=== PATIENT | female | born 1940 | race Caucasian/White ===

== ENCOUNTER → 2017-05-03 11:20 | Outpatient (CLI) | payer MEDICARE, SELFPAY ==
[2017-05-03 12:42] LABS: Anion Gap 5 (5-15); BUN 12 mg/dL (7-18); BUN/Creat Ratio 18.8 RATIO (10-20); Calcium,Total 8.6 mg/dL (8.5-10.1); Chloride 106 mmol/L (98-107); Creatinine, Serum 0.64 mg/dL (0.55-1.02); EST Glomerular Filtration Rate 97 mL/min (>60); Est Glom Filt Rate - Afr Amer 117 mL/min (>60); Glucose 76 mg/dL (74-106); Potassium 2.9 mmol/L (3.5-5.1); Sodium Level 140 mmol/L (136-145); Thyroid Stim Hormone (TSH) 2.78 uIU/mL (0.358-3.74)
[2017-05-04 09:28] LABS: PTHIN 73.7 pg/mL (18.4-80.1)
[2017-05-04 09:42] LABS: Vitamin D,25 Hydroxy 36.2 ng/mL (29.95-100.01)
== END ==
PROVIDERS: Family Provider Family Medicine; PCP Family Medicine; Visit Provider Family Medicine
DX: E03.9 Hypothyroidism, unspecified (principal); M81.0 Age-related osteoporosis without current pathological fracture
CPT/HCPCS: 36415; 80048; 82306; 82330; 83970; 84443

== ENCOUNTER → 2017-05-16 13:56 | Outpatient (CLI) | payer MEDICARE, SELFPAY ==
[2017-05-16 16:23] LABS: Anion Gap 7 (5-15); BUN 10 mg/dL (7-18); Calcium,Total 9.2 mg/dL (8.5-10.1); Chloride 102 mmol/L (98-107); Creatinine, Serum 0.67 mg/dL (0.55-1.02); EST Glomerular Filtration Rate 92 mL/min (>60); Est Glom Filt Rate - Afr Amer 111 mL/min (>60); Glucose 72 mg/dL (74-106); Potassium 3.3 mmol/L (3.5-5.1); Sodium Level 141 mmol/L (136-145)
== END ==
PROVIDERS: Visit Provider Family Medicine
DX: E87.6 Hypokalemia (principal)
CPT/HCPCS: 36415; 80048

== ENCOUNTER → 2017-05-19 09:42 | Outpatient (CLI) | payer MEDICARE, SELFPAY ==
--- NOTE | 2017-05-19 10:02 | CDU_ITS ---
Reason For Study: Carotid stenosis Rt. Velocities/BP Lt. Velocities/BP Prox CCA 87.4/18.2 cm/sec. Prox CCA 111.0/21.1 cm/sec. Mid CCA 82.7/16.4 cm/sec. Mid CCA 81.5/22.3 cm/sec. Dist CCA 75.6/17.6 cm/sec. Dist CCA 76.8/19.3 cm/sec. Prox ICA 58.6/18.2 cm/sec. Prox ICA 56.9/19.3 cm/sec. Mid ICA 76.8/21.7 cm/sec. Mid ICA 68.0/23.5 cm/sec. Dist ICA 76.8/24.0 cm/sec. Dist ICA 72.7/23.5 cm/sec. Rt. ICA/CCA = .93. Lt. ICA/CCA = .89. Prox ECA 56.9/10.0 cm/sec. Prox ECA 63.9/9.4 cm/sec. Rt. Vert. 61.6/15.8 cm/sec. Lt. Vert. 62.1/18.8 cm/sec. Right Extracranial There is intimal thickening but no significant atherosclerotic plaque noted in the right common carotid artery. There is no significant atherosclerotic plaque noted in the right internal carotid artery. There is no significant atherosclerotic plaque noted in the right external carotid artery. Antegrade flow is noted in the right vertebral artery. Left Extracranial There is intimal thickening but no significant atherosclerotic plaque noted in the left common carotid artery. There is no significant atherosclerotic plaque noted in the left internal carotid artery. There is no significant atherosclerotic plaque noted in the left external carotid artery. Antegrade flow is noted in the left vertebral artery. Procedure Carotid Duplex 15246. Exam performed in department. Interpretation Summary No significant atherosclerotic plaque or stenosis noted in the internal carotid arteries bilaterally. Flow within the vertebral arteries is antegrade bilaterally. Ordering Physician: Tereso Abrams Referring Physician: Tereso Abrams Performed By: Odette Salvador RVT
== END ==
PROVIDERS: Family Provider Family Medicine; PCP Family Medicine; Visit Provider Family Medicine
DX: I65.23 Occlusion and stenosis of bilateral carotid arteries (principal)
CPT/HCPCS: 93880

== ENCOUNTER → 2017-05-24 08:29 | Outpatient (CLI) | payer MEDICARE, SELFPAY ==
--- NOTE | 2017-05-24 08:32 | BD_ITS ---
STUDY: DUAL ENERGY X-RAY ABSORPTIOMETRY / DXA REASON FOR EXAM: Female, 76 years old. The patient is postmenopausal. Loss of height. TECHNIQUE: Bone Mineral Density (BMD) measurements of lumbar spine and bilateral hips were obtained. COMPARISON: Comparison is made with prior study dated January 14, 2015. FINDINGS: Lumbar Spine (L1-L4): g/cm2 (0.788) / T-score (-3.2) / Z-score (-1.4) Findings are suggestive of osteoporosis with a high fracture risk. Left Femur Total: g/cm2 (0.799) / T-score (-1.7) / Z-score (0.1) Left Femoral Neck: g/cm2 (0.717) / T-score (-2.3) / Z-score (-0.4) Right Femur Total: g/cm2 (0.788) / T-score (-1.7) / Z-score (0.0) Right Femoral Neck: g/cm2 (0.739) / T-score (-2.2) / Z-score (-0.2) The T-Scores on the most recent prior examination were: Lumbar Spine (L1-L4): There has been improvement of bone density since the previous examination. Left Femur Total: which represents an improvement of 5.0%. Right Femur Total: which represents an improvement of 4.9%. BD/Dexa Bone Density Study IMPRESSION: The patient is considered osteoporotic at the level of the lumbar spine as outlined below according to World Brian Organization (WHO) criteria with a high fracture risk. There has been improvement of bone density since the previous examination. Reference Information: The T-score is the number of standard deviations above or below the standard which is normal for young adults at their peak bone mineral density. The World Health Organization (WHO) interprets the T-scores as follows: Above -1 Normal bone density Between -1 and -2.5 Osteopenia Equal to / or below -2.5 Osteoporosis As a practical clinical guideline, osteopenia may be graded as follows: Mild -1 through -1.5 Moderate -1.6 through -2.0 Severe -2.1 through -2.4 The Z-score is the number of standard deviations above or below age-matched controls. A Z-score of less than -1.5 would be considered abnormal. References: 1. NIH Osteoporosis and Related Bone Diseases http://www.osteo.org 2. International Society for Clinical Densitometry http://www.iscd.org 3. National Osteoporosis Foundation http://www.nof.org Electronically Signed: Elie Newman MD at 13:27 EDT Tel [phone], Service support ,
--- NOTE | 2017-05-24 08:38 | HPBI_ITS ---
MAMMOGRAPHY - BILATERAL SCREENING REASON FOR EXAM: Female, 76 years old. Routine annual screening examination. PERTINENT HISTORY: Aunt with breast cancer. TECHNIQUE: Digital bilateral breast linda (3D mammographic acquisition) in the CC and MLO projections. 2-D mediolateral oblique (MLO) and craniocaudad (CC) views of both breasts were obtained. CAD: Full Field Digital Mammography with Computer Added Detection was performed. COMPARISON: Comparison is made with prior study dated April 05, 2016 and January 14, 2015. FINDINGS: Breast Composition: The breasts are heterogeneously dense, which may obscure small masses. There are no dominant masses or suspicious calcifications. No other significant abnormalities are identified. There has been no significant change since the prior study. HPBI/SCREENING MAMM (CAD), BILAT IMPRESSION: Stable bilateral screening mammogram. Yearly follow-up mammogram recommended. (A) ASSESSMENT CATEGORY: BIRADS Category 1: Negative. A letter regarding these results will be sent to the patient by the facility within 30 days. Approximately 10% of breast cancers are not detected by mammography. A normal mammogram should not delay biopsy of a clinically suspicious abnormality. [id number] Electronically Signed: Elie Newman MD at 9:50 EDT Tel [phone], Service support ,
== END ==
PROVIDERS: Family Provider Family Medicine; PCP Family Medicine; Visit Provider Family Medicine
DX: Z00.00 Encounter for general adult medical examination without abnormal findings (principal); M81.0 Age-related osteoporosis without current pathological fracture; Z78.0 Asymptomatic menopausal state; Z12.31 Encounter for screening mammogram for malignant neoplasm of breast
CPT/HCPCS: 77063; 77067; 77080

== ENCOUNTER → 2017-06-06 15:07 | Outpatient (CLI) | payer MEDICARE, SELFPAY ==
[2017-06-06 17:43] LABS: Anion Gap 7 (5-15); BUN 12 mg/dL (7-18); BUN/Creat Ratio 19.5 RATIO (10-20); Calcium,Total 8.7 mg/dL (8.5-10.1); Chloride 102 mmol/L (98-107); Creatinine, Serum 0.62 mg/dL (0.55-1.02); EST Glomerular Filtration Rate 101 mL/min (>60); Est Glom Filt Rate - Afr Amer 122 mL/min (>60); Glucose 81 mg/dL (74-106); Potassium 3.6 mmol/L (3.5-5.1); Sodium Level 138 mmol/L (136-145)
== END ==
PROVIDERS: Family Provider Family Medicine; PCP Family Medicine; Visit Provider Family Medicine
DX: E87.6 Hypokalemia (principal)
CPT/HCPCS: 36415; 80048

== ENCOUNTER → 2017-06-09 10:49 | Outpatient (CLI) | payer MEDICARE, SELFPAY ==
--- NOTE | 2017-06-09 11:02 | RAD_ITS ---
STUDY: X-RAY - CERVICAL SPINE REASON FOR EXAM: Female, 76 years old. Chronic neck pain. TECHNIQUE: 6 view(s) of the cervical spine were obtained including oblique views. COMPARISON: None FINDINGS: Normal anterior atlantoaxial articulation. Normal odontoid process. Normal cervical lordosis. There is multi-level endplate spondylosis. There is multi-level degenerative disc disease with multilevel disc space narrowing. Facet joint osteoarthritis. There is evidence for neural foraminal stenosis at the right C4-C5 and C5-C6 levels. The soft tissue structures are unremarkable. RAD/Cerv Spine 4 or 5 Views IMPRESSION: Multilevel spondylosis and disc space narrowing. 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 Electronically Signed: Elie Newman MD at 11:22 EDT Tel [phone], Service support ,
== END ==
PROVIDERS: Family Provider Family Medicine; PCP Family Medicine; Visit Provider Family Medicine
DX: M47.892 Other spondylosis, cervical region (principal); M48.02 Spinal stenosis, cervical region
CPT/HCPCS: 72050

== ENCOUNTER 2017-07-12 08:00 | Outpatient (RCR) | payer MEDICARE, SELFPAY ==
--- NOTE | 2017-06-15 12:08 | HP.PTEVAL_ITS ---
Patient's Visit Information DEANA LYNN is a 76 year old F referred to Physical Therapy by Tereso Abrams with a diagnosis of CERVICAL DDD. Date of Evaluation: 06/15/17 Physical Therapist: Josep Quintanilla PT, - Visit Plan Frequency: 2x /Week Duration: 3 Weeks Plan: US/MHP,CERVICAL ROM,POSTURAL STRENGTHENING,ICTX - Subjective Subjective: This 76 y/o female presents to physical therapy with cervical DDD for several years. Symptoms base at cervical spine desribed as dull pain. Symptoms worse with flexion ,yoga bending foward.. Symptoms better on the move exercises.Denies parathesia/tingling.Denies LAMAR/dizzines/tinnutus. Patient seen DR had x-rays showed DDD and right foraminal stenosis. Sleeping okay at night. VOCATION: retired. SOCIAL: - Pain Bilateral Neck Pain Intensity (Out of 10): 3 Pain Intensity Range: 10 - Objective POSTURE: mild foward posture rounded shoulders head foward. NEURO: denies parathesia/tingling ,reflexes C5-6-7 /. PALAPTION: tender UT/LEVATOR ,. AROM : BUE WFL. CERVICAL ROM: cervical ROM min loss,extension mod loss,rotation mod loss,extension mod loss pain worse on right. MMT: grossly 4/5 ,shoulder 4-/5 - Special Tests C/S Radiculapathy - Left Upper limb tension test: Negative C/S Radiculapathy - Right Upper limb tension test: Negative C/S Radiculapathy - Left Spurlings: Negative C/S Radiculapathy - Right Spurlings: Negative C/S Radiculapathy - Left Cervical distraction: Negative C/S Radiculapathy - Right Cervical distraction: Negative C/S Radiculapathy - Left Relief test: Negative - Goals Goal 1:: Patient to be Independant with HEP Goal Time Frame: 2-4 Weeks Goal 2:: Patient to be Independant with posture for ADL'S Goal Time Frame: 2-4 Weeks Goal 3:: Patient decrease cervical pain by 50% or greater to improve function with ADL'S Goal Time Frame: 2-4 Weeks Goal 4:: Patient to improve cervical ROM for function of recovery Goal Time Frame: 2-4 Weeks Goal 5:: Patient be able to perform ADLS',yoga and housework tasks with min limiations Goal Time Frame: 2-4 Weeks - Rehabilitation Potential Physical Therapy Diagnosis: This patient has cervical pain assymtrical central affects with pain with Cervical ROM ,function ,ADL'S thus benifit from skilled PT Rehabilitation Potential: Good - Anticipated Interventions Patient/Client Instruction: Educate patient on: Condition, Plan of Care For the Purpose of:: To decrease pain, To increase ROM, To improve muscle performance and motor function, To improve ability to perform ADL's, To increase tolerance to activity/condition/position, To improve performance and independence with ADL's, To improve ability of physical actions for home/ community/work/leisure, To improve health of tissue, To decrease soft tissue restriction, To increase flexibility/ROM, To improve ability to perform tasks related to life management Therapeutic Exercise to Include: Strength training, Power training, Postural training, Flexibilty training, Active ROM For the Purpose of:: To decrease pain, To increase ROM, To improve muscle performance and motor function, To improve ability to perform ADL's, To increase tolerance to activity/condition/position, To improve performance and independence with ADL's, To improve ability of physical actions for home/ community/work/leisure, To improve health of tissue, To decrease soft tissue restriction, To increase flexibility/ROM, To reduce risk of recurrence, To improve ability to perform tasks related to life management TENS: Yes IF ES: Yes Cryotherapy (ice pack, ice massage): Yes Thermo therapy (hot pack): Yes Ultrasound (thermal/non thermal): Yes Intermittent cervical traction: Yes For the Purpose of:: To decrease pain, To increase ROM, To improve nutrient delivery to tissue, To increase oxygenation perfusion, To improve health of tissue, To decrease soft tissue restriction Thank you for the opportunity to evaluate your patient. For Medicare and Medicare HMO plans, please review the plan of care and approve it. It will need to be FAXED BACK to us at [phone] for Medicare purposes. Please let me know if there are questions or concerns regarding this plan of care. Physician Signature: Date:
--- NOTE | 2017-07-12 08:53 | HP.PTDCSUM ---
HP - PT D/C Summary It has been my pleasure to treat DEANA LYNN under orders from Tereso Abrams, for the diagnosis of CERVICAL DDD for a total of 7 visit(s). Discharge Date: 07/12/17 Please see the following information for a summary of their discharge status. - Subjective Subjective: Pt states that she is doing well. She denies pain prior to the session. She will occasionally have pain while she is moving items into her new condo. She has tightness with R cervical rotation and lateral flexion. She remains compliant with HEP. She would like to be done after this visit. - Pain Bilateral Neck Pain Intensity (Out of 10): 0 - Overall Improvement % Improvement: 50 - Objective Objective/Function: Observation: forward head, high tone B upper traps. ROM: cervical flexion 25% limited, extension 25% limited, L rotation full, R rotation limited 25% and elicits pain,. thoracic extension ROM impaired with pain at end range but no worse after wards. MMT: 4/5 grossly ,4-/5. NEURO: intact. PALAPTION: UT/LEVATOR - Goals Goal 1:: Patient to be Independant with HEP Goal Progress: Goal Met Goal 2:: Patient to be Independant with posture for ADL'S Goal Progress: Goal Met Goal 3:: Patient decrease cervical pain by 50% or greater to improve function with ADL'S Goal Progress: Goal Met Goal 4:: Patient to improve cervical ROM for function of recovery Goal Progress: Goal Met Goal 5:: Patient be able to perform ADLS',yoga and housework tasks with min limiations Goal Progress: Goal Met - Plan Plan: Discharge. Pt to continue HEP to sustain gains made with PT. - D/C Information Discharge Comments: HEP If there are questions or concerns regarding this patient's physical therapy, please feel free to call me at [phone]. Thank you for the referral of this patient. Sincerely, Josep Quintanilla, PT,
== END 2017-07-12 19:00 | disposition home or self-care (01) ==
LOC: PT 08:00
PROVIDERS: Family Provider Family Medicine; PCP Family Medicine; Visit Provider Family Medicine
DX: M50.30 Other cervical disc degeneration, unspecified cervical region (principal)
CPT/HCPCS: 97035; 97140; 97162

== ENCOUNTER → 2017-11-28 09:09 | Outpatient (CLI) | payer MEDICARE, SELFPAY ==
[2017-11-28 10:28] LABS: Hematocrit 39.6 % (37-47); Hemoglobin 13.1 g/dl (12.0-15.0); Mean Corp Hgb Conc 33.1 g/gl (32-36); Mean Corpuscular Hgb 29.9 pg (27.0-32.0); Mean Corpuscular Volume 90.4 fL (81-99); Mean Platelet Vol. 10.2 fl (6.2-12.0); Platelet Count 231 K/mm3 (150-450); RBC Distribution Width CV 13.1 % (11.6-14.6); RBC Distribution Width SD 43.4 fl (35.1-43.9); Red Blood Count 4.38 M/mm3 (4.2-5.4); White Blood Count 3.4 K/mm3 (4.4-11.0)
[2017-11-28 10:29] LABS: Scan Indicated on CBC? Y/N NO
[2017-11-28 11:16] LABS: Anion Gap 9 (5-15); BUN 11 mg/dL (7-18); BUN/Creat Ratio 17.2 RATIO (10-20); Calcium,Total 8.8 mg/dL (8.5-10.1); Chloride 103 mmol/L (98-107); Creatinine, Serum 0.64 mg/dL (0.55-1.02); EST Glomerular Filtration Rate 96 mL/min (>60); Est Glom Filt Rate - Afr Amer 116 mL/min (>60); Glucose 77 mg/dL (74-106); Iron 65 ug/dL (50-170); Potassium 3.4 mmol/L (3.5-5.1); Sodium Level 140 mmol/L (136-145); T4 Free Direct 1.25 ng/dL (0.76-1.46)
== END ==
PROVIDERS: Family Provider Family Medicine; PCP Family Medicine; Visit Provider Family Medicine
DX: M81.0 Age-related osteoporosis without current pathological fracture (principal); D64.9 Anemia, unspecified; E03.9 Hypothyroidism, unspecified
CPT/HCPCS: 36415; 80048; 83540; 84439; 84443; 85027

== ENCOUNTER 2018-01-09 08:52 | Observation (INO) | payer MEDICARE, SELFPAY ==
[2018-01-09] VITALS (15 sets, daily range): BP systolic 142–189; BP diastolic 76–111; PULSE 76–98; RESP 16–18; TEMP 36.8–37.4; O2SAT 94–100; BMI 20.9
--- NOTE | 2018-01-09 09:13 | EKG12_ITS ---
Test Reason : DIZZINESS Blood Pressure : / mmHG Vent. Rate : 085 BPM Atrial Rate : 085 BPM P-R Int : 202 ms QRS Dur : 072 ms QT Int : 380 ms P-R-T Axes : 076 026 060 degrees QTc Int : 452 ms Normal sinus rhythm Possible Left atrial enlargement Nonspecific ST and T wave abnormality Abnormal ECG Confirmed by JANA COOPER, KARLY ([id number]), editor book KRISTINE OSBORNE ([id number]) on 01/11/2018 11:18:37 AM Referred By: JORGE Confirmed By:KARLY BATES MD
--- NOTE | 2018-01-09 09:13 | CT_ITS ---
STUDY: CT BRAIN WITHOUT CONTRAST REASON FOR EXAM: Female, 77 years old. Dizziness. RADIATION DOSAGE (If Supplied By Facility): CTDIvol = ( 44.99 ) mGy, DLP = ( 745.49 ) mGycm TECHNIQUE: Transaxial CT imaging of the brain was performed without administration of intravenous contrast material. Individualized dose optimization techniques were used for this CT. COMPARISON: Comparison is made with prior study dated December 03, 2015. FINDINGS: Normal soft tissue structures. Normal calvarium. There is mild cerebral atrophy with widening of the extra-axial spaces and ventricular dilatation. There are areas of decreased attenuation within the white matter tracts of the supratentorial brain, consistent with microvascular disease changes. Normal basal ganglia and thalami. Normal brainstem. Normal cerebellum. There is no intracranial hemorrhage. There are no findings of an acute ischemic infarction. Atherosclerotic calcification of the cavernous portions of the internal carotid arteries bilaterally as well as the vertebral arteries. Normal visualized paranasal sinuses. CT/Brain/Head without Contrast IMPRESSION: Chronic involutional changes of the brain. Electronically Signed: Elie Newman MD at 10:27 EST Tel [phone], Service support ,
[2018-01-09 09:32] LABS: Absolute Lymphocyte Count 0.99 X10^3/ul (0.83-4.51); Absolute Neutrophil Count 2.4 X10^3/uL (2.0-7.7); Basophil# 0.01 X10^3/uL; Basophil% 0.3 % (0-1); Eosinophil# 0.04 X10^3/uL; Eosinophils% 1.1 % (0-5); Hematocrit 42.2 % (37-47); Hemoglobin 14.4 g/dl (12.0-15.0); Lymphocyte # 0.99 X10^3/ul (4.0); Lymphocyte % 26.1 % (19-41); Mean Corp Hgb Conc 34.1 g/gl (32-36); Mean Corpuscular Hgb 30.8 pg (27.0-32.0); Mean Corpuscular Volume 90.2 fL (81-99); Mean Platelet Vol. 10.1 fl (6.2-12.0); Monocyte# 0.32 X10^3/uL; Monocyte% 8.4 % (0-10); Neutrophil # 2.42 X10^3/uL (2.7-7.7); Neutrophil % 63.8 % (47-70); Platelet Count 238 K/mm3 (150-450); RBC Distribution Width CV 12.8 % (11.6-14.6); RBC Distribution Width SD 41.9 fl (35.1-43.9); Red Blood Count 4.68 M/mm3 (4.2-5.4); White Blood Count 3.8 K/mm3 (4.4-11.0)
[2018-01-09 09:33] LABS: POSITIVE COUNT NO; POSITIVE DIFFERENTIAL NO; POSITIVE MORPHOLOGY NO
[2018-01-09 09:38] LABS: Partial Thromboplast Time 24.6 Seconds (24.1-36.2); Prothrombin Time (Protime)PT. 12.8 SECONDS (11.7-14.9)
--- NOTE | 2018-01-09 09:45 | RAD_ITS ---
STUDY: X-RAY CHEST REASON FOR EXAM: Female, 77 years old. Cough. Dizziness. TECHNIQUE: Single AP portable view of the chest. COMPARISON: Comparison is made with prior study dated November 07, 2015. FINDINGS: Hyperinflation. Scattered calcified granulomas. The lungs are clear. There is no demonstrated pleural abnormality. Normal size heart. Normal mediastinum and fani. Normal visualized pulmonary arteries. There is atherosclerotic calcification of the aortic arch with tortuosity. Normal visualized thoracic spine. Normal visualized ribs, clavicles, and shoulders. There is no demonstrated abnormality of the visualized soft tissue structures of the upper abdomen. RAD/Chest 1 View IMPRESSION: Hyperinflation. The lungs are clear. Electronically Signed: Elie Newman MD at 10:28 EST Tel [phone], Service support ,
[2018-01-09 09:50] LABS: Anion Gap 11 (5-15); BUN 8 mg/dL (7-18); BUN/Creat Ratio 10.9 RATIO (10-20); Calcium,Total 8.8 mg/dL (8.5-10.1); Chloride 101 mmol/L (98-107); Creatinine, Serum 0.73 mg/dL (0.55-1.02); EST Glomerular Filtration Rate 82 mL/min (>60); Est Glom Filt Rate - Afr Amer 99 mL/min (>60); Glucose 89 mg/dL (74-106); Potassium 3.3 mmol/L (3.5-5.1); Sodium Level 140 mmol/L (136-145)
[2018-01-09 11:06] LABS: Bacteria 0 SEEN /hpf (None Seen); Mucous, Urine 0 SEEN /hpf (<or=2+); Red Blood Cells-Urine 0 SEEN /hpf (0-5); Squamous Epithelial Cells - UA 0 SEEN /hpf (5-10); White Blood Cells 0 SEEN /hpf (0-5)
[2018-01-09 11:09] LABS: Color, Urine Straw (Yellow); Glucose, Dipstick Normal (Normal); Ketone-Dipstick Negative (Negative); Leukocyte Esterase-Dipstick Negative /ul (Negative); Nitrite-Dipstick Negative (Negative); Occult Blood-Urine Negative /ul (Negative); Protein-Dipstick Negative (Negative); Urine Bilirubin Dipstick Negative (Negative); Urine Clarity Clear (Clear); Urine Urobilinogen Normal (Normal)
--- NOTE | 2018-01-09 12:03 | ED.DCSUM_ITS ---
- ER Visit Summary Date of Service: 01/09/18 Chief Complaint: Not able to think right History of Present Illness: The patient is a 77 F presenting for evaluation secondary to confusion. Patient has an underlying history of hypertension. Patient states that she is on a beta-lety for this and intermittently takes steroids. Patient states that about 30 minutes prior to arrival he had a feeling of lightheadedness. She states that this was associated with a feeling of inability to think correctly and an inability to remember things. Patient states that she was having some difficulty with remembering medications. She does endorse that she is having some numbness in her hands bilaterally right b eing worse than left. Patient denies any fever or visual changes weakness cough nausea vomiting diarrhea chest pain or shortness of breath associated with this. Review of systems otherwise negative. Physical Examination: Vital signs are within normal limits, patient is afebrile. General: Patient is well-nourished well-developed and in no acute distress. Head: Normocephalic, atraumatic Eyes: Pupils equal round and reactive bilaterally, extra occular motion intact bialterally ENT: Moist mucous membranes Neck: Supple, no lymphadenopathy, no JVD, no meningismus CVS: Heart regular rate and rhythm, no murmurs, rubs or gallops, radial pulses 2+ bilaterally Resp: Respirations nondistressed, lung sounds clear bilaterally Abdomen: Soft, nontender, nondistended, no palpable masses, normal bowel sounds Back: Nontender Extremities: Nontender, atraumatic, active full range of motion, no peripheral edema Skin: warm, no rashes, no petechia Neuro: Alert and oriented x 4, CN 2-12 intact, no lateralizing neurological defecits, NIH stroke scale is 0. Normal cerebellar testing. Psyc: Normal affect Test Results: CT brain shows chronic changes. EKG shows a first-degree AV block with a sinus rate of [address] segments normal T waves. CBC chemistry urinalysis and troponin found to be negative. Emergency Department Course and Treatment: Patient presented for evaluation secondary to confusion. Workup is negative as noted above. Patient I do believe has risk factors including age and hypertension for the possibility of stroke. I believe she requires admission for further workup of this. I discussed this with hospitalist. Disposition: Admission Impression: 1. Confusion This note was generated with [employer] dictation software. It may contain incorrect words, spelling, and punctuation that were not noted in review of the chart prior to signing ED Disposition - Plan for ED Patient: Chief Complaint: Dizziness Referrals: Jose Abrams MD [Primary Care Provider] -
--- NOTE | 2018-01-09 12:53 | CT_ITS ---
STUDY: CTA OF THE BRAIN REASON FOR EXAM: Female, 77 years old. Dizziness and stroke RADIATION DOSAGE (If Supplied By Facility): CTDIvol = ( 10.7 ) mGy, DLP = ( 459.86 ) mGycm TECHNIQUE: CT angiography was performed with a multi-detector CT scanner. Data acquisition was obtained from the skull base through the vertex following intravenous administration of 100 ml of Isovue-370. MIP images were reconstructed from the axial data set. Post-processing of the angiographic images was performed, with multiplanar reformation and 3D reconstruction. Individualized dose optimization techniques were used for this CT. COMPARISON: CT brain January 09, 2018 and CTA brain December 03, 2015 FINDINGS: Normal bilateral petrous carotid arteries. Normal right cavernous carotid artery with a normal supraclinoid bifurcation. Normal left cavernous carotid artery with a normal supraclinoid bifurcation. Normal right A1 segments of the anterior cerebral artery. Normal left A1 segments of the anterior cerebral artery. Normal intact anterior communicating artery (ACOM). Normal bilateral A2 segments of the anterior cerebral arteries. Normal right M1 and M2 segments of the middle cerebral arteries, with a normal M1 bifurcation. Normal left M1 and M2 segments of the middle cerebral arteries, with a normal M1 bifurcation. Normal right posterior communicating artery (PCOM). There is non-visualization of the left posterior communicating artery (PCOM). Normal bilateral vertebral arteries. Normal basilar artery with a normal basilar bifurcation. The visualized bilateral superior cerebellar (SCA) arteries are normal. Normal bilateral P1, P2 and visualized P3 segments of the posterior cerebral arteries. There is no demonstrated aneurysm of the [place]. There is no demonstrated abnormality of the visualized brain. CT/CTA Head W/WO Contrast IMPRESSION: Normal [place] without a demonstrated aneurysm or hemodynamically significant stenosis. Electronically Signed: Ap Chacko MD at 16:53 EST , Service support ,
--- NOTE | 2018-01-09 12:53 | CT_ITS ---
STUDY: CTA NECK WITH CONTRAST REASON FOR EXAM: Female, 77 years old. Dizziness and stroke RADIATION DOSAGE (If Supplied By Facility): CTDIvol = ( 10.7 ) mGy, DLP = ( 459.86 ) mGycm TECHNIQUE: CT angiography with multi-detector data acquisition was performed from the aortic arch to the skull base following intravenous administration of 100 ml of Isovue 370 contrast. MIP images were reconstructed from the axial data set. Post-processing of the angiographic images was performed, with multiplanar reformation and 3D reconstruction. Individualized dose optimization techniques were used for this CT. COMPARISON: CT brain January 09, 2018 FINDINGS: AORTIC ARCH: Normal visualized aortic arch. Normal origins of the brachiocephalic, left common carotid, and left subclavian arteries. RIGHT CAROTID ARTERIES: Normal right common carotid artery (CCA). Normal right common carotid bulb. Normal origin of the right internal carotid (ICA) artery without a hemodynamically significant stenosis. Normal visualized cervical portion of the right internal carotid artery. Normal origin of the right external carotid artery (ECA). LEFT CAROTID ARTERIES: Normal left common carotid artery (CCA). Normal left common carotid bulb. Normal origin of the left internal carotid (ICA) artery without a hemodynamically significant stenosis. Normal visualized cervical portion of the left internal carotid artery. Normal origin of the left external carotid artery (ECA). VERTEBRAL ARTERIES: Normal bilateral vertebral arteries. CT/CTA Neck W/WO Contrast IMPRESSION: Normal bilateral cervical carotid and vertebral arteries. Electronically Signed: Ap Chacko MD at 16:29 EST , Service support ,
--- NOTE | 2018-01-09 12:53 | ECHOD_ITS ---
Reason For Study: TIA/CVA Procedure This was a 2D Doppler, Color Flow transthoracic echocardiogram. Exam performed portable in ED. Left Ventricle Mild eccentric left ventricular hypertrophy. The estimated ejection fraction is 65 %. Stage 1 diastolic dysfunction. No regional wall motion abnormalities noted. Right Ventricle Normal size and thickness. Normal systolic function. Atria Normal left atrium. Normal right atrium. Normal atrial septum. Mitral Valve The mitral valve is structurally normal. No prolapse or stenosis seen. Trivial mitral valve insufficiency. Tricuspid Valve Normal tricuspid valve. Trivial tricuspid valve insufficiency. Right ventricular systolic pressure estimated to be 24 mmHg. Aortic Valve Trisinus/trileaflet aortic valve. Aortic sclerosis, no stenosis. Pulmonic Valve Normal pulmonic valve. Great Vessels Normal aortic root. Normal arch. Normal inferior vena cava. Inferior vena cava collapse with sniff. Pericardium/Pleural No pericardial effusion. Medication Performed a rapid injection of agitated mix of 9 cc saline and 1cc air to assess for atrial septal defect. MMode/2D Measurements & Calculations LVIDd: 3.9 cm IVSd: 1.2 cm Ao root diam: 2.7 cm LVIDs: 2.6 cm LVPWd: 0.98 cm RVDd: 2.4 cm FS: 33.2 % LAV(MOD-bp): 28.9 ml LA A4 area: 10.8 cm2 LA dimension(2D): 2.4 cm LAV(MOD-bp) Indexed: 20.7 ml/m2 LAV(MOD-sp2): 26.6 ml LAV(MOD-sp4): 26.6 ml RA A4 area: 9.8 cm2 Time Measurements MV dec time: 0.25 sec Doppler Measurements & Calculations MV E max jayme: 58.5 cm/sec Lat Peak E' Jayme: 4.0 cm/sec Med Peak E' Jayme: 5.2 cm/sec MV A max jayme: 99.9 cm/sec E/E' lat: 14.8 E/E' med: 11.2 MV E/A: 0.59 Ao V2 max: 125.7 cm/sec LV V1 max: 122.2 cm/sec PA V2 max: 87.2 cm/sec Ao max P.3 mmHg LV V1 max P.0 mmHg TR max jayme: 218.4 cm/sec TR max P.1 mmHg Interpretation Summary Mild eccentric left ventricular hypertrophy. The estimated ejection fraction is 65 %. Stage 1 diastolic dysfunction. Trivial mitral valve insufficiency. Trivial tricuspid valve insufficiency. Right ventricular systolic pressure estimated to be 24 mmHg. Compared to echo report dated 07/01/2014, no appreciable changes noted. Ordering Physician: Elier Gordon Referring Physician: Tereso Abrams Performed By: Katie Camacho RDCS, RVT
--- NOTE | 2018-01-09 12:53 | MRI_ITS ---
STUDY: MRI BRAIN WITHOUT CONTRAST REASON FOR EXAM: Female, 77 years old. TIA, and numbness and headaches. Syncope. TECHNIQUE: Standardized multiplanar fat and water weighted pulse sequences were obtained. COMPARISON: CTA brain January 09, [address] brain same date. FINDINGS: There is mild cerebral atrophy with widening of the extra-axial spaces and ventricular dilatation. There are a limited number of small white matter hyperintensities, distributed throughout the deep white matter tracts of the cerebral hemispheres, consistent with mild chronic white matter ischemic changes. There is no evidence for recent intracranial ischemia or other cause of cytotoxic edema on diffusion weighted imaging (DWI). There are prominent perivascular spaces (PVS) involving the basal ganglia. Normal thalami. There is no extra-axial fluid accumulation. Normal flow voids within the major intracranial circulation suggesting patency by spin echo criteria. Normal sella turcica, pituitary gland, infundibular stalk, optic chiasm and hypothalamus. Normal tectal plate and pineal gland. Normal midbrain, [place] and medulla. Normal cerebellum. Normal basal cisterns. Normal bilateral temporal bones. Normal bilateral internal auditory canals. There are bilateral ocular lens implants with otherwise normal intraorbital contents. Normal visualized paranasal sinuses. Normal calvarium and skull base. Normal visualized soft tissue structures. Normal visualized upper cervical spine. MRI/Brain without Contrast IMPRESSION: Involutional changes of the brain, as described above. Electronically Signed: Ap Chacko MD at 19:31 EST , Service support ,
--- NOTE | 2018-01-09 13:58 | PCM.HP.STD ---
Problem List (1) TGA (transient global amnesia) Status: Acute (2) Essential hypertension Status: Chronic (3) Vasovagal syncope Status: Chronic (4) Fibromyalgia Status: Chronic (5) Hyperlipidemia Status: Chronic (6) Paroxysmal tachycardia Status: Chronic (7) Premature ventricular contraction Status: Chronic (8) Premature atrial contractions Status: Chronic History of Present Illness Date of Admission: 01/09/18 Chief Complaint: Forgetfulness The patient is a 77 year old F past medical history is none for recurrent vasovagal syncope for which she is followed by cardiology, hypertension, lipidemia who presents with forgetfulness. Patient symptoms started on the morning of her presentation. Woke up feeling fuzzy. She did feel lightheaded felt she was going to pass out but she never did. She also did experience numbness in both upper extremities this was followed by episodes where she could not remember anything. Patient's brought her to the emergency department as a result. Initial imaging studies came back unremarkable however an assessment of possible transient global amnesia was made admitted to a monitored bed for subsequent management. Past Medical History Past Medical History (Chronic Problems): Chronic Problems (Last Updated 12/29/17 @ 08:35 by Linda Patel) Essential hypertension (Chronic) Vasovagal syncope (Chronic) Fibromyalgia (Chronic) Hyperlipidemia (Chronic) Paroxysmal tachycardia (Chronic) Premature ventricular contraction (Chronic) Premature atrial contractions (Chronic) Medical History: Medical History (Last Updated 12/29/17 @ 08:35 by Linda Patel) Essential hypertension (Chronic) I10 Vasovagal syncope (Acute) R55 Fibromyalgia (Chronic) M79.7 Hyperlipidemia (Chronic) E78.5 Paroxysmal tachycardia (Acute) I47.9 Premature ventricular contraction (Acute) I49.3 Premature atrial contractions (Acute) I49.1 GERD (gastroesophageal reflux disease) K21.9 Hypertension (Inactive) I10 Allergies Penicillins Allergy (Verified 01/09/18 08:55) Rash Sulfa (Sulfonamide Antibiotics) Allergy (Verified 01/09/18 08:55) Rash FLOURIDE Allergy (Uncoded 01/09/18 08:55) Rash cough syrup Adverse Reaction (Uncoded 01/09/18 13:12) Upset Stomach Home Medications: Ambulatory Orders Medication Instructions Recorded Ascorbic Acid [Vitamin C] 500 mg PO DAILY@0800 01/07/14 Multivitamins,Ther W-Minerals 1 tab PO DAILY 01/07/14 [Multivitamin With Minerals] Ranitidine [Zantac] 150 mg PO DAILY PRN PRN 01/07/14 fluticasone 50 mcg/actuation nasal 1 - 2 spray INTRANASAL DAILY PRN 10/17/17 spray,suspension levothyroxine 50 mcg tablet 25 mcg PO DAILY 10/17/17 potassium chloride ER 20 mEq 20 meq PO QHS 10/17/17 tablet,extended release Diltiazem CD [Cardizem CD] 120 mg PO QODAY 01/09/18 Ergocalciferol [Vitamin D] 2,000 units PO DAILY 01/09/18 Fludrocortisone Acetate [Florinef] 0.1 mg PO QHS 01/09/18 Surgical History: Surgical History (Last Reviewed 10/17/17 @ 09:18 by Linda Patel) H/O hysterectomy with oophorectomy History of section Z98.891 History of lymph node biopsy Z98.890 Excision Rt. Axillary Smoking Status: Never smoker - *Family History Maternal History Items: - - negative for stroke Review of Systems Constitutional: Reports: Anorexia Unable to obtain accurate/complete ROS d/t: Due to patient being forgetful VTE Information - Inpt Only VTE Present on Admission: No VTE Mechan Device Prophylaxis: Knee High LEANDER Hose VTE Pharm Prophylaxis ordered?: Yes Patient Problems: Active and Suspected Problems (Last Updated 12/29/17 @ 08:35 by Linda Patel) TGA (transient global amnesia) (Acute) Objective: GENERAL: cooperative HEENT: Atraumatic; moist oral mucosa EYES; Anicteric, Normal Conjunctiva NECK; supple, normal thyroid, no distended JVD. RESPIRATORY: Diminished to auscultation bilaterally, CARDIOVASCULAR: Regular S1 S2, no audible murmurs GI: soft, non-tender, normoactive bowel sounds, : No Renal angle tenderness; EXTREMITIES: No edema, no clubbing, no cyanosis. MUSCULOSKELETAL: No Joint Tenderness; no muscle waisting NEURO: Awake; no lateralizing signs. SKIN: No Rash PSYCH; Normal affect - Physical Exam Vital Signs Temp Pulse Resp BP Pulse Ox 98.3 F 96 16 181/102 H 98 01/09/18 12:49 01/09/18 12:51 01/09/18 12:49 01/09/18 12:51 01/09/18 12:49 Oxygen Delivery Method Room Air Weight: 47.174 kg Body Mass Index (BMI) 20.9 Finger Stick Blood Glucose 89 Laboratory Tests Past 24 Hrs 01/09/18 01/09/18 01/09/18 09:20 09:20 09:20 WBC 3.8 L RBC 4.68 Hgb 14.4 Hct 42.2 MCV 90.2 MCH 30.8 MCHC 34.1 RDW 12.8 RDW Differential 41.9 Plt Count 238 MPV 10.1 Immature Gran % (Auto) 0.300 Neut % (Auto) 63.8 Lymph % (Auto) 26.1 [place] % (Auto) 8.4 Eos % (Auto) 1.1 Baso % (Auto) 0.3 Absolute Neuts (auto) 2.4 Absolute Lymphs (auto) 0.99 Total Counted Not Reportable PT 12.8 INR 1.0 APTT 24.6 Sodium 140 Potassium 3.3 L Chloride 101 Carbon Dioxide 28.0 Anion Gap 11 BUN 8 Creatinine 0.73 Estim Creat Clear Calc 36.20 Est GFR (MDRD) Af Amer 99 Est GFR (MDRD) Non-Af 82 BUN/Creatinine Ratio 10.9 Glucose 89 Calcium 8.8 Troponin I < 0.015 Urine Color Urine Clarity Urine pH Ur Specific [place] Urine Protein Urine Glucose (UA) Urine Ketones Urine Occult Blood Urine Nitrite Urine Bilirubin Urine Urobilinogen Ur Leukocyte Esterase Urine RBC Urine WBC Ur Squamous Epith Cells Urine Bacteria Urine Mucus 01/09/18 01/09/18 11:00 13:00 WBC RBC Hgb Hct MCV MCH MCHC RDW RDW Differential Plt Count MPV Immature Gran % (Auto) Neut % (Auto) Lymph % (Auto) [place] % (Auto) Eos % (Auto) Baso % (Auto) Absolute Neuts (auto) Absolute Lymphs (auto) Total Counted PT INR APTT Sodium Potassium Chloride Carbon Dioxide Anion Gap BUN Creatinine Estim Creat Clear Calc Est GFR (MDRD) Af Amer Est GFR (MDRD) Non-Af BUN/Creatinine Ratio Glucose Calcium Troponin I < 0.015 Urine Color Straw Urine Clarity Clear Urine pH 8.0 Ur Specific [place] 1.010 Urine Protein Negative Urine Glucose (UA) Normal Urine Ketones Negative Urine Occult Blood Negative Urine Nitrite Negative Urine Bilirubin Negative Urine Urobilinogen Normal Ur Leukocyte Esterase Negative Urine RBC 0 SEEN Urine WBC 0 SEEN Ur Squamous Epith Cells 0 SEEN Urine Bacteria 0 SEEN Urine Mucus 0 SEEN Assessment/Plan All Active Problems (Last Updated 12/29/17 @ 08:35 by Linda Patel) TGA (transient global amnesia) (Acute) Patient is a 77-year-old lady presented with forgetfulness 1. Transient global amnesia: Patient has been admitted to monitored bed where she is undergoing subsequent evaluation. Ordered MRI of the head as well as CT angiogram of the head and neck. Started patient on antiplatelet aspirin ordered echo as well as neurology consultation 2. History of recurrent vasovagal syncopal episodes; and on Florinef 3. History of cardiac arrhythmias including PVCs, PACs as well as PACs patient on Cardizem 4. Hypothyroidism-patient is on levothyroxine home dose continued 5. Dyslipidemia managed with only diet 6. Fibromyalgia; symptomatic treatment 7. DVT prophylaxis SC Lovenox Code Visit OBSV E&M: 80581 Initial observation care L3
--- NOTE | 2018-01-09 14:26 | CON.PCM_ITS ---
Problem List (1) TGA (transient global amnesia) Status: Acute Reason for Consult Date of Consultation: 01/09/18 Reason for Consultation: TGA History of Present Illness: The patient is a 77 year old CF with PMH HTN, HLD, vasovagal/neurocardiogenic syncope, hypothyroidism, GERD, fibromyalgia admitted with episode of confusion. Per patient she woke up normal this morning (01/09/18), then later had episode of confusion, disorientation per , where she was forgetful, did not remember things, was repeating herself, patient also felt dizzy and light headed, with numbness in both hands, along with generalized LAMAR, at present is at her baseline, denies any focal motor weakness, sensory loss, visual disturbances, or facial droop. CT head done on admission did not reveal anything acute. Had high BP in the ED on admission. Denies any witnessed seizures, lives with her , denies any falls, does drive and does not use cane or walker to ambulate. [] Past Medical History Past Medical History (Chronic Problems): Chronic Problems (Last Updated 12/29/17 @ 08:35 by Linda Patel) Essential hypertension (Chronic) Vasovagal syncope (Chronic) Fibromyalgia (Chronic) Hyperlipidemia (Chronic) Paroxysmal tachycardia (Chronic) Premature ventricular contraction (Chronic) Premature atrial contractions (Chronic) Medical History: Medical History (Last Updated 12/29/17 @ 08:35 by Linda Patel) Essential hypertension (Chronic) I10 Vasovagal syncope (Chronic) R55 Fibromyalgia (Chronic) M79.7 Hyperlipidemia (Chronic) E78.5 Paroxysmal tachycardia (Chronic) I47.9 Premature ventricular contraction (Chronic) I49.3 Premature atrial contractions (Chronic) I49.1 GERD (gastroesophageal reflux disease) K21.9 Hypertension (Inactive) I10 Allergies Penicillins Allergy (Verified 01/09/18 08:55) Rash Sulfa (Sulfonamide Antibiotics) Allergy (Verified 01/09/18 08:55) Rash FLOURIDE Allergy (Uncoded 01/09/18 08:55) Rash cough syrup Adverse Reaction (Uncoded 01/09/18 13:12) Upset Stomach Home Medications: Ambulatory Orders Medication Instructions Recorded Ascorbic Acid [Vitamin C] 500 mg PO DAILY@0800 01/07/14 Multivitamins,Ther W-Minerals 1 tab PO DAILY 01/07/14 [Multivitamin With Minerals] Ranitidine [Zantac] 150 mg PO DAILY PRN PRN 01/07/14 fluticasone 50 mcg/actuation nasal 1 - 2 spray INTRANASAL DAILY PRN 10/17/17 spray,suspension levothyroxine 50 mcg tablet 25 mcg PO DAILY 10/17/17 potassium chloride ER 20 mEq 20 meq PO QHS 10/17/17 tablet,extended release Diltiazem CD [Cardizem CD] 120 mg PO QODAY 01/09/18 Ergocalciferol [Vitamin D] 2,000 units PO DAILY 01/09/18 Fludrocortisone Acetate [Florinef] 0.1 mg PO QHS 01/09/18 Surgical History: Surgical History (Last Reviewed 10/17/17 @ 09:18 by Linda Patel) H/O hysterectomy with oophorectomy History of section Z98.891 History of lymph node biopsy Z98.890 Excision Rt. Axillary Lives: Spouse/ Significant Other Smoking Status: Never smoker Tobacco Use: Non-smoker Alcohol: None Drugs: None - *Family History Maternal History Items: - - negative for stroke Review of Systems Constitutional: Reports: - - complete ROS negative except as documented in HPI Patient Problems: Active and Suspected Problems (Last Updated 12/29/17 @ 08:35 by Linda Patel) TGA (transient global amnesia) (Acute) - Physical Exam General: Alert HEENT: Normocephalic Neck: Supple Lungs: Normal air movement Cardiovascular: Normal S1, Normal S2 Abdomen: Bowel Sounds Present Extremities: No cyanosis Neurological: Cranial nerves II-XII grossly intact, Deep Tendon Reflexes 2+/4 and Symmetrical, Neuro grossly intact, Motor Exam 5/5 strength throughout, Muscle tone normal, Sensory exam intact to light touch and pain, Coordination normal Psych/Mental Status: Normal Affect Vital Signs Temp Pulse Resp BP Pulse Ox 98.3 F 96 16 181/102 H 98 01/09/18 12:49 01/09/18 12:51 01/09/18 12:49 01/09/18 12:51 01/09/18 12:49 Oxygen Delivery Method Room Air Weight: 47 kg Body Mass Index (BMI) 20.9 Finger Stick Blood Glucose 89 Laboratory Tests Past 24 Hrs 01/09/18 01/09/18 01/09/18 09:20 09:20 09:20 WBC 3.8 L RBC 4.68 Hgb 14.4 Hct 42.2 MCV 90.2 MCH 30.8 MCHC 34.1 RDW 12.8 RDW Differential 41.9 Plt Count 238 MPV 10.1 Immature Gran % (Auto) 0.300 Neut % (Auto) 63.8 Lymph % (Auto) 26.1 [place] % (Auto) 8.4 Eos % (Auto) 1.1 Baso % (Auto) 0.3 Absolute Neuts (auto) 2.4 Absolute Lymphs (auto) 0.99 Total Counted Not Reportable PT 12.8 INR 1.0 APTT 24.6 Sodium 140 Potassium 3.3 L Chloride 101 Carbon Dioxide 28.0 Anion Gap 11 BUN 8 Creatinine 0.73 Estim Creat Clear Calc 36.20 Est GFR (MDRD) Af Amer 99 Est GFR (MDRD) Non-Af 82 BUN/Creatinine Ratio 10.9 Glucose 89 Calcium 8.8 Troponin I < 0.015 Urine Color Urine Clarity Urine pH Ur Specific [place] Urine Protein Urine Glucose (UA) Urine Ketones Urine Occult Blood Urine Nitrite Urine Bilirubin Urine Urobilinogen Ur Leukocyte Esterase Urine RBC Urine WBC Ur Squamous Epith Cells Urine Bacteria Urine Mucus 01/09/18 01/09/18 11:00 13:00 WBC RBC Hgb Hct MCV MCH MCHC RDW RDW Differential Plt Count MPV Immature Gran % (Auto) Neut % (Auto) Lymph % (Auto) [place] % (Auto) Eos % (Auto) Baso % (Auto) Absolute Neuts (auto) Absolute Lymphs (auto) Total Counted PT INR APTT Sodium Potassium Chloride Carbon Dioxide Anion Gap BUN Creatinine Estim Creat Clear Calc Est GFR (MDRD) Af Amer Est GFR (MDRD) Non-Af BUN/Creatinine Ratio Glucose Calcium Troponin I < 0.015 Urine Color Straw Urine Clarity Clear Urine pH 8.0 Ur Specific [place] 1.010 Urine Protein Negative Urine Glucose (UA) Normal Urine Ketones Negative Urine Occult Blood Negative Urine Nitrite Negative Urine Bilirubin Negative Urine Urobilinogen Normal Ur Leukocyte Esterase Negative Urine RBC 0 SEEN Urine WBC 0 SEEN Ur Squamous Epith Cells 0 SEEN Urine Bacteria 0 SEEN Urine Mucus 0 SEEN Assessment/Plan All Active Problems (Last Updated 12/29/17 @ 08:35 by Linda Patel) TGA (transient global amnesia) (Acute) The patient is a 77 year old CF with PMH HTN, HLD, vasovagal/neurocardiogenic syncope, hypothyroidism, GERD, fibromyalgia admitted with episode of confusion. Per patient she woke up normal this morning (01/09/18), then later had episode of confusion, disorientation per , where she was forgetful, did not remember things, was repeating herself, patient also felt dizzy and light headed, with numbness in both hands, along with generalized LAMAR, at present is at her baseline, denies any focal motor weakness, sensory loss, visual disturbances, or facial droop. CT head done on admission did not reveal anything acute. Had high BP in the ED on admission. Denies any witnessed seizures, lives with her , denies any falls, does drive and does not use cane or walker to ambulate. Per patient she is on fludrocortisone for syncope. Her last syncopal event was about 21/2 yrs ago. Impression Likely Transient global amnesia R/O stroke Plan -check MRI brain and CTA head/neck -Check EEG -On ASA and Lipitor -Better control of BP after neuroimaging and vessel study results, goal BP < 130/80 mmHg, will defer to primary team -Stroke risk factors discussed and stroke education provided. -Labs reviewed -PT/OT -GI/DVT prophylaxis -Fall precautions -Follow up with Neurology in 4-6 weeks as outpatient -Please call with questions if any -Thank you for allowing us to participate in patient's care and management. Code Visit Inpatient E&M: 82160 Init Hosp L3
[2018-01-09] MEDS: Acetaminophen 325 MG Tablet 650 MG PO (15:51)
--- NOTE | 2018-01-09 18:44 | NURSING ---
Reviewed and agreed on all charting with Kavon Johnson RN
[2018-01-09] MEDS: dilTIAZem CD 120 MG Capsule PO (21:19)
[2018-01-09] MEDS: Fludrocortisone Acetate 0.1 MG Tablet PO (21:19)
[2018-01-10] VITALS (8 sets, daily range): BP systolic 127–144; BP diastolic 75–83; PULSE 80–92; RESP 16–18; TEMP 36.5–36.9; O2SAT 94–99; BMI 20.9
[2018-01-10] MEDS: Levothyroxine 25 MCG TABLET PO (05:58)
[2018-01-10 07:50] LABS: Anion Gap 9 (5-15); BUN 9 mg/dL (7-18); BUN/Creat Ratio 11.7 RATIO (10-20); Calcium,Total 8.7 mg/dL (8.5-10.1); Chloride 102 mmol/L (98-107); Cholesterol 179 mg/dL (200); Creatinine, Serum 0.77 mg/dL (0.55-1.02); EST Glomerular Filtration Rate 78 mL/min (>60); Est Glom Filt Rate - Afr Amer 94 mL/min (>60); Estimated Creatinine Clearance 36.07 ml/min; Glucose 85 mg/dL (74-106); High Density Lipoprotein 79 mg/dL; Potassium 4.1 mmol/L (3.5-5.1); Sodium Level 137 mmol/L (136-145); Triglycerides 61 mg/dL; Very Low Density Lipoprotein 12 mg/dL (5-40)
--- NOTE | 2018-01-10 09:43 | DCINST_ITS ---
- Discharge Diagnoses Current Active Problems: Current Active and Chronic Problems (Last Updated 12/29/17 @ 08:35 by Linda Patel) TGA (transient global amnesia) (Acute) You will use the following diet at home:: No restrictions Allergies/Adverse Reactions: Allergies Penicillins Allergy (Verified 01/09/18 08:55) Rash Sulfa (Sulfonamide Antibiotics) Allergy (Verified 01/09/18 08:55) Rash FLOURIDE Allergy (Uncoded 01/09/18 08:55) Rash cough syrup Adverse Reaction (Uncoded 01/09/18 13:12) Upset Stomach Medications to take at Discharge Ascorbic Acid [Vitamin C] 500 mg PO DAILY@0800 01/07/14 Multivitamins,Ther W-Minerals [Multivitamin With Minerals] 1 tab PO DAILY 01/07/14 Ranitidine [Zantac] 150 mg PO DAILY PRN PRN 01/07/14 fluticasone 50 mcg/actuation nasal spray,suspension 1 - 2 spray INTRANASAL DAILY PRN 10/17/17 levothyroxine 50 mcg tablet 25 mcg PO DAILY 10/17/17 potassium chloride ER 20 mEq tablet,extended release 20 meq PO QHS 10/17/17 Diltiazem CD [Cardizem CD] 120 mg PO QODAY 01/09/18 Ergocalciferol [Vitamin D] 2,000 units PO DAILY 01/09/18 Fludrocortisone Acetate [Florinef] 0.1 mg PO QHS 01/09/18 Aspirin E.C. [Ecotrin] 81 mg PO DAILY@0800 #30 tab 01/10/18 The following prescriptions were given: Aspirin E.C. [Ecotrin] 81 mg PO DAILY@0800 #30 tab Primary Care Physician: Jose Abrams MD [Primary Care Provider] - Please follow up with your Primary Care Physician in: in 1-2 weeks Test Results: Test results from this visit will be discussed in further detail at your follow- up appointment, if applicable. Proposed Discharge Date: 01/10/18
--- NOTE | 2018-01-10 09:44 | PCM.DC.SUM ---
Discharge Date and Diagnosis - Problem List Patient Problems: Active and Suspected Problems (Last Updated 12/29/17 @ 08:35 by Linda Patel) TGA (transient global amnesia) (Acute) Date of Admission: 01/09/18 Date of Discharge: 01/10/18 - Primary Discharge Diagnosis Active and Suspected Problems (Last Updated 12/29/17 @ 08:35 by Linda Patel) TGA (transient global amnesia) (Acute) - Secondary Discharge Diagnosis Chronic Problems (Last Updated 12/29/17 @ 08:35 by Linda Patel) Essential hypertension (Chronic) Vasovagal syncope (Chronic) Fibromyalgia (Chronic) Hyperlipidemia (Chronic) Paroxysmal tachycardia (Chronic) Premature ventricular contraction (Chronic) Premature atrial contractions (Chronic) Hospital Course and Treatment Imaging Results: Clinical Impression(s) from Imaging Studies Brain CT 01/09/18 09:13 IMPRESSION: Chronic involutional changes of the brain. Electronically Signed: Elie Newman MD at 10:27 EST Tel [phone], Service support , Chest X-Ray 01/09/18 09:45 IMPRESSION: Hyperinflation. The lungs are clear. Electronically Signed: Elie Newman MD at 10:28 EST Tel [phone], Service support , Brain MRI 01/09/18 12:53 IMPRESSION: Involutional changes of the brain, as described above. Electronically Signed: Ap Chacko MD at 19:31 EST , Service support , Head CTA 01/09/18 12:53 IMPRESSION: Normal citizen [place] without a demonstrated aneurysm or hemodynamically significant stenosis. Electronically Signed: Ap Chacko MD at 16:53 EST , Service support , Neck CTA 01/09/18 12:53 IMPRESSION: Normal bilateral cervical carotid and vertebral arteries. Electronically Signed: Ap Chacko MD at 16:29 EST , Service support , Summary of Care Provided: Patient is a 77-year-old lady presented with forgetfulness 1. Transient global amnesia: Patient has been admitted to monitored bed where she is undergoing subsequent evaluation. Ordered MRI of the head as well as CT angiogram of the head and neck. Started patient on antiplatelet aspirin ordered echo as well as neurology consultation. Patient MRI as well as CTA of the head and neck came back unremarkable. Was seen in consultation by Dr. Sin with neurology who requested for an EEG to be performed. Patient's EEG did not show any evidence of epileptiform activity. Patient was therefore discharged home on aspirin 81 mg daily 2. History of recurrent vasovagal syncopal episodes; and on Florinef 3. History of cardiac arrhythmias including PVCs, PACs as well as PACs patient on Cardizem 4. Hypothyroidism-patient is on levothyroxine home dose continued 5. Dyslipidemia managed with only diet 6. Fibromyalgia; symptomatic treatment 7. DVT prophylaxis SC Lovenox Patient Problems: Active and Suspected Problems (Last Updated 12/29/17 @ 08:35 by Linda Patel) TGA (transient global amnesia) (Acute) - Physical Exam General: Oriented x3 HEENT: Atraumatic Neck: Supple Lungs: Clear to auscultation Cardiovascular: Regular rate, Regular Rhythm Extremities: No edema Neurological: Neuro grossly intact Vital Signs Temp Pulse Resp BP Pulse Ox 98.0 F 91 18 133/79 H 97 01/10/18 04:44 01/10/18 07:10 01/10/18 08:06 01/10/18 04:44 01/10/18 07:11 Oxygen Delivery Method Room Air Weight: 47 kg Body Mass Index (BMI) 20.9 Finger Stick Blood Glucose 89 Intake and Output for Last 24 Hours 01/08/18 01/09/18 01/10/18 23:59 23:59 23:59 Intake Total 450 / 450 150 / 150 Balance 450 / 450 150 / 150 Laboratory Tests Past 24 Hrs 01/09/18 01/09/18 01/09/18 09:20 11:00 13:00 Sodium 140 Potassium 3.3 L Chloride 101 Carbon Dioxide 28.0 Anion Gap 11 BUN 8 Creatinine 0.73 Estim Creat Clear Calc 36.20 Est GFR (MDRD) Af Amer 99 Est GFR (MDRD) Non-Af 82 BUN/Creatinine Ratio 10.9 Glucose 89 Calcium 8.8 Troponin I < 0.015 < 0.015 Triglycerides Cholesterol LDL Cholesterol VLDL Cholesterol HDL Cholesterol Urine Color Straw Urine Clarity Clear Urine pH 8.0 Ur Specific [place] 1.010 Urine Protein Negative Urine Glucose (UA) Normal Urine Ketones Negative Urine Occult Blood Negative Urine Nitrite Negative Urine Bilirubin Negative Urine Urobilinogen Normal Ur Leukocyte Esterase Negative Urine RBC 0 SEEN Urine WBC 0 SEEN Ur Squamous Epith Cells 0 SEEN Urine Bacteria 0 SEEN Urine Mucus 0 SEEN 01/09/18 01/10/18 16:10 06:42 Sodium 137 Potassium 4.1 Chloride 102 Carbon Dioxide 26.0 Anion Gap 9 BUN 9 Creatinine 0.77 Estim Creat Clear Calc 36.07 Est GFR (MDRD) Af Amer 94 Est GFR (MDRD) Non-Af 78 BUN/Creatinine Ratio 11.7 Glucose 85 Calcium 8.7 Troponin I < 0.015 Triglycerides 61 Cholesterol 179 LDL Cholesterol 88 VLDL Cholesterol 12 HDL Cholesterol 79 Urine Color Urine Clarity Urine pH Ur Specific [place] Urine Protein Urine Glucose (UA) Urine Ketones Urine Occult Blood Urine Nitrite Urine Bilirubin Urine Urobilinogen Ur Leukocyte Esterase Urine RBC Urine WBC Ur Squamous Epith Cells Urine Bacteria Urine Mucus Discharge Diet: No Restrictions Home Medications: Medications to take at Discharge Ascorbic Acid [Vitamin C] 500 mg PO DAILY@0800 01/07/14 Multivitamins,Ther W-Minerals [Multivitamin With Minerals] 1 tab PO DAILY 01/07/14 Ranitidine [Zantac] 150 mg PO DAILY PRN PRN 01/07/14 fluticasone 50 mcg/actuation nasal spray,suspension 1 - 2 spray INTRANASAL DAILY PRN 10/17/17 levothyroxine 50 mcg tablet 25 mcg PO DAILY 10/17/17 potassium chloride ER 20 mEq tablet,extended release 20 meq PO QHS 10/17/17 Diltiazem CD [Cardizem CD] 120 mg PO QODAY 01/09/18 Ergocalciferol [Vitamin D] 2,000 units PO DAILY 01/09/18 Fludrocortisone Acetate [Florinef] 0.1 mg PO QHS 01/09/18 Aspirin E.C. [Ecotrin] 81 mg PO DAILY@0800 #30 tab 01/10/18 Following Prescrptions Were Given to Patient: Aspirin E.C. [Ecotrin] 81 mg PO DAILY@0800 #30 tab Primary Care Physician: Jose Abrams MD [Primary Care Provider] - Please follow up with your Primary Care Physician in: in 1-2 weeks Disposition: Home Minutes spent on discharge:: 38 Patient Condition:: Stable Medical Necessity - Tobacco Use Smoking Status: Never smoker Tobacco Use: Non-smoker Meaningful Use Info Meaningful Use Diagnoses (Choose all that apply): None applicable Code Visit OBSV E&M: 52119 Observation care discharge
[2018-01-10] MEDS: Multivitamins,Ther W-Minerals Tablet 1 TABLET PO (09:49)
[2018-01-10] MEDS: Ascorbic Acid 500 MG Tablet PO (09:49)
[2018-01-10] MEDS: Aspirin 325 MG Tablet PO (09:50)
--- NOTE | 2018-01-10 12:12 | PN.NEURO_ITS ---
Subjective: No issues overnight. Denies any LAMAR at present - Physical Exam General: Alert HEENT: Normocephalic Neck: Supple Lungs: Normal air movement Cardiovascular: Normal S1, Normal S2 Abdomen: Bowel Sounds Present Extremities: No cyanosis Neurological: Cranial nerves II-XII grossly intact, Deep Tendon Reflexes 2+/4 and Symmetrical, Neuro grossly intact, Motor Exam 5/5 strength throughout, Muscle tone normal, Sensory exam intact to light touch and pain, Coordination normal Psych/Mental Status: Normal Affect Vital Signs Temp Pulse Resp BP Pulse Ox 97.7 F L 86 18 144/75 H 94 01/10/18 09:46 01/10/18 11:14 01/10/18 09:46 01/10/18 09:46 01/10/18 09:46 Oxygen Delivery Method Room Air Weight: 47 kg Body Mass Index (BMI) 20.9 Finger Stick Blood Glucose 89 Intake and Output for Last 24 Hours 01/08/18 01/09/18 01/10/18 23:59 23:59 23:59 Intake Total 450 / 450 150 / 150 Balance 450 / 450 150 / 150 Laboratory Tests Past 24 Hrs 01/09/18 01/09/18 01/10/18 13:00 16:10 06:42 Sodium 137 Potassium 4.1 Chloride 102 Carbon Dioxide 26.0 Anion Gap 9 BUN 9 Creatinine 0.77 Estim Creat Clear Calc 36.07 Est GFR (MDRD) Af Amer 94 Est GFR (MDRD) Non-Af 78 BUN/Creatinine Ratio 11.7 Glucose 85 Calcium 8.7 Troponin I < 0.015 < 0.015 Triglycerides 61 Cholesterol 179 LDL Cholesterol 88 VLDL Cholesterol 12 HDL Cholesterol 79 Medical Necessity - Tobacco Use Smoking Status: Never smoker Tobacco Use: Non-smoker Assessment/Plan All Active Problems (Last Updated 12/29/17 @ 08:35 by Linda Patel) TGA (transient global amnesia) (Acute) The patient is a 77 year old CF with PMH HTN, HLD, vasovagal/neurocardiogenic syncope, hypothyroidism, GERD, fibromyalgia admitted with episode of confusion. Per patient she woke up normal this morning (01/09/18), then later had episode o f confusion, disorientation per , where she was forgetful, did not remember things, was repeating herself, patient also felt dizzy and light headed, with numbness in both hands, along with generalized LAMAR, at present is at her baseline, denies any focal motor weakness, sensory loss, visual disturbances, or facial droop. CT head done on admission did not reveal anything acute. Had high BP in the ED on admission. Denies any witnessed seizures, lives with her , denies any falls, does drive and does not use cane or walker to ambulate. Per patient she is on fludrocortisone for syncope. Her last syncopal event was about 21/2 yrs ago. Impression Likely Transient global amnesia R/O stroke Plan -MRI brain- reviewed nothing acute and CTA head/neck- no hemodynamically sign ificant stenosis or occlusion -EEG-normal -Better control of BP, goal BP < 130/80 mmHg, will defer to primary team -Stroke risk factors discussed and stroke education provided. -Labs reviewed -PT/OT -GI/DVT prophylaxis -Fall precautions -Follow up with Neurology in 4-6 weeks as outpatient -Please call with questions if any -Thank you for allowing us to participate in patient's care and management.
--- NOTE | 2018-01-10 12:29 | EEG ---
- Electroencephalogram Date of service 01/10/2018 History EEG is being done in this 77 yr F to rule out seizures EEG Description: This is an 18 channel EEG with 10-20 lead placement system. Bipolar montages, Referential and Circumferential montages were reviewed. Photic stimulation and Hyperventilation were performed. The posterior dominant rhythm is 9 HZ synchronous, symmetric, reacting to eye opening and closing. Photo stimulation elicited normal driving response but no abnormal photoparoxysmal response, Hyperventilation did not elicit any abnormal photoparoxysmal response. Sleep was identified. There is no abnormal background slowing noted during the record. There was no epileptiform discharges or electrographic seizures noted during this recording. EEG Interpretation This is a normal awake and asleep EEG. There is no epileptiform discharges or electrographic seizures noted during the record.
== END 2018-01-10 12:40 | disposition home or self-care (01) ==
LOC: ED 09:25 → PCU 12:20
PROVIDERS: Admitting Provider Internal Medicine; Emergency Provider Emergency Medicine; Family Provider Family Medicine; PCP Family Medicine; Visit Provider Internal Medicine
DX: G45.4 Transient global amnesia (principal); R42 Dizziness and giddiness; R20.0 Anesthesia of skin; I44.0 Atrioventricular block, first degree; I10 Essential (primary) hypertension; M79.7 Fibromyalgia; E78.5 Hyperlipidemia, unspecified; I47.9 Paroxysmal tachycardia, unspecified; Z79.899 Other long term (current) drug therapy; K21.9 Gastro-esophageal reflux disease without esophagitis; E03.9 Hypothyroidism, unspecified; I49.3 Ventricular premature depolarization; R29.700 NIHSS score 0
CPT/HCPCS: 36415; 70450; 70496; 70498; 70551; 71045; 80048; 80061; 81001; 84484; 85025; 85610; 85730; 93005; 93306; 97161; 97165; 97802; 99218; 99283; Q9967; A4216; G0378

== ENCOUNTER → 2018-01-17 11:53 | Outpatient (CLI) | payer MEDICARE, SELFPAY ==
[2018-01-10 01:49] VITALS: BMI 20.9
[2018-01-17 15:53] LABS: Hematocrit 40.9 % (37-47); Hemoglobin 13.5 g/dl (12.0-15.0); Mean Corpuscular Hgb 30.5 pg (27.0-32.0); Mean Corpuscular Volume 92.3 fL (81-99); Mean Platelet Vol. 10.8 fl (6.2-12.0); Platelet Count 247 K/mm3 (150-450); Red Blood Count 4.43 M/mm3 (4.2-5.4); White Blood Count 4.5 K/mm3 (4.4-11.0)
[2018-01-17 16:00] LABS: Scan Indicated on CBC? Y/N NO
[2018-01-17 16:15] LABS: Erythrocyte Sedimentation Rate < 1 mm/hr (0-30)
[2018-01-17 16:16] LABS: Vitamin B12 620 pg/mL (211-911); Vitamin D,25 Hydroxy 39.8 ng/mL (29.95-100.01)
[2018-01-17 16:56] LABS: Anion Gap 7 (5-15); BUN 16 mg/dL (7-18); Chloride 103 mmol/L (98-107); Creatinine, Serum 0.64 mg/dL (0.55-1.02); EST Glomerular Filtration Rate 96 mL/min (>60); Est Glom Filt Rate - Afr Amer 116 mL/min (>60); Glucose 76 mg/dL (74-106); Magnesium 2.2 mg/dL (1.6-2.6); Potassium 3.7 mmol/L (3.5-5.1); Sodium Level 138 mmol/L (136-145); Thyroid Stim Hormone (TSH) 2.86 uIU/mL (0.358-3.74)
--- OUTSIDE RECORDS SUMMARY | 2018-03-01 03:35 | XMS RPT_ITS ---
:1940 Author Organization OHIP Support Name Relationship Address Phone JULIET TOM Unavailable . + [place] [address] MODER LIZETH Unavailable [address] + [place] [address] R Unavailable Unavailable Unavailable JULIET TOM Unavailable Unavailable + [place] [address] MODER, LIZETH Unavailable [address] + [place] [address] R Unavailable Unavailable Unavailable TOMJULIET BARRETO Unavailable Unavailable + [place] [address] MODER, LIZETH Unavailable [address] + [place] [address] R Unavailable Unavailable Unavailable JULIET TOM Unavailable Unavailable + [place] [address] MODER, LIZETH Unavailable [address] + [place] [address] R Unavailable Unavailable Unavailable JULIET TOM Unavailable 1 + [place] [address] MODER, LIZETH Unavailable [address] + [place] [address] R Unavailable Unavailable Unavailable TOMJULIET BARRETO Unavailable Unavailable + [place] [address] MODER, LIZETH Unavailable [address] + [place] [address] R Unavailable Unavailable Unavailable JULIET TOM Unavailable 1 + [place] [address] MODER, LIZETH Unavailable [address] + [place] [address] R Unavailable Unavailable Unavailable TOMJULIET BARRETO Unavailable 1 + [place] [address] MODER, LIZETH Unavailable [address] + [place] [address] R Unavailable Unavailable Unavailable JULIET TOM Unavailable Unavailable + [place] [address] MODER, LIZETH Unavailable [address] + [place] [address] R Unavailable Unavailable Unavailable JULIET TOM Unavailable Unavailable + [place] [address] MODER, LIZETH Unavailable [address] + [place] [address] R Unavailable Unavailable Unavailable JULIET TOM Unavailable Unavailable + [place] [address] MODER, LIZETH Unavailable [address] [phone] [place] [address] R Unavailable Unavailable Unavailable JULIET TOM Unavailable Unavailable + [place] [address] MODER, LIZETH Unavailable [address] [phone] [place] [address] R Unavailable Unavailable Unavailable JULIET TOM Unavailable Unavailable + [place] [address] MODER, LIZETH Unavailable [address] [phone] [place] [address] R Unavailable Unavailable Unavailable JULIET TOM Unavailable Unavailable + [place] [address] MODER, LIZETH Unavailable [address] [phone] [place] [address] R Unavailable Unavailable Unavailable JULIET TOM Unavailable [address] + [place] [address] MODER, LIZETH Unavailable [address] [phone] [place] [address] R Unavailable Unavailable Unavailable JULIET TOM Unavailable [address] + [place] [address] MODER, LIZETH Unavailable [address] + [place] [address] R Unavailable Unavailable Unavailable Care Team Providers Name Role Phone Keyur Canseco Attending Unavailable Elier Gordon Referring Unavailable Linda Trujillo Attending Unavailable Tereso Abrams Referring Unavailable Tereso Abrams Attending Unavailable Tereso Abrams Primary Care Unavailable Tereso Abrams Attending Unavailable Tereso Abrams Referring Unavailable Ranney, Christopher Primary Care Unavailable Ranney, Christopher Attending Unavailable Ranney, Christopher Attending Unavailable Ranney, Christopher Primary Care Unavailable Ranney, Christopher Attending Unavailable Ranney, Christopher Primary Care Unavailable Ranney, Christopher Attending Unavailable Ranney, Christopher Primary Care Unavailable Ranney, Christopher Attending Unavailable Ranney, Christopher Primary Care Unavailable Ranney, Christopher Referring Unavailable Linda Patel Attending Unavailable Max Ferrer Attending Unavailable Ranney, Christopher Referring Unavailable Ranney, Christopher Primary Care Unavailable Ranney, Christopher Attending Unavailable Ranney, Christopher Primary Care Unavailable Ranney, Christopher Primary Care Unavailable Elier Gordon Admitting Unavailable Kitpam, Elier Attending Unavailable Merrick, Tal S. Consulting Unavailable Elier Gordon Admitting Unavailable Kitolgae, Elier Attending Unavailable Ranney, Christopher Primary Care Unavailable Merrick, Tal S. Consulting Unavailable Elier Gordon Consulting Unavailable Elier Gordon Admitting Unavailable Elier Gordon Attending Unavailable Ranney, Christopher Primary Care Unavailable Merrick, Tal S. Consulting Unavailable Elier Gordon Consulting Unavailable Ranney, Christopher Attending Unavailable Ranney, Christopher Primary Care Unavailable PROBLEMS PROBLEMS DATE TYPE CONDITION / CODE ATTENDING STATUS SOURCE 01/18/2018 Unknown 785.1 - Ranangel, Active [place] Palpitations / [facility] 785.1(ICD-9) Hospital Repository 01/18/2018 Unknown R00.2 - Ranney, Active [facility] Palpitations / [facility] R00.2(ICD-10) Hospital Repository 01/18/2018 Unknown 437.7 - Transient Ranney, Active [facility] global amnesia / [facility] 437.7(ICD-9) Hospital Repository 01/18/2018 Unknown G45.4 - Transient Ranney, Active [place] global amnesia / [facility] G45.4(ICD-10) Hospital Repository 09/08/2017 Unknown M50.30 - Other Ranney, Active [facility] cervical disc [facility] degeneration, Hospital unspecified Repository cervical region / M50.30(ICD-10) 05/24/2017 Unknown Z12.31 - Encounter Ranangel, Active [place] for screening [facility] mammogram for Hospital malignant neoplasm Repository of breast / Z12.31(ICD-10) 05/24/2017 Unknown Z78.0 - Aliza, Active [facility] Asymptomatic [facility] state / Hospital Z78.0(ICD-10) Repository PROCEDURES PROCEDURES No Procedure Records FoundRESULTS RESULTS CARDIOLOGY VISIT Observed: 02/06/2018 Status: F Source: [place] REPORT 11:35 AM [facility] REPOSITORY [facility] [address] [place] [address] OFFICE VISIT Date of Service: 02/02/18 MR#: [id number] Acct: [id number] Name: DEANA LYNN Rep #: [id number] : 1940 Provider: Linda Trujillo Age/Sex: 77/F Location: [facility] Status: Signed HPI HPI Chief Complaint: Dizziness Details: DEANA LYNN, is a 77 F who presents to the office today for an urgent appointment for high blood pressure. She does have a history of hypertension, vasovagal syncope. Pt sts that 3 weeks ago she had an episode where she just did not feel good. She noted that she had amensia and high blood pressure readings. She was admitted the the hospital and had a work up done. She went to see her PCP following this. He had obtained a HM which was negative. She has noted that her BP readings have been high and higher HR readings. Intake Vital Signs02/02/18 Body Mass Index (BMI) 20.9 02/02/18 Height 4 ft 11 in 02/02/18 Weight: 105 lb 02/02/18 Body Mass Index (BMI) 21.2 02/02/18 Blood Pressure 148/76 H Intake Visit Reasons: s/p PCU 01/10/18, htn, palpitations Emts Required: No Accompanied by: None Is patient in pain?: No Allergies Penicillins Allergy (Verified 02/02/18 11:09) Rash Sulfa (Sulfonamide Antibiotics) Allergy (Verified 02/02/18 11:09) Rash FLOURIDE Allergy (Uncoded 01/09/18 08:55) Rash cough syrup Adverse Reaction (Uncoded 01/09/18 13:12) Upset Stomach Medications Ascorbic Acid [Vitamin C] 500 mg PO DAILY@0800 01/07/14 [History Confirmed 02/02/18] Multivitamins,Ther W-Minerals [Multivitamin With Minerals] 1 tab PO DAILY 01/07/14 [History Confirmed 02/02/18] Ranitidine [Zantac] 150 mg PO DAILY PRN PRN 01/07/14 [History Confirmed 02/02/18] fluticasone 50 mcg/actuation nasal spray,suspension 1 - 2 spray INTRANASAL DAILY PRN 10/17/17 [History Confirmed 02/02/18] levothyroxine 50 mcg tablet 25 mcg PO DAILY 10/17/17 [History Confirmed 02/02/18] potassium chloride ER 20 mEq tablet,extended release 20 meq PO QHS 10/17/17 [History Confirmed 02/02/18] Diltiazem CD [Cardizem CD] 120 mg PO QODAY 01/09/18 [History Confirmed 02/02/18] Aspirin E.C. [Ecotrin] 81 mg PO DAILY@0800 #30 tab 01/10/18 [Rx Confirmed 02/02/18] apple cider vinegar 300 mg tablet mg PO tab 02/02/18 [History Confirmed 02/02/18] cholecalciferol (vitamin D3) 2,000 unit capsule 2,000 unit PO DAILY 02/02/18 [History Confirmed 02/02/18] fludrocortisone 0.1 mg tablet 0.05 mg PO QHS tab 02/02/18 [History Confirmed 02/02/18] Ejection fraction %: 65 to 70 PFSH Medical History Essential hypertension (Chronic) Vasovagal syncope (Chronic) Fibromyalgia (Chronic) Hyperlipidemia (Chronic) Paroxysmal tachycardia (Chronic) Premature ventricular contraction (Chronic) Premature atrial contractions (Chronic) GERD (gastroesophageal reflux disease) (Acute) Hypertension (Inactive) Surgical History H/O hysterectomy with oophorectomy (Resolved) History of section (Resolved) History of lymph node biopsy (Resolved) Family History Father , age 59 Myocardial infarction CVA (cerebral vascular accident) Mother Hypertension Social History Smoking Status: Never smoker alcohol intake: current alcohol intake frequency: a few times a week Alcohol type: beer substance use type: does not use caffeine: Yes Type: coffee Number of servings: 2 ROS Const Const: Negative for weakness, fatigue, fever(s) or headache(s) Eyes Eyes: Negative for blind spots, loss of peripheral vision or transient loss of vision ENT ENT: Negative for headache(s), dizziness, tinnitus or Nosebleed/epistaxis Cardio Chest Pain: No Palpitations: No Edema: None Muscle aches with walking: None Resp Respiratory: Negative for SOB with activity, SOB at rest, SOB orthopnea\SOB lying down or Cough GI GI: Negative nausea, vomiting, heartburn or vomiting blood/hematemesis : Negative for hematuria Musc Musc: Negative for muscle aches/ myalgia Neuro Neuro: Negative for weakness, headache(s), dizziness, near syncope, syncope, lightheadedness or orthostatic symptoms Stef Hematologic/Lymphatic: Negative for easy bleeding Endo Endo: Negative for fatigue Cardiology Exam Const Appearance: cooperative, healthy appearing, comfortable, no acute distress, well developed and well groomed Nutritional Appearance: thin Orientation: alert, awake and oriented x3 Head Head: normal to inspection, normocephalic and atraumatic Ears: hearing grossly normal bilaterally Nose: external nose normal Face and Sinus: face symmetric Mouth: oral mucosae normal Teeth and gingiva: fair dentition Eyes Eyelids: eyelids normal EOM: EOM intact bilaterally Neck Neck: normal visual inspection Carotids: normal carotid upstroke Chest Chest inspection: symmetric chest movement and normal inspection of the chest Auscultation: Bilateral: Clear to Auscultation Cardio Palpation: normal PMI Rhythm: regular rhythm Heart sounds: S1 normal and S2 normal GI GI: normal to inspection, bowel sounds present and soft Neuro General: alert, awake, oriented x3, moves all extremities, no focal motor deficits, gait normal and no focal sensory deficit Skin Skin: no rashes or lesions noted Extremities Pulses: Normal: Right Radial Pulse, Left Radial Pulse Lower Extremity Edema: None: Bilateral Psych Psychological: normal affect Assessment AND Plan 1. Vasovagal syncope R55 Plan Patient has not had any further episodes of vasovagal syncope. She does keep herself adequately hydrated. She does have a high salt intake in her diet. With her elevated blood pressure readings we will have her decrease her fludrocortisone. May consider discontinuing this altogether however we will wean her off slowly. Patient Instructions Decrease your fludrocortisone to one have tablet daily 2. Essential hypertension I10 Plan Patient has been having elevated blood pressure readings, this has been consistent over the last several weeks. We will have her decrease her fludrocortisone to 1/2 pill daily. She will monitor her blood pressure readings closely. She will continue with her current dose of diltiazem. Plan Detail Other Medications Changed: Additional Comments Thank you for allowing us to participate in patient's plan of care, if you have any questions please do not hesitate to call. This note was generated using a voice recognition system and there may be incorrect words, spelling or punctuation errors that were not noted when reviewing the office note prior to saving. Follow Up 6 Weeks (MMM) 02/02/18 (Please obtain HM report from PCP) Coding Level of Care Code Off vis,est,level 4 Diagnoses Vasovagal syncope R55 Essential hypertension I10 Coding Level of Care Code Off vis,est,level 4 Diagnoses Vasovagal syncope R55 Essential hypertension I10 02/06/18 1135 <Electronically signed by Linda QUIROGA> Date Linda QUIROGA [facility] Signature: Date (if applicable) CC: Tereso Abrams MD 12 LEAD ELECTROCARDIOGRAM Observed: 01/20/2018 Status: F Source: [place] 9:11 AM [facility] REPOSITORY [facility] Cardiovascular Services [address] [place] [address] 12 Lead EKG 01/09/18 0930 MR#: [id number] Acct: [id number] Name: DEANA LYNN Rep #: [id number] : 1940 77 From: Michael Varela MD Attending Dr: Elier Gordon MD Status: DIS JAVIER Ordering Dr: Flaquito Bergman MD Date: 01/09/18 Location: [facility] Sex: F C Admitted: 01/09/18 Test Reason : DIZZINESS Blood Pressure : / mmHG Vent. Rate : 085 BPM Atrial Rate : 085 BPM P-R Int : 202 ms QRS Dur : 072 ms QT Int : 380 ms P-R-T Axes : 076 026 060 degrees QTc Int : 452 ms Normal sinus rhythm Possible Left atrial enlargement Nonspecific ST and T wave abnormality Abnormal ECG Confirmed by JANA COOPER, MICHAEL ([id number]), editor publications KRISTINE OSBORNE ([id number]) on 01/11/2018 11:18:37 AM Referred By: JORGE Confirmed By:MICHAEL VARELA MD 01/11/188 Date Michael Varela MD CC: Tereso Abrams MD; Elier Gordon MD; Flaquito Bergman Signed CBC-COMPLETE BLOOD CNT Collected: 01/17/2018 Status: F Source: [place] NO DIFF 11:54 AM [facility] REPOSITORY TYPE CODE TESTS RESULT OUT OF RANGE REFERENCE UNITS LAB L100.1000 4.4-11.0 K/mm3 Normal WBC 4.5 LAB L100.1200 4.2-5.4 M/mm3 Normal RBC 4.43 LAB L100.1300 12.0-15.0 g/dl Normal HGB 13.5 LAB L100.1400 37-47 % Normal HCT 40.9 LAB L100.1500 81-99 fL Normal MCV 92.3 LAB L100.1600 27.0-32.0 pg Normal MCH 30.5 LAB L100.1700 32-36 g/gl Normal MCHC 33.0 LAB L100.1810 11.6-14.6 % Normal RDW CV 13.0 LAB L100.1820 35.1-43.9 fl Normal RDW SD 43.0 LAB L100.1900 150-450 K/mm3 Normal PLT 247 LAB L100.2000 6.2-12.0 fl Normal MPV 10.8 Performed By: #### L100.0500, L101.9900, L503.0105, L506.1000, L500.2500, L501.5200, L501.9520 #### [facility] [address] [place], [address] ERYTHROCYTE SED RATE Collected: 01/17/2018 Status: F Source: [place] 11:54 AM [facility] REPOSITORY TYPE CODE TESTS RESULT OUT OF RANGE REFERENCE UNITS LAB L102.0000 0-30 mm/hr Normal SED RATE < 1 Performed By: #### L100.0500, L101.9900, L503.0105, L506.1000, L500.2500, L501.5200, L501.9520 #### [facility] [address] [place], [address] VITAMIN B12 Collected: 01/17/2018 Status: F Source: [place] 11:54 AM [facility] REPOSITORY TYPE CODE TESTS RESULT OUT OF RANGE REFERENCE UNITS LAB L503.0105 211-911 pg/mL Normal Vitamin B12 620 Performed By: #### L100.0500, L101.9900, L503.0105, L506.1000, L500.2500, L501.5200, L501.9520 #### [facility] [address] [place], [address] VITAMIN D,25 HYDROXY Collected: 01/17/2018 Status: F Source: [place] 11:54 AM [facility] REPOSITORY TYPE CODE TESTS RESULT OUT OF RANGE REFERENCE UNITS LAB L506.1000 29.95-100.01 ng/mL Normal Vitamin D 39.8 25-OH Result Comment: Vitamin D 25(OH) Status Range Deficiency <20 ng/mL (50nmol/L) Insuffciency 20 - 30 ng/mL (50 - 75 nmol/L) Sufficiency 30 - 100 ng/mL (75 - 250 nmol/L) Toxicity >100 ng/mL (>250 nmol/L) Performed By: #### L100.0500, L101.9900, L503.0105, L506.1000, L500.2500, L501.5200, L501.9520 #### [facility] [address] [place], [address] BASIC METABOLIC Collected: 01/17/2018 Status: F Source: [place] PROFILE (BMP) 11:54 AM [facility] REPOSITORY TYPE CODE TESTS RESULT OUT OF RANGE REFERENCE UNITS LAB L501.0100 74-106 mg/dL Normal GLU 76 Result Comment: Please note revised GLUCOSE reference range effective 2017. LAB L501.1000 7-18 mg/dL Normal BUN 16 LAB L501.1100 0.55-1.02 mg/dL Normal CREAT,SERUM 0.64 Result Comment: The validity of the calculated GFR AND GFRAA in patients over 70 years has not been determined. Clinical correlation is essential. LAB L501.1110 >60 mL/min Normal EST GFR 96 Result Comment: Non- GFR Calc LAB L501.1115 >60 mL/min Normal EST GFR - AA 116 Result Comment: GFR Calc LAB L501.1300 10-20 RATIO High BUN/CRE 25.0 LAB L501.2200 8.5-10.1 mg/dL CA Normal 9.0 LAB L501.5300 136-145 mmol/L NA Normal 138 LAB L501.5600 3.5-5.1 mmol/L K Normal 3.7 LAB L501.5900 98-107 mmol/L CL Normal 103 LAB L501.6100 21.0-32.0 mmol/L Normal CO2 28.0 LAB L501.6200 5-15 Normal GAP 7 Performed By: #### L100.0500, L101.9900, L503.0105, L506.1000, L500.2500, L501.5200, L501.9520 #### [facility] [address] [facility] [place], [place], [id number] MAGNESIUM Collected: 01/17/2018 Status: F Source: [place] 11:54 AM [facility] REPOSITORY TYPE CODE TESTS RESULT OUT OF RANGE REFERENCE UNITS LAB L501.5200 1.6-2.6 mg/dL Normal MG 2.2 Performed By: #### L100.0500, L101.9900, L503.0105, L506.1000, L500.2500, L501.5200, L501.9520 #### [facility] [address] [facility] [place], [place], [id number] THYROID STIM HORMONE Collected: 01/17/2018 Status: F Source: [place] (TSH) 11:54 AM [facility] REPOSITORY TYPE CODE TESTS RESULT OUT OF RANGE REFERENCE UNITS LAB L501.9520 0.358-3.74 uIU/mL Normal TSH 2.86 Performed By: #### L100.0500, L101.9900, L503.0105, L506.1000, L500.2500, L501.5200, L501.9520 #### [facility] [address] [place], [address] ELECTROENCEPHALOGRAM Observed: 01/11/2018 Status: F Source: [place] 12:23 PM [facility] REPOSITORY [facility] Pulmonary Services/Neurology [address] [place] [address] MR#: [id number] Acct: [id number] Name: DEANA LYNN Rep #: [id number] : 1940 77 From: Tal Sin MD Referring Dr: Evan COOPER,Elier Status: DIS JAVIER Ordering Dr: Date: Location: [place] [id number] Sex: F C - Electroencephalogram Date of service 01/10/2018 History EEG is being done in this 77 yr F to rule out seizures EEG Description: This is an 18 channel EEG with 10-20 lead placement system. Bipolar montages, Referential and Circumferential montages were reviewed. Photic stimulation and Hyperventilation were performed. The posterior dominant rhythm is 9 HZ synchronous, symmetric, reacting to eye opening and closing. Photo stimulation elicited normal driving response but no abnormal photoparoxysmal response, Hyperventilation did not elicit any abnormal photoparoxysmal response. Sleep was identified. There is no abnormal background slowing noted during the record. There was no epileptiform discharges or electrographic seizures noted during this recording. EEG Interpretation This is a normal awake and asleep EEG. There is no epileptiform discharges or electrographic seizures noted during the record. 01/11/18 1223 <Electronically signed by Tal Sin MD> Date Tal Sin MD CC: Sammy Sin MD; Tereso Abrams MD; Elier Gordon MD Date Dictated: 01/10/18 1229 Date Transcribed: 01/10/181228 Diesel Crane Operator: WAQAS Signed CONSULTATION Observed: 01/11/2018 Status: F Source: [place] 12:23 PM [facility] REPOSITORY [facility] Medical Records Department [address] [place] [address] Consultation 01/09/18 1421 MR#: [id number] Acct: [id number] Name: DEANA LYNN Rep #: [id number] : 1940 77 From: Tal Sin MD PCP: Tereso Abrams MD Status: DIS JAVIER Y Location: [place] [address] Problem List (1) TGA (transient global amnesia) Status: Acute Reason for Consult Date of Consultation: 01/09/18 Reason for Consultation: TGA History of Present Illness: The patient is a 77 year old CF with PMH HTN, HLD, vasovagal/neurocardiogenic syncope, hypothyroidism, GERD, fibromyalgia admitted with episode of confusion. Per patient she woke up normal this morning (01/09/18), then later had episode of confusion, disorientation per , where she was forgetful, did not remember things, was repeating herself, patient also felt dizzy and light headed, with numbness in both hands, along with generalized LAMAR, at present is at her baseline, denies any focal motor weakness, sensory loss, visual disturbances, or facial droop. CT head done on admission did not reveal anything acute. Had high BP in the ED on admission. Denies any witnessed seizures, lives with her , denies any falls, does drive and does not use cane or walker to ambulate. [] Past Medical History Past Medical History (Chronic Problems): Chronic Problems (Last Updated 12/29/17 @ 08:35 by Linda Patel) Essential hypertension (Chronic) Vasovagal syncope (Chronic) Fibromyalgia (Chronic) Hyperlipidemia (Chronic) Paroxysmal tachycardia (Chronic) Premature ventricular contraction (Chronic) Premature atrial contractions (Chronic) Medical History: Medical History (Last Updated 12/29/17 @ 08:35 by Linda Patel) Essential hypertension (Chronic) I10 Vasovagal syncope (Chronic) R55 Fibromyalgia (Chronic) M79.7 Hyperlipidemia (Chronic) E78.5 Paroxysmal tachycardia (Chronic) I47.9 Premature ventricular contraction (Chronic) I49.3 Premature atrial contractions (Chronic) I49.1 GERD (gastroesophageal reflux disease) K21.9 Hypertension (Inactive) I10 Allergies Penicillins Allergy (Verified 01/09/18 08:55) Rash Sulfa (Sulfonamide Antibiotics) Allergy (Verified 01/09/18 08:55) Rash FLOURIDE Allergy (Uncoded 01/09/18 08:55) Rash cough syrup Adverse Reaction (Uncoded 01/09/18 13:12) Upset Stomach Home Medications: Ambulatory Orders Medication Instructions Recorded Ascorbic Acid [Vitamin C] 500 mg PO DAILY@0800 01/07/14 Surgical History: Surgical History (Last Reviewed 10/17/17 @ 09:18 by Linda Patel) H/O hysterectomy with oophorectomy History of section Z98.891 History of lymph node biopsy Z98.890 Excision Rt. Axillary Lives: Spouse/ Significant Other Smoking Status: Never smoker Tobacco Use: Non-smoker Alcohol: None Drugs: None - *Family History Maternal History Items: - - negative for stroke Review of Systems Constitutional: Reports: - - complete ROS negative except as documented in HPI Patient Problems: Active and Suspected Problems (Last Updated 12/29/17 @ 08:35 by Linda Patel) TGA (transient global amnesia) (Acute) - Physical Exam General: Alert HEENT: Normocephalic Neck: Supple Lungs: Normal air movement Cardiovascular: Normal S1, Normal S2 Abdomen: Bowel Sounds Present Extremities: No cyanosis Neurological: Cranial nerves II-XII grossly intact, Deep Tendon Reflexes 2+/4 and Symmetrical, Neuro grossly intact, Motor Exam 5/5 strength throughout, Muscle tone normal, Sensory exam intact to light touch and pain, Coordination normal Psych/Mental Status: Normal Affect Vital Signs Temp Pulse Resp BP Pulse Ox 98.3 F 96 16 181/102 H 98 01/09/18 12:49 01/09/18 12:51 01/09/18 12:49 01/09/18 12:51 01/09/18 12:49 Oxygen Delivery Method Room Air Weight: 47 kg Body Mass Index (BMI) 20.9 Finger Stick Blood Glucose 89 Laboratory Tests Past 24 Hrs WBC 3.8 L RBC 4.68 Hgb 14.4 Hct 42.2 MCV 90.2 MCH 30.8 MCHC 34.1 RDW 12.8 RDW Differential 41.9 WBC RBC Hgb Assessment/Plan All Active Problems (Last Updated 12/29/17 @ 08:35 by Linda Patel) TGA (transient global amnesia) (Acute) The patient is a 77 year old CF with PMH HTN, HLD, vasovagal/neurocardiogenic syncope, hypothyroidism, GERD, fibromyalgia admitted with episode of confusion. Per patient she woke up normal this morning (01/09/18), then later had episode of confusion, disorientation per , where she was forgetful, did not remember things, was repeating herself, patient also felt dizzy and light headed, with numbness in both hands, along with generalized LAMAR, at present is at her baseline, denies any focal motor weakness, sensory loss, visual disturbances, or facial droop. CT head done on admission did not reveal anything acute. Had high BP in the ED on admission. Denies any witnessed seizures, lives with her , denies any falls, does drive and does not use cane or walker to ambulate. Per patient she is on fludrocortisone for syncope. Her last syncopal event was about 21/2 yrs ago. Impression Likely Transient global amnesia R/O stroke Plan -check MRI brain and CTA head/neck -Check EEG -On ASA and Lipitor -Better control of BP after neuroimaging and vessel study results, goal BP < 130/80 mmHg, will defer to primary team -Stroke risk factors discussed and stroke education provided. -Labs reviewed -PT/OT -GI/DVT prophylaxis -Fall precautions -Follow up with Neurology in 4-6 weeks as outpatient -Please call with questions if any -Thank you for allowing us to participate in patient's care and management. Code Visit Inpatient E AND M: [id number] Init Hosp L3 01/11/18 1223 <Electronically signed by Tal Sin MD> Date Tal Sin MD Cosigner Signature (if applicable): Date CC: Sammy Sin MD; Tereso Abrams MD Signed DISCHARGE SUMMARY Observed: 01/10/2018 Status: F Source: [place] 12:41 PM [facility] REPOSITORY [facility] Medical Records Department [address] [place] [address] Discharge Summary 01/10/18 0944 MR#: [id number] Acct: [id number] Name: DEANA LYNN Rep #: [id number] : 1940 77 From: Elier Gordon MD PCP: Tereso Abrams MD Status: ADM JAVIER Y Location: [place] [address] Discharge Date and Diagnosis - Problem List Patient Problems: Active and Suspected Problems (Last Updated 12/29/17 @ 08:35 by Linda Patel) TGA (transient global amnesia) (Acute) Date of Admission: 01/09/18 Date of Discharge: 01/10/18 - Primary Discharge Diagnosis Active and Suspected Problems (Last Updated 12/29/17 @ 08:35 by Linda Patel) TGA (transient global amnesia) (Acute) - Secondary Discharge Diagnosis Chronic Problems (Last Updated 12/29/17 @ 08:35 by Linda Patel) Essential hypertension (Chronic) Vasovagal syncope (Chronic) Fibromyalgia (Chronic) Hyperlipidemia (Chronic) Paroxysmal tachycardia (Chronic) Premature ventricular contraction (Chronic) Premature atrial contractions (Chronic) Hospital Course and Treatment Imaging Results: Clinical Impression(s) from Imaging Studies Brain CT 01/09/18 09:13 IMPRESSION: Chronic involutional changes of the brain. Electronically Signed: Elie Newman MD at 10:27 EST Tel [phone], Service support , Chest X-Ray 01/09/18 09:45 IMPRESSION: Hyperinflation. The lungs are clear. Electronically Signed: Elie Newman MD at 10:28 EST Tel [phone], Service support , Brain MRI 01/09/18 12:53 IMPRESSION: Involutional changes of the brain, as described above. Electronically Signed: Ap Chacko MD at 19:31 EST , Service support , Head CTA 01/09/18 12:53 IMPRESSION: Normal [place] of [place] without a demonstrated aneurysm or hemodynamically significant stenosis. Electronically Signed: Ap Chacko MD at 16:53 EST , Service support , Neck CTA 01/09/18 12:53 IMPRESSION: Normal bilateral cervical carotid and vertebral arteries. Electronically Signed: Ap Chacko MD at 16:29 EST , Service support , Summary of Care Provided: Patient is a 77-year-old lady presented with forgetfulness 1. Transient global amnesia: Patient has been admitted to monitored bed where she is undergoing subsequent evaluation. Ordered MRI of the head as well as CT angiogram of the head and neck. Started patient on antiplatelet aspirin ordered echo as well as neurology consultation. Patient MRI as well as CTA of the head and neck came back unremarkable. Was seen in consultation by Dr. Sin with neurology who requested for an EEG to be performed. Patient's EEG did not show any evidence of epileptiform activity. Patient was therefore discharged home on aspirin 81 mg daily 2. History of recurrent vasovagal syncopal episodes; and on Florinef 3. History of cardiac arrhythmias including PVCs, PACs as well as PACs patient on Cardizem 4. Hypothyroidism-patient is on levothyroxine home dose continued 5. Dyslipidemia managed with only diet 6. Fibromyalgia; symptomatic treatment 7. DVT prophylaxis SC Lovenox Patient Problems: Active and Suspected Problems (Last Updated 12/29/17 @ 08:35 by Linda Patel) TGA (transient global amnesia) (Acute) - Physical Exam General: Oriented x3 HEENT: Atraumatic Neck: Supple Lungs: Clear to auscultation Cardiovascular: Regular rate, Regular Rhythm Extremities: No edema Neurological: Neuro grossly intact Vital Signs Temp Pulse Resp BP Pulse Ox 98.0 F 91 18 133/79 H 97 01/10/18 04:44 01/10/18 07:10 01/10/18 08:06 01/10/18 04:44 01/10/18 07:11 Oxygen Delivery Method Room Air Weight: 47 kg Body Mass Index (BMI) 20.9 Finger Stick Blood Glucose 89 Intake and Output for Last 24 Hours Intake Total 450 / 450 150 / 150 Balance 450 / 450 150 / 150 Laboratory Tests Past 24 Hrs Sodium 140 Potassium 3.3 L Chloride 101 Carbon Dioxide 28.0 Anion Gap 11 Sodium 137 Potassium 4.1 Chloride 102 Carbon Dioxide 26.0 Anion Gap 9 BUN 9 Creatinine 0.77 Estim Creat Clear Calc 36.07 Discharge Diet: No Restrictions Home Medications: Medications to take at Discharge Ascorbic Acid [Vitamin C] 500 mg PO DAILY@0800 01/07/14 Multivitamins,Ther W-Minerals [Multivitamin With Minerals] 1 tab PO DAILY 01/07/14 Ranitidine [Zantac] 150 mg PO DAILY PRN PRN 01/07/14 fluticasone 50 mcg/actuation nasal spray,suspension 1 - 2 spray INTRANASAL DAILY PRN 10/17/17 levothyroxine 50 mcg tablet 25 mcg PO DAILY 10/17/17 potassium chloride ER 20 mEq tablet,extended release 20 meq PO QHS 10/17/17 Diltiazem CD [Cardizem CD] 120 mg PO QODAY 01/09/18 Ergocalciferol [Vitamin D] 2,000 units PO DAILY 01/09/18 Fludrocortisone Acetate [Florinef] 0.1 mg PO QHS 01/09/18 Aspirin E.C. [Ecotrin] 81 mg PO DAILY@0800 #30 tab 01/10/18 Following Prescrptions Were Given to Patient: Aspirin E.C. [Ecotrin] 81 mg PO DAILY@0800 #30 tab Primary Care Physician: Jose Abrams MD [Primary Care Provider] - Please follow up with your Primary Care Physician in: in 1- 2 weeks Disposition: Home Minutes spent on discharge:: 38 Patient Condition:: Stable Medical Necessity - Tobacco Use Smoking Status: Never smoker Tobacco Use: Non-smoker Meaningful Use Info Meaningful Use Diagnoses (Choose all that apply): None applicable Code Visit OBSV E AND M: 01830 Observation care discharge 01/10/18 1241 <Electronically signed by Elier Gordon MD> Date Elier Gordon MD Cosigner Signature (if applicable): Date CC: Tereso Abrams MD; Elier Gordon MD Signed DISCHARGE INSTRUCTION Observed: 01/10/2018 Status: F Source: [place] 12:40 PM [facility] REPOSITORY [facility] Medical Records Department [address] [place] [address] Instructions for Home/Discharge Instructions 01/10/18 0943 MR#: [id number] Acct: [id number] Name: DEANA LYNN Rep #: [id number] : 1940 77 From: Elier Gordon MD PCP: Tereso Abrams MD Status: ADM JAVIER - Discharge Diagnoses Current Active Problems: Current Active and Chronic Problems (Last Updated 12/29/17 @ 08:35 by Linda Patel) TGA (transient global amnesia) (Acute) You will use the following diet at home:: No restrictions Allergies/Adverse Reactions: Allergies Penicillins Allergy (Verified 01/09/18 08:55) Rash Sulfa (Sulfonamide Antibiotics) Allergy (Verified 01/09/18 08:55) Rash FLOURIDE Allergy (Uncoded 01/09/18 08:55) Rash cough syrup Adverse Reaction (Uncoded 01/09/18 13:12) Upset Stomach Medications to take at Discharge Ascorbic Acid [Vitamin C] 500 mg PO DAILY@0800 01/07/14 Multivitamins,Ther W-Minerals [Multivitamin With Minerals] 1 tab PO DAILY 01/07/14 Ranitidine [Zantac] 150 mg PO DAILY PRN PRN 01/07/14 fluticasone 50 mcg/actuation nasal spray,suspension 1 - 2 spray INTRANASAL DAILY PRN 10/17/17 levothyroxine 50 mcg tablet 25 mcg PO DAILY 10/17/17 potassium chloride ER 20 mEq tablet,extended release 20 meq PO QHS 10/17/17 Diltiazem CD [Cardizem CD] 120 mg PO QODAY 01/09/18 Ergocalciferol [Vitamin D] 2,000 units PO DAILY 01/09/18 Fludrocortisone Acetate [Florinef] 0.1 mg PO QHS 01/09/18 Aspirin E.C. [Ecotrin] 81 mg PO DAILY@0800 #30 tab 01/10/18 The following prescriptions were given: Aspirin E.C. [Ecotrin] 81 mg PO DAILY@0800 #30 tab Primary Care Physician: Jose Abrams MD [Primary Care Provider] - Please follow up with your Primary Care Physician in: in 1- 2 weeks Test Results: Test results from this visit will be discussed in further detail at your follow-up appointment, if applicable. Proposed Discharge Date: 01/10/18 01/10/18 1240 <Electronically signed by Elier Gordon MD> Date Elier Gordon MD CC: Sammy Sin MD; Tereso Abrams MD ECHOCARDIOGRAM COMPLETE Observed: 01/10/2018 Status: F Source: [place] 11:18 [facility] REPOSITORY [facility] Cardiovascular Services [address] [place] [address] Echo Complete 01/10/18 0959 MR#: [id number] Acct: [id number] Name: DEANA LYNN Rep #: [id number] : 1940 77 From: Keyur Canseco MD Attending Dr: Elier Gordon MD Status: ADM JAVIER Ordering Dr: Elier Gordon MD Date: 01/09/18 Location: [facility] Sex: F C Admitted: 01/09/18 Reason For Study: TIA/CVA Procedure This was a 2D Doppler, Color Flow transthoracic echocardiogram. Exam performed portable in ED. Left Ventricle Mild eccentric left ventricular hypertrophy. The estimated ejection fraction is 65 %. Stage 1 diastolic dysfunction. No regional wall motion abnormalities noted. Right Ventricle Normal size and thickness. Normal systolic function. Atria Normal left atrium. Normal right atrium. Normal atrial septum. Mitral Valve The mitral valve is structurally normal. No prolapse or stenosis seen. Trivial mitral valve insufficiency. Tricuspid Valve Normal tricuspid valve. Trivial tricuspid valve insufficiency. Right ventricular systolic pressure estimated to be 24 mmHg. Aortic Valve Trisinus/trileaflet aortic valve. Aortic sclerosis, no stenosis. Pulmonic Valve Normal pulmonic valve. Great Vessels Normal aortic root. Normal arch. Normal inferior vena cava. Inferior vena cava collapse with sniff. Pericardium/Pleural No pericardial effusion. Medication Performed a rapid injection of agitated mix of 9 cc saline and 1cc air to assess for atrial septal defect. MMode/2D Measurements AND Calculations LVIDd: 3.9 cm IVSd: 1.2 cm Ao root diam: 2.7 cm LVIDs: 2.6 cm LVPWd: 0.98 cm RVDd: 2.4 cm FS: 33.2 % LAV(MOD-bp): 28.9 ml LA A4 area: 10.8 cm2 LA dimension(2D): 2.4 cm LAV(MOD-bp) Indexed: 20.7 ml/m2 LAV(MOD-sp2): 26.6 ml LAV(MOD-sp4): 26.6 ml RA A4 area: 9.8 cm2 Time Measurements MV dec time: 0.25 sec Doppler Measurements AND Calculations MV E max jayme: 58.5 cm/sec Lat Peak E' Jayme: 4.0 cm/sec Med Peak E' Jayme: 5.2 cm/sec MV A max jayme: 99.9 cm/sec E/E' lat: 14.8 E/E' med: 11.2 MV E/A: 0.59 Ao V2 max: 125.7 cm/sec LV V1 max: 122.2 cm/sec PA V2 max: 87.2 cm/sec Ao max P.3 mmHg LV V1 max P.0 mmHg TR max jayme: 218.4 cm/sec TR max P.1 mmHg Interpretation Summary Mild eccentric left ventricular hypertrophy. The estimated ejection fraction is 65 %. Stage 1 diastolic dysfunction. Trivial mitral valve insufficiency. Trivial tricuspid valve insufficiency. Right ventricular systolic pressure estimated to be 24 mmHg. Compared to echo report dated 07/01/2014, no appreciable changes noted. Ordering Physician: Elier Gordon Referring Physician: Tereso Abrams Performed By: Katie Camacho, JAYESH, RVT 01/10/18 1117 Date Keyur Canseco MD CC: Tereso Abrams MD; Elier Gordon MD Date Dictated: 01/10/18 0959 Date Transcribed: 01/10/181116 Diesel Crane Operator: Signed BASIC METABOLIC Collected: 01/10/2018 Status: F Source: [place] PROFILE (BMP) 6:42 AM [facility] REPOSITORY TYPE CODE TESTS RESULT OUT OF RANGE REFERENCE UNITS LAB L501.0100 74-106 mg/dL Normal GLU 85 Result Comment: Please note revised GLUCOSE reference range effective 2017. LAB L501.1000 7-18 mg/dL Normal BUN 9 LAB L501.1100 0.55-1.02 mg/dL Normal CREAT,SERUM 0.77 Result Comment: The validity of the calculated GFR AND GFRAA in patients over 70 years has not been determined. Clinical correlation is essential. LAB L501.1110 >60 mL/min Normal EST GFR 78 Result Comment: Non- GFR Calc LAB L501.1115 >60 mL/min Normal EST GFR - AA 94 Result Comment: GFR Calc LAB L501.1255 ml/min Normal Estimated CRCL 36.07 LAB L501.1300 10-20 RATIO Normal BUN/CRE 11.7 LAB L501.2200 8.5-10 mg/dL Normal .1 CA 8.7 LAB L501.5300 136-14 mmol/L Normal 5 NA 137 LAB L501.5600 3.5-5. mmol/L Normal 1 K 4.1 LAB L501.5900 98-107 mmol/L Normal CL 102 LAB L501.6100 21.0-3 mmol/L Normal 2.0 CO2 26.0 LAB L501.6200 5-15 Normal GAP 9 Performed By: #### L500.2500, L500.4100 #### [facility] [address] [place], [address] LIPID PROFILE Collected: 01/10/2018 Status: F Source: [place] 6:42 AM [facility] REPOSITORY TYPE CODE TESTS RESULT OUT OF RANGE REFERENCE UNITS LAB L501.4900 200 mg/dL Normal CHOL 179 Result Comment: <200 mg/dL Desirable 200-240 mg/dL Borderline >240 mg/dL High Risk LAB L501.5000 mg/dL Normal TRIG 61 Result Comment: The drugs N-Acetylcysteine and Metamizole may falsely depress this assay. Serum Triglycerides Reference Interval Normal <150 mg/dL Borderline high 150 - 199 mg/dL High 200 - 499 mg/dL Very High > or = 500 mg/dL LAB L501.6400 mg/dL Normal HDL 79 Result Comment: The drugs N-Acetylcysteine and Metamizole may falsely depress this assay. Reference Range HDL <40 mg/dL Low HDL Cholesterol HDL >or= 60 mg/dL High HDL Cholesterol LAB L501.6500 0-130 mg/dL Normal LDL 88 LAB L501.6600 5-40 mg/dL Normal VLDL 12 Performed By: #### L500.2500, L500.4100 #### [facility] [address] [place], [address] TROPONIN-I Collected: 01/09/2018 Status: F Source: [place] 4:10 PM [facility] REPOSITORY Order Comment: 'TROP' Serial specimen #1, #2 or #3: 3 TYPE CODE TESTS RESULT OUT OF RANGE REFERENCE UNITS LAB L501.4010 <0.045 ng/mL Normal < 0.015 TROPONIN-I Result Comment: TROPONIN-I EXPECTED VALUES <0.045 Negative 0.045 - 0.590 Consistent with Cardiac Damage > OR = 0.600 Critical Value Not every elevated troponin is indicative of MA. These values should be used with clinical judgement in examining the patient's clinical picture for diagnosis. To establish a diagnosis of MA versus myocardial injury, there must be a demonstrated rise and/or fall in the troponin values, in addition to ischemic symptoms, EKG changes, new regional wall motion abnormality, and/or angiographical evidence. PLEASE NOTE: REFERENCE RANGES EDITED 17 Performed By: #### L501.4010 #### [facility] [address] [place], [address] EMERGENCY DEPARTMENT Observed: 01/09/2018 Status: F Source: [place] SUMMARY 3:54 PM [facility] REPOSITORY [facility] Medical Records Department [address] [place] [address] Emergency Department Summary 01/09/18 1201 MR#: [id number] Acct: [id number] Name: DEANA LYNN Rep #: [id number] : 1940 77 From: Flaquito Bergman MD PCP: Tereso Abrams MD Status: ADM JAVIER - ER Visit Summary Date of Service: 01/09/18 Chief Complaint: Not able to think right History of Present Illness: The patient is a 77 F presenting for evaluation secondary to confusion. Patient has an underlying history of hypertension. Patient states that she is on a beta-lety for this and intermittently takes steroids. Patient states that about 30 minutes prior to arrival he had a feeling of lightheadedness. She states that this was associated with a feeling of inability to think correctly and an inability to remember things. Patient states that she was having some difficulty with remembering medications. She does endorse that she is having some numbness in her hands bilaterally right being worse than left. Patient denies any fever or visual changes weakness cough nausea vomiting diarrhea chest pain or shortness of breath associated with this. Review of systems otherwise negative. Physical Examination: Vital signs are within normal limits, patient is afebrile. General: Patient is well-nourished well-developed and in no acute distress. Head: Normocephalic, atraumatic Eyes: Pupils equal round and reactive bilaterally, extra occular motion intact bialterally ENT: Moist mucous membranes Neck: Supple, no lymphadenopathy, no JVD, no meningismus CVS: Heart regular rate and rhythm, no murmurs, rubs or gallops, radial pulses 2+ bilaterally Resp: Respirations nondistressed, lung sounds clear bilaterally Abdomen: Soft, nontender, nondistended, no palpable masses, normal bowel sounds Back: Nontender Extremities: Nontender, atraumatic, active full range of motion, no peripheral edema Skin: warm, no rashes, no petechia Neuro: Alert and oriented x 4, CN 2-12 intact, no lateralizing neurological defecits, NIH stroke scale is 0. Normal cerebellar testing. Psyc: Normal affect Test Results: CT brain shows chronic changes. EKG shows a first-degree AV block with a sinus rate of [address] segments normal T waves. CBC chemistry urinalysis and troponin found to be negative. Emergency Department Course and Treatment: Patient presented for evaluation secondary to confusion. Workup is negative as noted above. Patient I do believe has risk factors including age and hypertension for the possibility of stroke. I believe she requires admission for further workup of this. I discussed this with hospitalist. Disposition: Admission Impression: 1. Confusion This note was generated with [employer] dictation software. It may contain incorrect words, spelling, and punctuation that were not noted in review of the chart prior to signing ED Disposition - Plan for ED Patient: Chief Complaint: Dizziness Referrals: Jose Abrams MD [Primary Care Provider] - What to do if you have Problems For any increased pain, shortness of breath, bleeding, nausea or vomiting, chest pain, or any unexpected problems, contact your Primary Care Provider. Call [facility] ([phone]) or report to the closest Emergency Room. Call 911 if necessary. 01/09/18 1552 <Electronically signed by Flaquito Bergman MD> Date Flaquito Bergman MD Cosigner Signature (If Indicated): Date CC: Tereso Abrams MD HISTORY AND PHYSICAL Observed: 01/09/2018 Status: F Source: [place] EXAM 2:05 PM [facility] REPOSITORY [facility] Medical Records Department [address] [place] [address] History and Physical 01/09/18 1358 MR#: [id number] Acct: [id number] Name: DEANA LYNN Rep #: [id number] : 1940 77 From: Elier Gordon MD PCP: Tereso Abrams MD Status: ADM JAVIER Y Location: [place] [address] Problem List (1) TGA (transient global amnesia) Status: Acute (2) Essential hypertension Status: Chronic (3) Vasovagal syncope Status: Chronic (4) Fibromyalgia Status: Chronic (5) Hyperlipidemia Status: Chronic (6) Paroxysmal tachycardia Status: Chronic (7) Premature ventricular contraction Status: Chronic (8) Premature atrial contractions Status: Chronic History of Present Illness Date of Admission: 01/09/18 Chief Complaint: Forgetfulness The patient is a 77 year old F past medical history is none for recurrent vasovagal syncope for which she is followed by cardiology, hypertension, lipidemia who presents with forgetfulness. Patient symptoms started on the morning of her presentation. Woke up feeling fuzzy. She did feel lightheaded felt she was going to pass out but she never did. She also did experience numbness in both upper extremities this was followed by episodes where she could not remember anything. Patient's brought her to the emergency department as a result. Initial imaging studies came back unremarkable however an assessment of possible transient global amnesia was made admitted to a monitored bed for subsequent management. Past Medical History Past Medical History (Chronic Problems): Chronic Problems (Last Updated 12/29/17 @ 08:35 by Linda Patel) Essential hypertension (Chronic) Vasovagal syncope (Chronic) Fibromyalgia (Chronic) Hyperlipidemia (Chronic) Paroxysmal tachycardia (Chronic) Premature ventricular contraction (Chronic) Premature atrial contractions (Chronic) Medical History: Medical History (Last Updated 12/29/17 @ 08:35 by Linda Patel) Essential hypertension (Chronic) I10 Vasovagal syncope (Acute) R55 Fibromyalgia (Chronic) M79.7 Hyperlipidemia (Chronic) E78.5 Paroxysmal tachycardia (Acute) I47.9 Premature ventricular contraction (Acute) I49.3 Premature atrial contractions (Acute) I49.1 GERD (gastroesophageal reflux disease) K21.9 Hypertension (Inactive) I10 Allergies Penicillins Allergy (Verified 01/09/18 08:55) Rash Sulfa (Sulfonamide Antibiotics) Allergy (Verified 01/09/18 08:55) Rash FLOURIDE Allergy (Uncoded 01/09/18 08:55) Rash cough syrup Adverse Reaction (Uncoded 01/09/18 13:12) Upset Stomach Home Medications: Ambulatory Orders Medication Instructions Recorded Ascorbic Acid [Vitamin C] 500 mg PO DAILY@0800 01/07/14 Surgical History: Surgical History (Last Reviewed 10/17/17 @ 09:18 by Linda Patel) H/O hysterectomy with oophorectomy History of section Z98.891 History of lymph node biopsy Z98.890 Excision Rt. Axillary Smoking Status: Never smoker - *Family History Maternal History Items: - - negative for stroke Review of Systems Constitutional: Reports: Anorexia Unable to obtain accurate/complete ROS d/t: Due to patient being forgetful VTE Information - Inpt Only VTE Present on Admission: No VTE Mechan Device Prophylaxis: Knee High LEANDER Hose VTE Pharm Prophylaxis ordered?: Yes Patient Problems: Active and Suspected Problems (Last Updated 12/29/17 @ 08:35 by Linda Patel) TGA (transient global amnesia) (Acute) Objective: GENERAL: cooperative HEENT: Atraumatic; moist oral mucosa EYES; Anicteric, Normal Conjunctiva NECK; supple, normal thyroid, no distended JVD. RESPIRATORY: Diminished to auscultation bilaterally, CARDIOVASCULAR: Regular S1 S2, no audible murmurs GI: soft, non-tender, normoactive bowel sounds, : No Renal angle tenderness; EXTREMITIES: No edema, no clubbing, no cyanosis. MUSCULOSKELETAL: No Joint Tenderness; no muscle waisting NEURO: Awake; no lateralizing signs. SKIN: No Rash PSYCH; Normal affect - Physical Exam Vital Signs Temp Pulse Resp BP Pulse Ox 98.3 F 96 16 181/102 H 98 01/09/18 12:49 01/09/18 12:51 01/09/18 12:49 01/09/18 12:51 01/09/18 12:49 Oxygen Delivery Method Room Air Weight: 47.174 kg Body Mass Index (BMI) 20.9 Finger Stick Blood Glucose 89 Laboratory Tests Past 24 Hrs WBC 3.8 L RBC 4.68 Hgb 14.4 Hct 42.2 MCV 90.2 MCH 30.8 MCHC 34.1 RDW 12.8 RDW Differential 41.9 WBC RBC Hgb Assessment/Plan All Active Problems (Last Updated 12/29/17 @ 08:35 by Linda Patel) TGA (transient global amnesia) (Acute) Patient is a 77-year-old lady presented with forgetfulness 1. Transient global amnesia: Patient has been admitted to monitored bed where she is undergoing subsequent evaluation. Ordered MRI of the head as well as CT angiogram of the head and neck. Started patient on antiplatelet aspirin ordered echo as well as neurology consultation 2. History of recurrent vasovagal syncopal episodes; and on Florinef 3. History of cardiac arrhythmias including PVCs, PACs as well as PACs patient on Cardizem 4. Hypothyroidism-patient is on levothyroxine home dose continued 5. Dyslipidemia managed with only diet 6. Fibromyalgia; symptomatic treatment 7. DVT prophylaxis SC Lovenox Code Visit OBSV E AND M: [id number] Initial observation care L3 01/09/18 1405 <Electronically signed by Elier Gordon MD> Date Elier Gordon MD Cosigner Signature: Date (if applicable) CC: Tereso Abrams MD; Elier Gordon MD Signed TROPONIN-I Collected: 01/09/2018 Status: F Source: [place] 1:00 PM [facility] REPOSITORY TYPE CODE TESTS RESULT OUT OF RANGE REFERENCE UNITS LAB L501.4010 <0.045 ng/mL Normal < 0.015 TROPONIN-I Result Comment: TROPONIN-I EXPECTED VALUES <0.045 Negative 0.045 - 0.590 Consistent with Cardiac Damage > OR = 0.600 Critical Value Not every elevated troponin is indicative of MA. These values should be used with clinical judgement in examining the patient's clinical picture for diagnosis. To establish a diagnosis of MA versus myocardial injury, there must be a demonstrated rise and/or fall in the troponin values, in addition to ischemic symptoms, EKG changes, new regional wall motion abnormality, and/or angiographical evidence. PLEASE NOTE: REFERENCE RANGES EDITED 17 Performed By: #### L501.4010 #### [facility] [address] [facility] [place], [address] CTA NECK W/WO Observed: 01/09/2018 Status: F Source: ADELINE CONTRAST 12:54 PM [facility] REPOSITORY [facility] Imaging Services [address] [facility] [facility] [place] [address] CTA Neck W/WO Contrast MR#: [id number] Acct: [id number] Name: DEANA LYNN Rep #: [id number] : 1940 F 77 From: Ap Chacko MD PCP: Tereso Abrams MD Status: ADM JAVIER Study: CTA Neck W/WO Contrast Date of Exam: 01/09/18 Exam# [id number] Ordering Dr: Elier Gordon MD STUDY: CTA NECK WITH CONTRAST REASON FOR EXAM: Female, 77 years old. Dizziness and stroke RADIATION DOSAGE (If Supplied By Facility): CTDIvol = ( 10.7 ) mGy, DLP = ( 459.86 ) mGycm TECHNIQUE: CT angiography with multi-detector data acquisition was performed from the aortic arch to the skull base following intravenous administration of 100 ml of Isovue 370 contrast. MIP images were reconstructed from the axial data set. Post-processing of the angiographic images was performed, with multiplanar reformation and 3D reconstruction. Individualized dose optimization techniques were used for this CT. COMPARISON: CT brain January 09, 2018 FINDINGS: AORTIC ARCH: Normal visualized aortic arch. Normal origins of the brachiocephalic, left common carotid, and left subclavian arteries. RIGHT CAROTID ARTERIES: Normal right common carotid artery (CCA). Normal right common carotid bulb. Normal origin of the right internal carotid (ICA) artery without a hemodynamically significant stenosis. Normal visualized cervical portion of the right internal carotid artery. Normal origin of the right external carotid artery (ECA). LEFT CAROTID ARTERIES: Normal left common carotid artery (CCA). Normal left common carotid bulb. Normal origin of the left internal carotid (ICA) artery without a hemodynamically significant stenosis. Normal visualized cervical portion of the left internal carotid artery. Normal origin of the left external carotid artery (ECA). VERTEBRAL ARTERIES: Normal bilateral vertebral arteries. CT/CTA Neck W/WO Contrast IMPRESSION: Normal bilateral cervical carotid and vertebral arteries. Electronically Signed: Ap Chacko MD at 16:29 EST , Service support , CC: Tereso Abrams MD; Elier Gordon MD Diesel Crane Operator: Signed CTA HEAD W/WO Observed: 01/09/2018 Status: F Source: ADELINE CONTRAST 12:54 PM [facility] REPOSIT[facility] Imaging Services [facility] [place] [address] CTA Head W/WO Contrast MR#: [id number] Acct: [id number] Name: DEANA LYNN Rep #: [id number] : 1940 F 77 From: Ap Chacko MD PCP: Tereso Abrams MD Status: ADM JAVIER Study: CTA Head W/WO Contrast Date of Exam: 01/09/18 Exam# [id number] Ordering Dr: Elier Gordon MD STUDY: CTA OF THE BRAIN REASON FOR EXAM: Female, 77 years old. Dizziness and stroke RADIATION DOSAGE (If Supplied By Facility): CTDIvol = ( 10.7 ) mGy, DLP = ( 459.86 ) mGycm TECHNIQUE: CT angiography was performed with a multi-detector CT scanner. Data acquisition was obtained from the skull base through the vertex following intravenous administration of 100 ml of Isovue-370. MIP images were reconstructed from the axial data set. Post-processing of the angiographic images was performed, with multiplanar reformation and 3D reconstruction. Individualized dose optimization techniques were used for this CT. COMPARISON: CT brain January 09, 2018 and CTA brain December 03, 2015 FINDINGS: Normal bilateral petrous carotid arteries. Normal right cavernous carotid artery with a normal supraclinoid bifurcation. Normal left cavernous carotid artery with a normal supraclinoid bifurcation. Normal right A1 segments of the anterior cerebral artery. Normal left A1 segments of the anterior cerebral artery. Normal intact anterior communicating artery (ACOM). Normal bilateral A2 segments of the anterior cerebral arteries. Normal right M1 and M2 segments of the middle cerebral arteries, with a normal M1 bifurcation. Normal left M1 and M2 segments of the middle cerebral arteries, with a normal M1 bifurcation. Normal right posterior communicating artery (PCOM). There is non-visualization of the left posterior communicating artery (PCOM). Normal bilateral vertebral arteries. Normal basilar artery with a normal basilar bifurcation. The visualized bilateral superior cerebellar (SCA) arteries are normal. Normal bilateral P1, P2 and visualized P3 segments of the posterior cerebral arteries. There is no demonstrated aneurysm of the [place] of [place]. There is no demonstrated abnormality of the visualized brain. CT/CTA Head W/WO Contrast IMPRESSION: Normal [place] of [place] without a demonstrated aneurysm or hemodynamically significant stenosis. Electronically Signed: Ap Chacko MD at 16:53 EST , Service support , CC: Tereso Abrams MD; Elier Gordon MD Diesel Crane Operator: Signed BRAIN WITHOUT Observed: 01/09/2018 Status: F Source: ADELINE CONTRAST 12:54 PM [facility] REPOSITORY [facility] Imaging Services [address] [place] [address] Brain without Contrast MR#: [id number] Acct: [id number] Name: DEANA LYNN Rep #: [id number] : 1940 F 77 From: Ap Chacko MD PCP: Tereso Abrams MD Status: ADM JAVIER Study: Brain without Contrast Date of Exam: 01/09/18 Exam# [id number] Ordering Dr: Elier Gordon MD STUDY: MRI BRAIN WITHOUT CONTRAST REASON FOR EXAM: Female, 77 years old. TIA, and numbness and headaches. Syncope. TECHNIQUE: Standardized multiplanar fat and water weighted pulse sequences were obtained. COMPARISON: CTA brain January 09, [address] brain same date. FINDINGS: There is mild cerebral atrophy with widening of the extra- axial spaces and ventricular dilatation. There are a limited number of small white matter hyperintensities, distributed throughout the deep white matter tracts of the cerebral hemispheres, consistent with mild chronic white matter ischemic changes. There is no evidence for recent intracranial ischemia or other cause of cytotoxic edema on diffusion weighted imaging (DWI). There are prominent perivascular spaces (PVS) involving the basal ganglia. Normal thalami. There is no extra-axial fluid accumulation. Normal flow voids within the major intracranial circulation suggesting patency by spin echo criteria. Normal sella turcica, pituitary gland, infundibular stalk, optic chiasm and hypothalamus. Normal tectal plate and pineal gland. Normal midbrain, [place] and medulla. Normal cerebellum. Normal basal cisterns. Normal bilateral temporal bones. Normal bilateral internal auditory canals. There are bilateral ocular lens implants with otherwise normal intraorbital contents. Normal visualized paranasal sinuses. Normal calvarium and skull base. Normal visualized soft tissue structures. Normal visualized upper cervical spine. MRI/Brain without Contrast IMPRESSION: Involutional changes of the brain, as described above. Electronically Signed: Ap Chacko MD at 19:31 EST , Service support , CC: Tereso Abrams MD; Elier Gordon MD Diesel Crane Operator: Signed URINALYSIS, COMPLETE Collected: 01/09/2018 Status: F Source: ADELINE 11:00 AM [facility] REPOS[facility] Order Comment: How was Urine Obtained? CARBON SETTER TO SPECIFY TYPE CODE TESTS RESULT OUT OF RANGE REFERENCE UNITS LAB L400.3000 Yellow COLOR Normal Straw LAB L400.3050 Clear Normal CLARITY Clear LAB L400.3200 Normal mg/dl Normal GLUCOSE, UR Normal LAB L400.3300 Negative mg/dL Normal BILIRUBIN URINE Negative LAB L400.3400 Negative mg/dl Normal KETONE UR Negative LAB L400.3465 1.002-1.030 Normal SP.GR. DIPSTX 1.010 LAB L400.3550 5.0 - 8.0 pH UR Normal 8.0 LAB L400.3600 Negative mg/dl PROT Normal DIPSTX Negative LAB L400.3700 Normal mg/dl Normal UROBILI Normal LAB L400.3750 Negative Normal NITRITE UR Negative LAB L400.3780 Negative /ul Normal OCCULT BLOOD-UR Negative LAB L400.3800 Negative /ul LEUK Normal ESTERASE Negative LAB L400.4050 0-5 /hpf WBC 0 Normal SEEN LAB L400.4100 0-5 /hpf 0 Normal RBC-UA SEEN LAB L400.4150 5-10 /hpf SQUAM 0 Normal EPI SEEN LAB L400.4300 None Seen /hpf 0 Normal BACTERIA SEEN LAB L400.4350 <or=2+ /hpf 0 Normal MUCUS, URINE SEEN Performed By: #### L400.0001 #### [facility] [address] [place], [address] CBC W/DIFF, AUTOMATED Collected: 01/09/2018 Status: F Source: ADELINE 9:20 AM [facility] REPOS[facility] TYPE CODE TESTS RESULT OUT OF RANGE REFERENCE UNITS LAB L100.1000 4.4-11.0 K/mm3 Low WBC 3.8 LAB L100.1200 4.2-5.4 M/mm3 Normal RBC 4.68 LAB L100.1300 12.0-15.0 g/dl Normal HGB 14.4 LAB L100.1400 37-47 % Normal HCT 42.2 LAB L100.1500 81-99 fL Normal MCV 90.2 LAB L100.1600 27.0-32.0 pg Normal MCH 30.8 LAB L100.1700 32-36 g/gl Normal MCHC 34.1 LAB L100.1810 11.6-14.6 % Normal RDW CV 12.8 LAB L100.1820 35.1-43.9 fl Normal RDW SD 41.9 LAB L100.1900 150-450 K/mm3 Normal PLT 238 LAB L100.2000 6.2-12.0 fl Normal MPV 10.1 LAB L100.2100 47-70 % Normal NEUT% 63.8 LAB L100.2200 19-41 % Normal LY% 26.1 LAB L100.2300 0-10 % Normal MONO% 8.4 LAB L100.2400 0-5 % Normal EO% 1.1 LAB L100.2500 0-1 % Normal BASO% 0.3 LAB L100.2550 0.0-0.9 % Normal IM GRAN % 0.300 Result Comment: IG% - Immature Granulocytes (promyelocytes, myelocytes and metamyelocytes) > 1% indicates that a LEFT SHIFT is Present. LAB L100.2620 2.0-7.7 X10 3/uL Normal Absolute Neut 2.4 LAB L100.2720 0.83-4.51 X10 3/ul Normal Absolute Lymph 0.99 Performed By: #### L100.0100 #### [facility] [address] [place], [place], [address] PROTHROMBIN TIME W/INR Collected: 01/09/2018 Status: F Source: ADELINE 9:20 AM [facility] REPOSIT[facility] TYPE CODE TESTS RESULT OUT OF RANGE REFERENCE UNITS LAB L300.4150 11.7-14.9 SECONDS Normal PROTIME 12.8 LAB L300.4200 Normal INR 1.0 Performed By: #### L300.3900, L300.4310 #### [facility] [address] [place], [address] PARTIAL THROMBOPLAST Collected: 01/09/2018 Status: F Source: ADELINE TIME 9:20 AM [facility] REPOSIT[facility] TYPE CODE TESTS RESULT OUT OF RANGE REFERENCE UNITS LAB L300.4310 24.1-36.2 Seconds Normal PTT 24.6 Performed By: #### L300.3900, L300.4310 #### [facility] [address] [place], [address] BASIC METABOLIC Collected: 01/09/2018 Status: F Source: ADELINE PROFILE (BMP) 9:20 AM [facility] REPOSIT[facility] TYPE CODE TESTS RESULT OUT OF RANGE REFERENCE UNITS LAB L501.0100 74-106 mg/dL Normal GLU 89 Result Comment: Please note revised GLUCOSE reference range effective 2017. LAB L501.1000 7-18 mg/dL Normal BUN 8 LAB L501.1100 0.55-1.02 mg/dL Normal CREAT,SERUM 0.73 Result Comment: The validity of the calculated GFR AND GFRAA in patients over 70 years has not been determined. Clinical correlation is essential. LAB L501.1110 >60 mL/min Normal EST GFR 82 Result Comment: Non- GFR Calc LAB L501.1115 >60 mL/min Normal EST GFR - AA 99 Result Comment: GFR Calc LAB L501.1255 ml/min Normal Estimated CRCL 36.20 LAB L501.1300 10-20 RATIO Normal BUN/CRE 10.9 LAB L501.2200 8.5-10 mg/dL Normal .1 CA 8.8 LAB L501.5300 136-14 mmol/L Normal 5 NA 140 LAB L501.5600 3.5-5. mmol/L Low 1 K 3.3 LAB L501.5900 98-107 mmol/L Normal CL 101 LAB L501.6100 21.0-3 mmol/L Normal 2.0 CO2 28.0 LAB L501.6200 5-15 Normal GAP 11 Performed By: #### L500.2500, L501.4010 #### [facility] [address] [place], [address] TROPONIN-I Collected: 01/09/2018 Status: F Source: [place] 9:20 AM [facility] REPOSIT[facility] TYPE CODE TESTS RESULT OUT OF RANGE REFERENCE UNITS LAB L501.4010 <0.045 ng/mL Normal < 0.015 TROPONIN-I Result Comment: TROPONIN-I EXPECTED VALUES <0.045 Negative 0.045 - 0.590 Consistent with Cardiac Damage > OR = 0.600 Critical Value Not every elevated troponin is indicative of MA. These values should be used with clinical judgement in examining the patient's clinical picture for diagnosis. To establish a diagnosis of MA versus myocardial injury, there must be a demonstrated rise and/or fall in the troponin values, in addition to ischemic symptoms, EKG changes, new regional wall motion abnormality, and/or angiographical evidence. PLEASE NOTE: REFERENCE RANGES EDITED 17 Performed By: #### L500.2500, L501.4010 #### [facility] [address] [place], [address] BRAIN/HEAD WITHOUT Observed: 01/09/2018 Status: F Source: [place] CONTRAST 9:15 AM [facility] REPOSITORY [facility] Imaging Services [address] [place] [address] Brain/Head without Contrast MR#: [id number] Acct: [id number] Name: DEANA LYNN Rep #: [id number] : 1940 F 77 From: Elie Newman MD PCP: Tereso Abrams MD Status: REG ER Study: Brain/Head without Contrast Date of Exam: 01/09/18 Exam# [id number] Ordering Dr: Flaquito Bergman MD STUDY: CT BRAIN WITHOUT CONTRAST REASON FOR EXAM: Female, 77 years old. Dizziness. RADIATION DOSAGE (If Supplied By Facility): CTDIvol = ( 44.99 ) mGy, DLP = ( 745.49 ) mGycm TECHNIQUE: Transaxial CT imaging of the brain was performed without administration of intravenous contrast material. Individualized dose optimization techniques were used for this CT. COMPARISON: Comparison is made with prior study dated December 03, 2015. FINDINGS: Normal soft tissue structures. Normal calvarium. There is mild cerebral atrophy with widening of the extra- axial spaces and ventricular dilatation. There are areas of decreased attenuation within the white matter tracts of the supratentorial brain, consistent with microvascular disease changes. Normal basal ganglia and thalami. Normal brainstem. Normal cerebellum. There is no intracranial hemorrhage. There are no findings of an acute ischemic infarction. Atherosclerotic calcification of the cavernous portions of the internal carotid arteries bilaterally as well as the vertebral arteries. Normal visualized paranasal sinuses. CT/Brain/Head without Contrast IMPRESSION: Chronic involutional changes of the brain. Electronically Signed: Elie Newman MD at 10:27 EST Tel [phone], Service support , CC: Tereso Abrams MD; Flaquito Bergman Diesel Crane Operator: Signed CHEST 1 VIEW Observed: 01/09/2018 Status: F Source: [place] 9:15 AM [facility] REPOSITORY [facility] Imaging Services [address] [place] [address] Chest 1 View MR#: [id number] Acct: [id number] Name: DEANA LYNN Rep #: [id number] : 1940 F 77 From: Elie Newman MD PCP: Tereso Abrams MD Status: REG ER Study: Chest 1 View Date of Exam: 01/09/18 Exam# [id number] Ordering Dr: Flaquito Bergman MD STUDY: X-RAY CHEST REASON FOR EXAM: Female, 77 years old. Cough. Dizziness. TECHNIQUE: Single AP portable view of the chest. COMPARISON: Comparison is made with prior study dated November 07, 2015. FINDINGS: Hyperinflation. Scattered calcified granulomas. The lungs are clear. There is no demonstrated pleural abnormality. Normal size heart. Normal mediastinum and fani. Normal visualized pulmonary arteries. There is atherosclerotic calcification of the aortic arch with tortuosity. Normal visualized thoracic spine. Normal visualized ribs, clavicles, and shoulders. There is no demonstrated abnormality of the visualized soft tissue structures of the upper abdomen. RAD/Chest 1 View IMPRESSION: Hyperinflation. The lungs are clear. Electronically Signed: Elie Newman MD at 10:28 EST Tel [phone], Service support , CC: Tereso Abrams MD; Flaquito Bergman Diesel Crane Operator: Signed CBC-COMPLETE BLOOD CNT Collected: 11/28/2017 Status: F Source: ADELINE NO DIFF 9:11 AM [facility] REPOS[facility] TYPE CODE TESTS RESULT OUT OF RANGE REFERENCE UNITS LAB L100.1000 4.4-11.0 K/mm3 Low WBC 3.4 LAB L100.1200 4.2-5.4 M/mm3 Normal RBC 4.38 LAB L100.1300 12.0-15.0 g/dl Normal HGB 13.1 LAB L100.1400 37-47 % Normal HCT 39.6 LAB L100.1500 81-99 fL Normal MCV 90.4 LAB L100.1600 27.0-32.0 pg Normal MCH 29.9 LAB L100.1700 32-36 g/gl Normal MCHC 33.1 LAB L100.1810 11.6-14.6 % Normal RDW CV 13.1 LAB L100.1820 35.1-43.9 fl Normal RDW SD 43.4 LAB L100.1900 150-450 K/mm3 Normal PLT 231 LAB L100.2000 6.2-12.0 fl Normal MPV 10.2 Performed By: #### L100.0500, L500.2500, L501.9520, L503.6150, L506.0400 #### [facility] [address] [place], [address] BASIC METABOLIC Collected: 11/28/2017 Status: F Source: ADELINE PROFILE (BMP) 9:11 AM [facility] REPOSIT[facility] TYPE CODE TESTS RESULT OUT OF RANGE REFERENCE UNITS LAB L501.0100 74-106 mg/dL Normal GLU 77 Result Comment: Please note revised GLUCOSE reference range effective 2017. LAB L501.1000 7-18 mg/dL Normal BUN 11 LAB L501.1100 0.55-1.02 mg/dL Normal CREAT,SERUM 0.64 Result Comment: The validity of the calculated GFR AND GFRAA in patients over 70 years has not been determined. Clinical correlation is essential. LAB L501.1110 >60 mL/min Normal EST GFR 96 Result Comment: Non- GFR Calc LAB L501.1115 >60 mL/min Normal EST GFR - AA 116 Result Comment: GFR Calc LAB L501.1300 10-20 RATIO Normal BUN/CRE 17.2 LAB L501.2200 8.5-10.1 mg/dL CA Normal 8.8 LAB L501.5300 136-145 mmol/L NA Normal 140 LAB L501.5600 3.5-5.1 mmol/L Low K 3.4 LAB L501.5900 98-107 mmol/L CL Normal 103 LAB L501.6100 21.0-32.0 mmol/L Normal CO2 28.0 LAB L501.6200 5-15 Normal GAP 9 Performed By: #### L100.0500, L500.2500, L501.9520, L503.6150, L506.0400 #### [facility] [address] [place], [place], [id number] THYROID STIM HORMONE Collected: 11/28/2017 Status: F Source: ADELINE (TSH) 9:11 AM [facility] REPOS[facility] TYPE CODE TESTS RESULT OUT OF RANGE REFERENCE UNITS LAB L501.9520 0.358-3.74 uIU/mL Normal TSH 2.30 Performed By: #### L100.0500, L500.2500, L501.9520, L503.6150, L506.0400 #### [facility] [address] [place], [address] IRON Collected: 11/28/2017 Status: F Source: ADELINE 9:11 AM [facility] REPOSIT[facility] TYPE CODE TESTS RESULT OUT OF RANGE REFERENCE UNITS LAB L503.6150 50-170 ug/dL Normal IRON 65 Performed By: #### L100.0500, L500.2500, L501.9520, L503.6150, L506.0400 #### [facility] [address] [place], [address] T4 FREE DIRECT Collected: 11/28/2017 Status: F Source: [place] 9:11 AM [facility] REPOS[facility] TYPE CODE TESTS RESULT OUT OF RANGE REFERENCE UNITS LAB L506.0400 0.76-1.46 ng/dL Normal T4 FREE 1.25 DIRECT Performed By: #### L100.0500, L500.2500, L501.9520, L503.6150, L506.0400 #### [facility] [address] [place], [address] CARDIOLOGY VISIT Observed: 10/17/2017 Status: F Source: [place] REPORT 10:27 AM [facility] REPOSITORY [facility] [address] [place] [address] OFFICE VISIT Date of Service: 10/17/17 MR#: [id number] Acct: [id number] Name: DEANA LYNN Rep #: [id number] : 1940 Provider: Max Ferrer MD Age/Sex: 77/F Location: [facility] [place] Status: Signed HPI HPI Details: DEANA LYNN, is a 77 F who presents to the office today for for outpatient cardiovascular follow-up. Overall she states since her previous visit she has been doing well. She states she has had no obvious palpitations on her current medication and schedule. When she attempted to stop the medication altogether then she noted palpitations. Thus she has continued it and feels good. She has had no near syncope or syncope. She states she remembers to keep her fluid intake up, take her medication every day as prescribed, and monitor for any other concerns. She denies any obvious chest discomfort or difficulty breathing. There is been no other new ongoing medical issues or concerns. She states she has remained very active. She has been in the process of moving. She has been going up and down stairs and carrying boxes. She notes she has had no difficulty in doing so. Intake Vital Signs10/17/17 Height 4 ft 11 in 10/17/17 Weight: 105 lb 10/17/17 Body Mass Index (BMI) 21.2 10/17/17 Blood Pressure 136/72 Intake Visit Reasons: 6 M FU Allergies Penicillins Allergy (Verified 10/17/17 09:16) Rash Sulfa (Sulfonamide Antibiotics) Allergy (Verified 10/17/17 09:16) Rash FLOURIDE Allergy (Uncoded 10/17/17 09:16) Rash Medications Ascorbic Acid [Vitamin C] 500 mg PO DAILY@0800 01/07/14 [History Confirmed 10/17/17] Calcium Carb,Gluc/Mag Ox,Gluc [Calcium Magnesium Caplet] 1 ea PO DAILY 01/07/14 [History Confirmed 10/17/17] Multivitamins,Ther W-Minerals [Multivitamin With Minerals] 1 tab PO DAILY 01/07/14 [History Confirmed 10/17/17] Ranitidine [Zantac] 150 mg PO DAILY PRN PRN 01/07/14 [History Confirmed 10/17/17] fludrocortisone 0.1 mg tablet 0.1 mg PO QDAY #90 tab 05/26/17 [Rx Confirmed 10/17/17] cholecalciferol (vitamin D3) 1,000 unit tablet 2,000 unit PO DAILY tab 10/17/17 [History Confirmed 10/17/17] diltiazem CD 120 mg capsule,extended release 24 hr 120 mg PO .QOD cap 10/17/17 [History] fexofenadine 180 mg tablet 180 mg PO DAILY PRN 10/17/17 [History Confirmed 10/17/17] fluticasone 50 mcg/actuation nasal spray,suspension 2 spray INTRANASAL DAILY 10/17/17 [History Confirmed 10/17/17] levothyroxine 50 mcg tablet 50 mcg PO DAILY 10/17/17 [History Confirmed 10/17/17] potassium chloride ER 20 mEq tablet,extended release 20 meq PO BID 10/17/17 [History Confirmed 10/17/17] [facility] Medical History Vasovagal syncope (Acute) Fibromyalgia (Chronic) Hyperlipidemia (Chronic) Paroxysmal tachycardia (Acute) Hypertension (Chronic) Premature ventricular contraction (Acute) Premature atrial contractions (Acute) GERD (gastroesophageal reflux disease) (Acute) Surgical History H/O hysterectomy with oophorectomy (Resolved) History of section (Resolved) History of lymph node biopsy (Resolved) Social History Smoking Status: Never smoker alcohol intake: never substance use type: does not use ROS Const Const: Positive for fatigue (increased); negative for weakness, weight gain, weight loss, frequent falls or excessive sweating Eyes Eyes: Negative for change in vision, blurry vision or transient loss of vision ENT ENT: Negative for dizziness or balance problems Cardio Chest Pain: No Palpitations: Yes (occasional) feels like its: fast Edema: None Muscle aches with walking: None Resp Respiratory: Negative for SOB with activity or SOB at rest GI GI: Negative vomiting or vomiting blood/hematemesis : Negative for hematuria Musc Musc: Positive for muscle aches/ myalgia (HX fibromyalgia); negative for balance problems, muscle weakness or joint pain Skin Skin: Negative non-healing lesions or rash Neuro Neuro: Negative for weakness, blurry vision, dizziness, lightheadedness, frequent falls or orthostatic symptoms Stef Hematologic/Lymphatic: Negative for easy bleeding Endo Endo: Positive for fatigue (increased); negative for excessive sweating Psych Psych: Negative for anxiety or depression Allergy Allergy/Immunology: Negative for hives, Negative for rash Cardiology Exam Const Appearance: cooperative, healthy appearing, comfortable, no acute distress, well developed and well groomed Nutritional Appearance: thin Orientation: alert, awake and oriented x3 Head Head: normal to inspection, normocephalic and atraumatic Ears: hearing grossly normal bilaterally Nose: external nose normal Face and Sinus: face symmetric Mouth: oral mucosae normal Teeth and gingiva: fair dentition Eyes Eyelids: eyelids normal EOM: EOM intact bilaterally Neck Neck: normal visual inspection Carotids: normal carotid upstroke Chest Chest inspection: symmetric chest movement and normal inspection of the chest Auscultation: Bilateral: Clear to Auscultation Cardio Palpation: normal PMI Rhythm: regular rhythm Heart sounds: S1 normal and S2 normal GI GI: normal to inspection, bowel sounds present and soft Neuro General: alert, awake, oriented x3, moves all extremities, no focal motor deficits, gait normal and no focal sensory deficit Skin Skin: no rashes or lesions noted Extremities Pulses: Normal: Right Radial Pulse, Left Radial Pulse Lower Extremity Edema: None: Bilateral Psych Psychological: normal affect Supplemental Info She did have a transthoracic echocardiogram on 07/01/2014. Interpretation Summary Normal LV size, Left ventricular systolic function is normal. The estimated ejection fraction is 65 %. Structurally normal valves. She had a stress echocardiogram on 07/29/2014. This was considered a negative stress echocardiogram. She had a 30 day event monitor performed between November and December 2015 During the 30 day monitoring period the basic rhythm was Sinus with rates from 72-120 bpm. Occasiona PACFS including a pair and a burst of SVT tasting 10 beats with rates up to 174 bpm were noted. No PVCs were noted. Patient symptoms of Dizziness, Lightheaded,Chest Pain correlated with Sinus rhythm. She had a tilt table study performed on 12/04/2015 at [facility]. Procedure Comments: The patient was brought to the tilt table laboratory and laid supine on the tilt table. The patient was awake and alert: The resting heart rate was 87 bpm and the resting blood pressure was 144/75 mmHg. The cardiac rhythm was sinus rhythm. The patient was placed in the 70 upright tilt table position for approximately 20 minutes. The patient remained awake and alert and warm and dry. The minimal heart rate was 100 bpm with a minimal blood pressure of 126/80 mmHg and a maximal heart rate of 107 bpm with a maximal blood pressure 144/89 mmHg. The cardiac rhythm remained sinus rhythm. The patient complained of lightheadedness and numbness. The patient did not lose consciousness. The patient was returned to the supine position. The patient was administered nitroglycerin 0.4 mg sublingual 1. The patient was returned to the 70 upright tilt table position for approximately 10 minutes. The patient was noted to initially be awake and alert and warm and dry. The patient had a minimal heart rate of 85 bpm with a minimal blood pressure of 102/56 mmHg. The maximal heart rate was 134 bpm with a maximal blood pressure 133/88 mmHg. The patient remained in sinus rhythm. The patient was noted to have lightheadedness. The patient was noted to subsequently lose consciousness. The patient was returned to the supine position. The patient was monitored in the supine position. The patient was awake and alert and warm and dry. The patient was noted to have a concluding heart rate of 85 bpm with a concluding blood pressure 122/74 mmHg. the cardiac rhythm remained sinus rhythm. The patient returned to her baseline state. The patient was subsequently released from a tilt table laboratory. Summary: 70 upright tilt table study post nitroglycerin sublingual challenge considered positive for reproducible vasovagal mediated/neurocardiogenic (cardioinhibitory/vasopressor) mediated syncope. Assessment AND Plan 1. Vasovagal syncope R55 Plan At the present time she appears to be doing well with no further episodes of near syncope or syncope. She is going to continue her fluid support. She continues her Florinef therapy. She states she has not got to the point where she feels she needs support stockings. 2. Premature atrial beat I49.1 Plan She does have a history of underlying ectopy. She states when she was without her diltiazem therapy she did feel palpitations. However with it she feels much better. She will continue her current dose and schedule 3. Premature ventricular beat I49.3 Plan Again she is does have an underlying history of ectopy. As noted above on her current dose and schedule she feels much better. She will continue her current. 4. Hypertension, unspecified type I10 Plan Her blood pressure appears to be well controlled at this time. She will continue her current medical management. Plan Detail Additional Comments She will be scheduled for an outpatient visit in approximately 1 year unless needed sooner. Thank you for allowing me to participate in the care of your patient. Please don't hesitate to call if any issues arise. This note was generated using a voice recognition system and there may be incorrect words, spelling or punctuation that were not noted when reviewing the office note prior to saving. Follow Up 1 Year Coding Level of Care Code Off vis,est,level 3 Diagnoses Vasovagal syncope R55 Premature atrial beat I49.1 Premature ventricular beat I49.3 Hypertension, unspecified type I10 Hypertension type: unspecified Coding Level of Care Code Off vis,est,level 3 Diagnoses Vasovagal syncope R55 Premature atrial beat I49.1 Premature ventricular beat I49.3 Hypertension, unspecified type I10 Hypertension type: unspecified 10/17/17 1027 <Electronically signed by Max Ferrer MD> Date Max Ferrer MD Cosigner Signature: Date (if applicable) CC: Tereso Abrams MD PT D/C SUMMARY (1) Observed: 07/14/2017 Status: F Source: [place] 9:20 AM [facility] REPOSITORY [facility] [address] [place] [address] Fax REHABILITATION SERVICES DISCHARGE SUMMARY MR#: [id number] Acct: [id number] Name: DEANA LYNN Rep #: [id number] : 1940 77 From: Josep Quintanilla PT, Cert. MDT, OCS Referring Dr.: Tereso Abrams MD Status: REG RCR Insurance: [facility] SELF PAY INSURANCE HP - PT D/C Summary It has been my pleasure to treat DEANA LYNN under orders from Tereso Abrams, for the diagnosis of CERVICAL DDD for a total of 7 visit(s). Discharge Date: 07/12/17 Please see the following information for a summary of their discharge status. - Subjective Subjective: Pt states that she is doing well. She denies pain prior to the session. She will occasionally have pain while she is moving items into her new condo. She has tightness with R cervical rotation and lateral flexion. She remains compliant with HEP. She would like to be done after this visit. - Pain Bilateral Neck Pain Intensity (Out of 10): 0 - Overall Improvement % Improvement: 50 - Objective Objective/Function: Observation: forward head, high tone B upper traps. ROM: cervical flexion 25% limited, extension 25% limited, L rotation full, R rotation limited 25% and elicits pain,. thoracic extension ROM impaired with pain at end range but no worse after wards. MMT: 4/5 grossly ,4-/5. NEURO: intact. PALAPTION: UT/LEVATOR - Goals Goal 1:: Patient to be Independant with HEP Goal Progress: Goal Met Goal 2:: Patient to be Independant with posture for ADL'S Goal Progress: Goal Met Goal 3:: Patient decrease cervical pain by 50% or greater to improve function with ADL'S Goal Progress: Goal Met Goal 4:: Patient to improve cervical ROM for function of recovery Goal Progress: Goal Met Goal 5:: Patient be able to perform ADLS',yoga and housework tasks with min limiations Goal Progress: Goal Met - Plan Plan: Discharge. Pt to continue HEP to sustain gains made with PT. - D/C Information Discharge Comments: HEP If there are questions or concerns regarding this patient's physical therapy, please feel free to call me at [phone]. Thank you for the referral of this patient. Sincerely, Josep Quintanilla PT, <Electronically signed by Cert. ANGELA Kincaid PT, OCS> 07/14/17 0920 CC: Tereso Abrams MD FOREST Signed INITAL EVALUATION (1) Observed: 06/16/2017 Status: F Source: [place] - PT 10:56 AM [facility] REPOSITORY [facility] [address] [place] [address]. [address] [place] [address] Fax REHABILITATION SERVICES INITIAL EVALUATION MR#: [id number] Acct: [id number] Name: DAENA LYNN Rep #: [id number] : 1940 76 From: Cert. ANGELA Kincaid PT, OCS Referring Dr.: Tereso Abrams MD Status: REG R Insurance: [facility] SELF PAY INSURANCE Patient's Visit Information DEANA LYNN is a 76 year old F referred to Physical Therapy by Tereso Abrams with a diagnosis of CERVICAL DDD. Date of Evaluation: 06/15/17 Physical Therapist: Josep Quintanilla PT, - Visit Plan Frequency: 2x /Week Duration: 3 Weeks Plan: US/MHP,CERVICAL ROM,POSTURAL STRENGTHENING,ICTX - Subjective Subjective: This 76 y/o female presents to physical therapy with cervical DDD for several years. Symptoms base at cervical spine desribed as dull pain. Symptoms worse with flexion ,yoga bending foward.. Symptoms better on the move exercises.Denies parathesia/tingling.Denies LAMAR/dizzines/tinnutus. Patient seen DR kurt x-rays showed DDD and right foraminal stenosis. Sleeping okay at night. VOCATION: retired. SOCIAL: - Pain Bilateral Neck Pain Intensity (Out of 10): 3 Pain Intensity Range: 10 - Objective POSTURE: mild foward posture rounded shoulders head foward. NEURO: denies parathesia/tingling ,reflexes C5-6-7 1/. PALAPTION: tender UT/LEVATOR ,. AROM: BUE WFL. CERVICAL ROM: cervical ROM min loss,extension mod loss,rotation mod loss,extension mod loss pain worse on right. MMT: grossly 4/5 ,shoulder 4-/5 - Special Tests C/S Radiculapathy - Left Upper limb tension test: Negative C/S Radiculapathy - Right Upper limb tension test: Negative C/S Radiculapathy - Left Spurlings: Negative C/S Radiculapathy - Right Spurlings: Negative C/S Radiculapathy - Left Cervical distraction: Negative C/S Radiculapathy - Right Cervical distraction: Negative C/S Radiculapathy - Left Relief test: Negative - Goals Goal 1:: Patient to be Independant with HEP Goal Time Frame: 2-4 Weeks Goal 2:: Patient to be Independant with posture for ADL'S Goal Time Frame: 2-4 Weeks Goal 3:: Patient decrease cervical pain by 50% or greater to improve function with ADL'S Goal Time Frame: 2-4 Weeks Goal 4:: Patient to improve cervical ROM for function of recovery Goal Time Frame: 2-4 Weeks Goal 5:: Patient be able to perform ADLS',yoga and housework tasks with min limiations Goal Time Frame: 2-4 Weeks - Rehabilitation Potential Physical Therapy Diagnosis: This patient has cervical pain assymtrical central affects with pain with Cervical ROM ,function ,ADL'S thus benifit from skilled PT Rehabilitation Potential: Good - Anticipated Interventions Patient/Client Instruction: Educate patient on: Condition, Plan of Care For the Purpose of:: To decrease pain, To increase ROM, To improve muscle performance and motor function, To improve ability to perform ADL's, To increase tolerance to activity/condition/position, To improve performance and independence with ADL's, To improve ability of physical actions for home/community/work/leisure, To improve health of tissue, To decrease soft tissue restriction, To increase flexibility/ROM, To improve ability to perform tasks related to life management Therapeutic Exercise to Include: Strength training, Power training, Postural training, Flexibilty training, Active ROM For the Purpose of:: To decrease pain, To increase ROM, To improve muscle performance and motor function, To improve ability to perform ADL's, To increase tolerance to activity/condition/position, To improve performance and independence with ADL's, To improve ability of physical actions for home/community/work/leisure, To improve health of tissue, To decrease soft tissue restriction, To increase flexibility/ROM, To reduce risk of recurrence, To improve ability to perform tasks related to life management TENS: Yes IF ES: Yes Cryotherapy (ice pack, ice massage): Yes Thermo therapy (hot pack): Yes Ultrasound (thermal/non thermal): Yes Intermittent cervical traction: Yes For the Purpose of:: To decrease pain, To increase ROM, To improve nutrient delivery to tissue, To increase oxygenation perfusion, To improve health of tissue, To decrease soft tissue restriction Thank you for the opportunity to evaluate your patient. For Medicare and Medicare HMO plans, please review the plan of care and approve it. It will need to be FAXED BACK to us at [phone] for Medicare purposes. Please let me know if there are questions or concerns regarding this plan of care. Physician Signature: Date: <Electronically signed by Josep Quintanilla PT, Cert. ANGELA, OCS> 06/16/17 1056 CC: Tereso Abrams MD FOREST Signed For Medicare only, by signing this I certify the plan of care. Physicians Signature Date CERV SPINE 4 OR 5 Observed: 06/09/2017 Status: F Source: [place] VIEWS 11:03 AM [facility] REPOSITORY [facility] Imaging Services [address] [place], [place] [address] [address] Cerv Spine 4 or 5 Views MR#: [id number] Acct: [id number] Name: DEANA LYNN Rep #: [id number] : 1940 F 76 From: Elie Newman MD PCP: Tereso Abrams MD Status: REG CLI Study: Cerv Spine 4 or 5 Views Date of Exam: 06/09/17 Exam# [id number] Ordering Dr: Jose Abrams MD STUDY: X-RAY - CERVICAL SPINE REASON FOR EXAM: Female, 76 years old. Chronic neck pain. TECHNIQUE: 6 view(s) of the cervical spine were obtained including oblique views. COMPARISON: None FINDINGS: Normal anterior atlantoaxial articulation. Normal odontoid process. Normal cervical lordosis. There is multi-level endplate spondylosis. There is multi-level degenerative disc disease with multilevel disc space narrowing. Facet joint osteoarthritis. There is evidence for neural foraminal stenosis at the right C4-C5 and C5-C6 levels. The soft tissue structures are unremarkable. RAD/Cerv Spine 4 or 5 Views IMPRESSION: Multilevel spondylosis and disc space narrowing. 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 Electronically Signed: Elie Newman MD at 11:22 EDT Tel [phone], Service support , CC: Tereso Abrams MD Diesel Crane Operator: Signed BASIC METABOLIC Collected: 06/06/2017 Status: F Source: [place] PROFILE (BMP) 3:07 PM [facility] REPOSIT[facility] Order Comment: Order Date: 05/17/17 Order Info: 0667-1 - BMP TYPE CODE TESTS RESULT OUT OF RANGE REFERENCE UNITS LAB L501.0100 74-106 mg/dL Normal GLU 81 Result Comment: Please note revised GLUCOSE reference range effective 2017. LAB L501.1000 7-18 mg/dL Normal BUN 12 LAB L501.1100 0.55-1.02 mg/dL Normal CREAT,SERUM 0.62 Result Comment: The validity of the calculated GFR AND GFRAA in patients over 70 years has not been determined. Clinical correlation is essential. LAB L501.1110 >60 mL/min Normal EST GFR 101 Result Comment: Non- GFR Calc LAB L501.1115 >60 mL/min Normal EST GFR - AA 122 Result Comment: GFR Calc LAB L501.1300 10-20 RATIO Normal BUN/CRE 19.5 LAB L501.2200 8.5-10.1 mg/dL CA Normal 8.7 LAB L501.5300 136-145 mmol/L NA Normal 138 LAB L501.5600 3.5-5.1 mmol/L K Normal 3.6 LAB L501.5900 98-107 mmol/L CL Normal 102 LAB L501.6100 21.0-32.0 mmol/L Normal CO2 29.0 LAB L501.6200 5-15 Normal GAP 7 Performed By: #### L500.2500 #### [facility] [address] [place], [address] DEXA BONE DENSITY Observed: 05/24/2017 Status: F Source: [place] STUDY 9:14 AM [facility] REPOSITORY [facility] Imaging Services [address] [place] [address] Dexa Bone Density Study MR#: [id number] Acct: [id number] Name: DEANA LYNN Rep #: [id number] : 1940 F 76 From: Elie Newman MD PCP: Tereso Abrams MD Status: REG CLI Study: Dexa Bone Density Study Date of Exam: 05/24/17 Exam# [id number] Ordering Dr: Jose Abrams MD STUDY: DUAL ENERGY X-RAY ABSORPTIOMETRY / DXA REASON FOR EXAM: Female, 76 years old. The patient is postmenopausal. Loss of height. TECHNIQUE: Bone Mineral Density (BMD) measurements of lumbar spine and bilateral hips were obtained. COMPARISON: Comparison is made with prior study dated January 14, 2015. FINDINGS: Lumbar Spine (L1-L4): g/cm2 (0.788) / T-score (-3.2) / Z-score (-1.4) Findings are suggestive of osteoporosis with a high fracture risk. Left Femur Total: g/cm2 (0.799) / T-score (-1.7) / Z- score (0.1) Left Femoral Neck: g/cm2 (0.717) / T-score (-2.3) / Z- score (-0.4) Right Femur Total: g/cm2 (0.788) / T-score (-1.7) / Z- score (0.0) Right Femoral Neck: g/cm2 (0.739) / T-score (-2.2) / Z-score (-0.2) The T-Scores on the most recent prior examination were: Lumbar Spine (L1-L4): There has been improvement of bone density since the previous examination. Left Femur Total: which represents an improvement of 5.0%. Right Femur Total: which represents an improvement of 4.9%. BD/Dexa Bone Density Study IMPRESSION: The patient is considered osteoporotic at the level of the lumbar spine as outlined below according to World Brian Organization (WHO) criteria with a high fracture risk. There has been improvement of bone density since the previous examination. Reference Information: The T-score is the number of standard deviations above or below the standard which is normal for young adults at their peak bone mineral density. The World Health Organization (WHO) interprets the T-scores as follows: Above -1 Normal bone density Between -1 and -2.5 Osteopenia Equal to / or below -2.5 Osteoporosis As a practical clinical guideline, osteopenia may be graded as follows: Mild -1 through -1.5 Moderate -1.6 through -2.0 Severe -2.1 through -2.4 The Z-score is the number of standard deviations above or below age-matched controls. A Z-score of less than -1.5 would be considered abnormal. References: 1. NIH Osteoporosis and Related Bone Diseases http://www.osteo.org 2. International Society for Clinical Densitometry http://www.iscd.org 3. National Osteoporosis Foundation http://www.nof.org Electronically Signed: Elie Newman MD at 13:27 EDT Tel [phone], Service support , CC: Tereso Abrams MD Diesel Crane Operator: Signed SCREENING MAMM (CAD), Observed: 05/24/2017 Status: F Source: [facility] 8:38 AM [facility] REPOSITORY [facility] Imaging Services [address] [place], [place] [address] [address] SCREENING MAMM (CAD), BILAT MR#: [id number] Acct: [id number] Name: DEANA LYNN Rep #: [id number] : 1940 F 76 From: Elie Newman MD PCP: Tereso Abrams MD Status: REG CLI Study: SCREENING MAMM (CAD), BILAT Date of Exam: 05/24/17 Exam# [id number] Ordering Dr: Jose Abrams MD MAMMOGRAPHY - BILATERAL SCREENING REASON FOR EXAM: Female, 76 years old. Routine annual screening examination. PERTINENT HISTORY: Aunt with breast cancer. TECHNIQUE: Digital bilateral breast linda (3D mammographic acquisition) in the CC and MLO projections. 2-D mediolateral oblique (MLO) and craniocaudad (CC) views of both breasts were obtained. CAD: Full Field Digital Mammography with Computer Added Detection was performed. COMPARISON: Comparison is made with prior study dated April 05, 2016 and January 14, 2015. FINDINGS: Breast Composition: The breasts are heterogeneously dense, which may obscure small masses. There are no dominant masses or suspicious calcifications. No other significant abnormalities are identified. There has been no significant change since the prior study. HPBI/SCREENING MAMM (CAD), BILAT IMPRESSION: Stable bilateral screening mammogram. Yearly follow-up mammogram recommended. (A) ASSESSMENT CATEGORY: BIRADS Category 1: Negative. A letter regarding these results will be sent to the patient by the facility within 30 days. Approximately 10% of breast cancers are not detected by mammography. A normal mammogram should not delay biopsy of a clinically suspicious abnormality. [id number] Electronically Signed: Elie Newman MD at 9:50 EDT Tel [phone], Service support , CC: Tereso Abrams MD Diesel Crane Operator: Signed CAROTID DUPLEX Observed: 05/23/2017 Status: F Source: [place] ULTRASOUND 10:10 PM [facility] REPOSITORY [facility] Cardiovascular Services [address] [place] [address] Carotid Duplex Ultrasound 05/19/17 1006 MR#: [id number] Acct: [id number] Name: DEANA LYNN Rep #: [id number] : 1940 76 From: Raúl Gregory MD Attending Dr: Tereso Abrams MD Status: REG CLI Ordering Dr: Jose Abrams MD Date: 05/19/17 Location: [facility] Sex: F C Admitted: Reason For Study: Carotid stenosis Rt. Velocities/BP Lt. Velocities/BP Prox CCA 87.4/18.2 cm/sec. Prox CCA 111.0/21.1 cm/sec. Mid CCA 82.7/16.4 cm/sec. Mid CCA 81.5/22.3 cm/sec. Dist CCA 75.6/17.6 cm/sec. Dist CCA 76.8/19.3 cm/sec. Prox ICA 58.6/18.2 cm/sec. Prox ICA 56.9/19.3 cm/sec. Mid ICA 76.8/21.7 cm/sec. Mid ICA 68.0/23.5 cm/sec. Dist ICA 76.8/24.0 cm/sec. Dist ICA 72.7/23.5 cm/sec. Rt. ICA/CCA = .93. Lt. ICA/CCA = .89. Prox ECA 56.9/10.0 cm/sec. Prox ECA 63.9/9.4 cm/sec. Rt. Vert. 61.6/15.8 cm/sec. Lt. Vert. 62.1/18.8 cm/sec. Right Extracranial There is intimal thickening but no significant atherosclerotic plaque noted in the right common carotid artery. There is no significant atherosclerotic plaque noted in the right internal carotid artery. There is no significant atherosclerotic plaque noted in the right external carotid artery. Antegrade flow is noted in the right vertebral artery. Left Extracranial There is intimal thickening but no significant atherosclerotic plaque noted in the left common carotid artery. There is no significant atherosclerotic plaque noted in the left internal carotid artery. There is no significant atherosclerotic plaque noted in the left external carotid artery. Antegrade flow is noted in the left vertebral artery. Procedure Carotid Duplex 60101. Exam performed in department. Interpretation Summary No significant atherosclerotic plaque or stenosis noted in the internal carotid arteries bilaterally. Flow within the vertebral arteries is antegrade bilaterally. Ordering Physician: Tereso Abrams Referring Physician: Tereso Abrams Performed By: Odette Salvador RVT 05/23/172208 Date Raúl Gregory MD CC: Tereso Abrams MD Date Dictated: 05/19/17 1006 Date Transcribed: 05/23/172208 Diesel Crane Operator: Signed BASIC METABOLIC Collected: 05/16/2017 Status: F Source: [place] ([facility]) 1:58 PM [facility] RE[facility] Order Comment: Order Date: 05/04/17 Order Info: 0667-1 - [facility] TYPE CODE TESTS RESULT OUT OF RANGE REFERENCE UNITS LAB L501.0100 74-106 mg/dL Low GLU 72 Result Comment: Please note revised GLUCOSE reference range effective 2017. LAB L501.1000 7-18 mg/dL Normal BUN 10 LAB L501.1100 0.55-1.02 mg/dL Normal CREAT,SERUM 0.67 Result Comment: The validity of the calculated GFR AND GFRAA in patients over 70 years has not been determined. Clinical correlation is essential. LAB L501.1110 >60 mL/min Normal EST GFR 92 Result Comment: Non- GFR Calc LAB L501.1115 >60 mL/min Normal EST GFR - AA 111 Result Comment: GFR Calc LAB L501.1300 10-20 RATIO Normal BUN/CRE 15.0 LAB L501.2200 8.5-10.1 mg/dL CA Normal 9.2 LAB L501.5300 136-145 mmol/L NA Normal 141 LAB L501.5600 3.5-5.1 mmol/L Low K 3.3 LAB L501.5900 98-107 mmol/L CL Normal 102 LAB L501.6100 21.0-32.0 mmol/L Normal CO2 32.0 LAB L501.6200 5-15 Normal GAP 7 Performed By: #### L500.2500 #### [facility] [address] [place] [address]. [place], [address] BASIC METABOLIC Collected: 05/03/2017 Status: F Source: [place] ([facility]) 11:23 AM [facility] RE[facility] TYPE CODE TESTS RESULT OUT OF RANGE REFERENCE UNITS LAB L501.0100 74-106 mg/dL Normal GLU 76 Result Comment: Please note revised GLUCOSE reference range effective 2017. LAB L501.1000 7-18 mg/dL Normal BUN 12 LAB L501.1100 0.55-1.02 mg/dL Normal CREAT,SERUM 0.64 Result Comment: The validity of the calculated GFR AND GFRAA in patients over 70 years has not been determined. Clinical correlation is essential. LAB L501.1110 >60 mL/min Normal EST GFR 97 Result Comment: Non- GFR Calc LAB L501.1115 >60 mL/min Normal EST GFR - AA 117 Result Comment: GFR Calc LAB L501.1300 10-20 RATIO Normal BUN/CRE 18.8 LAB L501.2200 8.5-10.1 mg/dL CA Normal 8.6 LAB L501.5300 136-145 mmol/L NA Normal 140 LAB L501.5600 3.5-5.1 mmol/L Low K 2.9 LAB L501.5900 98-107 mmol/L CL Normal 106 LAB L501.6100 21.0-32.0 mmol/L Normal CO2 29.0 LAB L501.6200 5-15 Normal GAP 5 Performed By: #### L500.2500, L501.9520 #### [facility] [address] [place], [address] THYROID STIM HORMONE Collected: 05/03/2017 Status: F Source: [place] ([facility]) 11:23 AM [facility] RE[facility] TYPE CODE TESTS RESULT OUT OF RANGE REFERENCE UNITS LAB L501.9520 0.358-3.74 uIU/mL Normal TSH 2.78 Performed By: #### L500.2500, L501.9520 #### [facility] [address] [place], [address] PTHIN Collected: 05/03/2017 Status: F Source: [place] 11:23 AM [facility] TYPE CODE TESTS RESULT OUT OF RANGE REFERENCE UNITS LAB L509.1000 18.4-80.1 pg/mL Normal PTHIN 73.7 Result Comment: Please Note: PTH INTACT METHOD AND REFERENCE RANGE CHANGE Effective 02/09/2017. Performed By: #### L509.1000 #### [facility] [address] [place], [address] VITAMIN D,25 HYDROXY Collected: 05/03/2017 Status: F Source: [place] 11:23 AM [facility] TYPE CODE TESTS RESULT OUT OF RANGE REFERENCE UNITS LAB L506.1000 29.95-100.01 ng/mL Normal Vitamin D 36.2 25-OH Result Comment: Vitamin D 25(OH) Status Range Deficiency <20 ng/mL (50nmol/L) Insuffciency 20 - 30 ng/mL (50 - 75 nmol/L) Sufficiency 30 - 100 ng/mL (75 - 250 nmol/L) Toxicity >100 ng/mL (>250 nmol/L) Performed By: #### L506.1000 #### [facility] [place], [address] CALCIUM IONIZED Collected: 05/03/2017 Status: F Source: ADELINE 11:23 AM [facility] REPOSITORY TYPE CODE TESTS RESULT OUT OF RANGE REFERENCE UNITS LAB L3100.9600 4.5-5.6 mg/dL Normal IONIZED CA 5.1 Result Comment: Performed at: [facility] [id number] Accountant Manager: Terry Rogers PhD, Phone: [phone] Performed By: #### L3100.9600 #### [facility] (refer to report for specific site) refer to report for address and phone number ALLERGIES ALLERGIES DATE TYPE / CODE NAME / CODE REACTION SEVERITY SOURCE 02/02/2018 Drug Penicillins/F0 Rash Unknown [facility] Allergy/299600009(S [id number](RXNOR [facility] NOMED CT) M) Hospital Repository 02/02/2018 Drug Sulfa Rash Unknown [place] Allergy/[id number](S (Sulfonamide [facility] NOMED CT) Antibiotics)/F Hospital [id number](RXNO Repository RM) 01/09/2018 Miscellaneous FLOURIDE Rash Unknown [place] Allergy/906238231(S [facility] NOMED CT) Hospital Repository 01/09/2018 Miscellaneous cough syrup Upset Stomach Unknown [facility] ENCOUNTERS ENCOUNTERS ADMIT/DISCHARGE ACCOUNT ADMITTING ENCOUNTER LOCATION SOURCE NUMBER CLASS 02/02/2018/ [id number] Ambulatory BMSBuilding:B [place] 8 7 [facility] Repository 01/17/2018 [id number] Ambulatory [place] [facility] 8 [facility] ing:MFPLAB Repository 01/09/2018 [id number] Ambulatory BMSBuilding:W [place] 3 [facility] Repository 01/09/2018/ [id number] Elier Gordon Ambulatory [place] 8 1 [facility] ing:PCURoom: Repository [id number]: [id number] 01/09/2018 [id number] Elier Gordon Ambulatory BMSBuilding:B [place] 2 [facility] Repository 01/09/2018 [id number] Evan Elier Ambulatory BMSBuilding:B [place] 4 [facility] Repository 11/28/2017 [id number] Ambulatory [place] [facility] 3 [facility] ing:MFPLAB Repository 10/17/2017/ [id number] Ambulatory BMSBuilding:B [place] 8 2 [facility] Repository 10/11/2017 [id number] Ambulatory BMSBuilding:B [place] 8 [facility] Repository 07/12/2017/ [id number] Ambulatory [place] 8 8 [facility] ing:PT Repository 06/09/2017 [id number] Ambulatory [place] 4 [facility] ing:MTRAD Repository 06/06/2017 [id number] Ambulatory [place] [facility] 1 [facility] ing:MFPLAB Repository 05/24/2017 [id number] Ambulatory [place] 0 [facility] ing:OPBD Repository 05/19/2017 [id number] Ambulatory [place] 5 [facility] ing:CVS Repository 05/16/2017 [id number] Ambulatory [place] [facility] 5 [facility] ing:MFPLAB Repository 05/03/2017 [id number] Ambulatory [place] 4 [facility] ing:MFPLAB Repository PAYERS PAYERS ENCOUNTER GUARANTOR PAYER SUBSCRIBER SOURCE 02/02/2018 DEANA J Primary DEANA J [place] [id number] [facility] MODER[facility]: [facility] Number: [id number], [id number] Repository [place] [address]Qvy: Date:2843-13-10BB [address]CYBLANCA ISSA (DX) [address]WP: 02/02/2018 Secondary NOT GIVENUNK [place] Insurance:SELF PAY [facility] Number: Effective Repository Date:2018-02-02 01/17/2018 DEANA J Primary DEANA J [place] [id number] Insurance:AETJIN BUSH MODERDOB: [facility] Number: [id number], [id number] [place]ository [place] [address]Bhh: Date:1464-72-19FH [address] [place] () [address]ND: 01/17/2018 Secondary NOT GIVENUNK [place] Insurance:SELF PAY [facility] Number: Effective Repository Date:2018-01-17 01/09/2018 DEANA J Primary DEANA J [place] [id number] Insurance:AECHENG BUSH MODERDOB: [facility] Number: [id number] [facility], [id number] Repository [place] [address]Tnp: Date:4252-74-68OS [address] [place] () [address]FY: 01/09/2018 Secondary NOT GIVENUNK [place] Insurance:SELF PAY [facility] Number: Effective Repository Date:2018-01-09 01/09/2018 DEANA J Primary DEANA J [place] [id number] Insurance:AECHENG BUSH MODERDOB: [facility] Number: [id number] [facility], [id number] Repository [place] [address]Nqm: Date:7535-71-37BA [address] [place] () [address]GB: 01/09/2018 Secondary NOT GIVENUNK [place] Insurance:SELF PAY [facility] Number: Effective Repository Date:2018-01-09 01/09/2018 DEANA J Primary DEANA J [place] [id number] Insurance:AETNA RACHELLE MODERDOB: [facility] Number: [id number] [facility], [id number] [place]ository [place] [address]Xis: Date:2028-50-45MP [address]RYBLANCA ISSA (HP) [address]IF: 01/09/2018 Secondary NOT GIVENUNK [place] Insurance:SELF PAY [facility] Number: Effective Repository Date:2018-01-09 01/09/2018 DEANA J Primary DEANA J [place] [id number] Insurance:AETNA [facility] MODERDOB: [facility] Number: [id number] [facility] Medical Center[address], [id number] [place]ository [place] [address]Pfy: Date:7550-65-04WW [address]YFBLANCA ISSA (HP) [address]FY: 01/09/2018 Secondary NOT GIVENUNK [place] Insurance:SELF PAY [facility] Number: Effective Repository Date:2018-01-09 11/28/2017 DEANA J Primary DEANA J [place] [id number] Insurance:AETNA [facility] MODERDOB: [facility] Number: [id number] [facility], [id number] Repository [place] [address]Nqp: Date:4340-52-46HP [address]ERBLANCA ISSA (HP) [address]BF: 11/28/2017 Secondary NOT GIVENUNK [place] Insurance:SELF PAY [facility] Number: Effective Repository Date:2017-11-28 10/17/2017 DEANA J Primary DEANA J [place] [id number] Insurance:AETNA [facility] MODERDOB: [facility] Number: [id number] [facility] Medical Center[address], [id number] Repository [place] [address]Sus: Date:6724-04-78LV [address]BLANCA ISSA (HP) [address]UB: 10/17/2017 Secondary NOT GIVENUNK [place] Insurance:SELF PAY [facility] Number: Effective Repository Date:2017-02-04 10/11/2017 Deana J Primary Deana J [place] [id number] Insurance:AETNA RACHELLE ModerDOB: [facility] Number: [id number] [facility] Medical Center[address], [id number] [place]ository [place] [address]Dpn: Date:1409-60-64YK [address] BLANCA ADAME () [address]LB: 10/11/2017 Secondary NOT GIVENUNK [place] Insurance:SELF PAY [facility] Number: Effective Repository Date:2017-10-11 2017 Deana J Primary Deana J [place] [id number] Insurance:AECHENG BUSH ModerDOB: [facility] Number: [id number] [facility], [id number] Repository [place] [address]Zod: Date:5690-21-35PZ [address] BLANCA ADAME () [address]SA: 2017 Secondary NOT GIVENUNK [place] Insurance:SELF PAY [facility] Number: Effective Repository Date:2017-06-13 06/09/2017 Deana J [id number] Primary Deana J [place] MEMORY Insurance:AETNA RACHELLE ModerDOB: [facility] Number: [id number] Hospital [address]Xts: [id number] Repository [phone] Date:1119-92-43TS [id number] BLANCA ADAME [address]XS: 06/09/2017 Secondary NOT GIVENUNK [place] Insurance:SELF PAY [facility] Number: Effective Repository Date:2017-06-09 06/06/2017 Deana J [id number] Primary Deana J [place] MEMORY Insurance:AETNA [facility] ModerDOB: [facility] Number: [id number] Hospital [address]Qzi: [id number] Repository [phone] Date:6024-13-96UQ [address] (HP) [address] [address]XA: 06/06/2017 Secondary NOT GIVENUNK [place] Insurance:SELF PAY [facility] Number: Effective Repository Date:2017-06-06 05/24/2017 Deana J [id number] Primary Deana J [place] MEMORY Insurance:AETNA MCR ModerDOB: [facility], [facility] Number: [id number] Hospital [address]Gvx: [id number] Repository [phone] Date:5286-95-74[address] (HP) [address] [address]TE: 05/24/2017 Secondary NOT GIVENUNK Ad[place] Insurance:SELF PAY [facility] Number: Effective Repository Date:2017-04-27 05/19/2017 Deana J [id number] Primary Deana J [place] MEMORY Insurance:AETNA MCR ModerDOB: [facility], [facility] Number: [id number] Hospital [address]Oeo: [id number] Repository [phone] Date:6411-90-86NJ [address] (HP) [address] [address]DU: 05/19/2017 Secondary NOT GIVENUNK [place] Insurance:SELF PAY [facility] Number: Effective Repository Date:2017-05-06 05/16/2017 Deana J [id number] Primary Deana J [place] MEMORY Insurance:AETNA MCR ModerDOB: [facility], [facility] Number: [id number] Hospital [address]Dnd: [id number] Repository [phone] Date:5237-42-53NJ [address] (HP) [address] [address]DD: 05/16/2017 Secondary NOT GIVENUNK [place] Insurance:SELF PAY [facility] Number: Effective Repository Date:2017-05-16 05/03/2017 Deana J [id number] Primary Deana J [place] Memory Insurance:AETNA RACHELLE ModerDOB: [facility] indy [facility] Number: [id number] Hospital [address]Fah: [id number] Repository [phone] Date:7044-57-74EA [address]V BLANCA ADAME [address]HY: 05/03/2017 Secondary NOT GIVENUNK Ad[place] Insurance:SELF PAY [facility] Number: Effective Repository Date:2017-05-03
== END ==
PROVIDERS: Family Provider Family Medicine; PCP Family Medicine; Visit Provider Family Medicine
DX: G45.4 Transient global amnesia (principal); E03.9 Hypothyroidism, unspecified; R00.2 Palpitations
CPT/HCPCS: 36415; 80048; 82306; 82607; 83735; 84443; 85027; 85652

== ENCOUNTER → 2018-04-03 09:17 | Outpatient (CLI) | payer MEDICARE, SELFPAY ==
[2018-03-15 13:23] VITALS: BMI 22.0
--- NOTE | 2018-04-03 09:40 | RAD_ITS ---
STUDY: X-RAY - LUMBAR SPINE REASON FOR EXAM: Female, 77 years old. Pain x2 weeks, no known injury TECHNIQUE: 5 view(s) of the lumbar spine were obtained. COMPARISON: None FINDINGS: Normal lumbar lordosis. There is no substantial scoliosis. There is a normal alignment of the vertebrae. There is mild diffuse endplate spondylosis. There is mild compression deformity of indeterminate age of the superior endplate of L2. There is old compression deformity with anterior wedging of T12. There is multilevel disc space narrowing. The soft tissue structures are unremarkable. RAD/L/S Spine Min 4 Views IMPRESSION: Mild compression deformity of the superior endplate of L2 which is of indeterminate age. Old compression deformity with anterior wedging of T12. Multilevel disc space narrowing and endplate spondylosis. There are calcified plaques of the abdominal aorta. Electronically Signed: Juan Pablo Smith MD at 17:29 EST , Service support ,
[2018-04-03 12:36] LABS: Absolute Lymphocyte Count 0.93 X10^3/ul (0.83-4.51); Absolute Neutrophil Count 3.2 X10^3/uL (2.0-7.7); Basophil# 0.05 X10^3/uL; Basophil% 1.1 % (0-1); Eosinophils% 2.1 % (0-5); Hematocrit 39.8 % (37-47); Hemoglobin 12.9 g/dl (12.0-15.0); Lymphocyte # 0.93 X10^3/ul (4.0); Lymphocyte % 19.9 % (19-41); Mean Corp Hgb Conc 32.4 g/gl (32-36); Mean Corpuscular Hgb 29.7 pg (27.0-32.0); Mean Corpuscular Volume 91.7 fL (81-99); Mean Platelet Vol. 9.9 fl (6.2-12.0); Monocyte% 8.5 % (0-10); Neutrophil # 3.18 X10^3/uL (2.7-7.7); Platelet Count 265 K/mm3 (150-450); RBC Distribution Width SD 43.4 fl (35.1-43.9); Red Blood Count 4.34 M/mm3 (4.2-5.4); White Blood Count 4.7 K/mm3 (4.4-11.0)
[2018-04-03 12:42] LABS: POSITIVE COUNT NO; POSITIVE DIFFERENTIAL NO; POSITIVE MORPHOLOGY NO
[2018-04-03 12:43] LABS: Erythrocyte Sedimentation Rate 9 mm/hr (0-30)
== END ==
PROVIDERS: Family Provider Family Medicine; PCP Family Medicine; Referring Provider Family Medicine; Visit Provider Family Medicine
DX: M54.5 Low back pain (principal)
CPT/HCPCS: 36415; 72110; 85025; 85652

== ENCOUNTER → 2018-05-02 10:11 | Outpatient (CLI) | payer MEDICARE, SELFPAY ==
[2018-03-15 13:23] VITALS: BMI 22.0
--- NOTE | 2018-05-02 10:15 | RAD_ITS ---
STUDY: X-RAY - THORACIC SPINE REASON FOR EXAM: Female, 77 years old. Been painting recently with marked pain between shoulder blades. TECHNIQUE: 3 view(s) of the thoracic spine were obtained. COMPARISON: Chest, November 07, 2015. Lumbar spine, April 03, 2018. FINDINGS: Normal kyphosis of the thoracic spine. There is a stable scoliotic curvature of the thoracic spine. There is demineralization of the thoracic spine with endplate spondylosis. There is multilevel disc space narrowing of the thoracic spine. There is marked compression deformities of the superior endplates of L1 and L2 with a mild compression deformities of the T7, T10 and T12 vertebral bodies not previously seen. The remaining of the vertebral axial heights are maintained. The soft tissue structures are unremarkable. RAD/Thoracic Spine 2 Views IMPRESSION: Mild compression deformities of the mid to lower thoracic spine with osteopenia and diffuse degenerative disc disease. Acuity is not certain however these are not seen on chest x-ray of November 07, 2015. The compression deformities of T12 and L2 were noted on a lumbar spine study of April 03, 2018 although both appear mildly advanced. Electronically Signed: Jerod Zimmer DO at 17:12 EDT Tel [phone], Service support ,
== END ==
PROVIDERS: Family Provider Family Medicine; PCP Family Medicine; Referring Provider Family Medicine; Visit Provider Family Medicine
DX: M54.6 Pain in thoracic spine (principal)
CPT/HCPCS: 72070

== ENCOUNTER → 2018-05-09 10:26 | Outpatient (CLI) | payer MEDICARE, SELFPAY ==
[2018-03-15 13:23] VITALS: BMI 22.0
[2018-05-09 13:04] LABS: Vitamin D,25 Hydroxy 59.7 ng/mL (29.95-100.01)
[2018-05-09 13:06] LABS: PTHIN 35.1 pg/mL (18.4-80.1)
[2018-05-09 13:19] LABS: ALB/GLOB Ratio 1.2 RATIO (0.9-2.4); AST(SGOT) 21 U/L (15-37); Alanine Aminotransfer ALT/SGPT 37 U/L (13-56); Albumin, Serum 3.8 g/dL (3.2-5.0); Alkaline Phosphatase 265 U/L (45-117); Anion Gap 8 (5-15); BUN 14 mg/dL (7-18); BUN/Creat Ratio 22.2 RATIO (10-20); Calcium,Total 9.4 mg/dL (8.5-10.1); Chloride 103 mmol/L (98-107); Creatinine, Serum 0.63 mg/dL (0.55-1.02); EST Glomerular Filtration Rate 97 mL/min (>60); Est Glom Filt Rate - Afr Amer 118 mL/min (>60); Globulin 3.3 g/dL (2.2-4.2); Glucose 84 mg/dL (74-106); Phosphorus 4.1 mg/dL (2.5-4.9); Potassium 3.3 mmol/L (3.5-5.1); Protein, Total 7.1 g/dL (6.4-8.2); Sodium Level 138 mmol/L (136-145); Thyroid Stim Hormone (TSH) 3.11 uIU/mL (0.358-3.74)
== END ==
PROVIDERS: Family Provider Family Medicine; PCP Family Medicine; Referring Provider Family Medicine; Visit Provider Family Medicine
DX: M81.0 Age-related osteoporosis without current pathological fracture (principal); E03.9 Hypothyroidism, unspecified
CPT/HCPCS: 36415; 80053; 82306; 82330; 83735; 83970; 84100; 84443

== ENCOUNTER → 2018-05-13 07:11 | Outpatient (CLI) | payer MEDICARE, SELFPAY ==
[2018-03-15 13:23] VITALS: BMI 22.0
--- NOTE | 2018-05-13 07:31 | MRI_ITS ---
STUDY: MRI THORACIC SPINE WITHOUT CONTRAST REASON FOR EXAM: Female, 77 years old. compression fx, c/o pain betweeen scapulae TECHNIQUE: Standardized fat and water weighted pulse sequences were obtained in the sagittal and axial planes. COMPARISON: X-ray dated May 02, 2018 FINDINGS: There is an increased kyphosis of the thoracic spine. T1-2, T2-3, T3-4, T4-5, T5-6, T6-7, T7-8, T8-9, T9-10, T10-11, T11-12: There is diffuse disc space narrowing and endplate spondylosis. There is mild superior endplate fracture and edema at T6. There is mild compression fracture and edema at T7. There is mild superior endplate fracture and edema at T8. There is mild compression fracture and edema at T9. There is moderate compression fracture and edema at T10. There is mild compression fracture and edema at T11. There is moderate compression fracture at and edema T12. There is mild superior endplate fractures at L1 and L2. There is no retropulsion. Normal visualized thoracic cord. The soft tissue structures are unremarkable. MRI/Spine Thoracic (Routine) IMPRESSION: Multiple acute mild/moderate fractures without retropulsion. Electronically Signed: Venita Mayo MD at 8:28 EDT Tel , Service support ,
== END ==
PROVIDERS: Family Provider Family Medicine; PCP Family Medicine; Referring Provider Family Medicine; Visit Provider Family Medicine
DX: S22.000A Wedge compression fracture of unspecified thoracic vertebra, initial encounter for closed fracture (principal)
CPT/HCPCS: 72146

== ENCOUNTER → 2018-06-29 07:29 | Outpatient (CLI) | payer MEDICARE, SELFPAY ==
[2018-03-15 13:23] VITALS: BMI 22.0
--- NOTE | 2018-06-29 07:33 | BI_ITS ---
MAMMOGRAPHY - BILATERAL SCREENING REASON FOR EXAM: Female, 77 years old. Routine annual screening examination. PERTINENT HISTORY: Aunt with breast cancer. TECHNIQUE: Digital bilateral breast linda (3D mammographic acquisition) in the CC and MLO projections. 2-D mediolateral oblique (MLO) and craniocaudad (CC) views of both breasts were obtained. CAD: Full Field Digital Mammography with Computer Added Detection was performed. COMPARISON: Comparison is made with prior study dated May 24, 2017 and April 05, 2016. FINDINGS: Breast Composition: The breasts are heterogeneously dense, which may obscure small masses. There are no dominant masses or suspicious calcifications. No other significant abnormalities are identified. There has been no significant change since the prior study. BI/SCREENING MAMM (CAD), BILAT IMPRESSION: Stable bilateral screening mammogram. Yearly follow-up mammogram recommended. (A) ASSESSMENT CATEGORY: BIRADS Category 1: Negative. A letter regarding these results will be sent to the patient by the facility within 30 days. Approximately 10% of breast cancers are not detected by mammography. A normal mammogram should not delay biopsy of a clinically suspicious abnormality. [id number] Electronically Signed: Elie Newman, at 10:35 EDT , Service support ,
== END ==
PROVIDERS: Family Provider Family Medicine; PCP Family Medicine; Referring Provider Family Medicine; Visit Provider Family Medicine
DX: Z12.31 Encounter for screening mammogram for malignant neoplasm of breast (principal)
CPT/HCPCS: 77063; 77067

== ENCOUNTER 2018-07-13 10:00 | Outpatient (RCR) | payer MEDICARE, SELFPAY ==
[2018-03-15 13:23] VITALS: BMI 22.0
--- NOTE | 2018-05-17 09:08 | HP.PTEVAL_ITS ---
Patient's Visit Information DEANA LYNN is a 77 year old F referred to Physical Therapy by Jose Abrams MD with a diagnosis of T/S pain. Date of Evaluation: 05/17/18 Physical Therapist: Martínez Mei PT, ATC - Visit Plan Frequency: 2-3x /Week Duration: 3 Weeks Plan: Postural education, core strengthening in neutral spine, LE strengthening, nustep, and HEP - Subjective Findings: Pt reports she has had mid back since February of 2018. Pt reprts she was painting her basement when she twisted the wrong way and felt severe pain. Pt reports she had xrays which revealed a compression fracture. Pt reports she w as referred to pain management where she was given a cortisone injection. Pt reports the pain worsened, so she went back to her doctor and received more xrays which revealed several other fractures in her mid back. Pt reports she is in so much pain now that she can barely move without pain. Pt reports she has been receiving an injection for osteoporosis, but she skipped her last injection because it is very expensive and medicare wont cover it anymore. No LE tingling or numbness. Pt reports she must take pain meds to sleep through the night. 5/10 pain at rest, 10/10 pain at worst - Objective Neuro: B LE and UE sensation is WNL to light touch. MMT: B UE's and LE's are rated at 4-/5 and are mostly limited by pain. ROM: Pt is very limited with all ranges of motion throughout her spine secondary to pain. Gait: Pt is able to ambulate 500' until needing to rest secondary to pain - Goals Goal 1:: decrease back pain x 50% to aid with increasing tolerance for ambulation Goal Time Frame: 2-4 Weeks Goal 2:: Increase core stability x 1 grade to aid with IADL's Goal Time Frame: 2-4 Weeks Goal 3:: I with HEP Goal Time Frame: 2-4 Weeks - Rehabilitation Potential Physical Therapy Diagnosis: Pt has t/s pain, weakness, and intol for ambulation secondary to multi level compression fractures Rehabilitation Potential: Good - Anticipated Interventions Patient/Client Instruction: Educate patient on: Condition, Plan of Care For the Purpose of:: To improve self management Therapeutic Exercise to Include: Strength training, Endurance training, Body mechanics, Postural training, Dynamic Lumbar Stabilization For the Purpose of:: To decrease pain, To improve muscle performance and motor function Cryotherapy (ice pack, ice massage): Yes For the Purpose of:: To decrease pain Thank you for the opportunity to evaluate your patient. For Medicare and Medicare HMO plans, please review the plan of care and approve it. It will need to be FAXED BACK to us at [phone] for Medicare purposes. For Medicare only, by signing this I certify the plan of care. Please let me know if there are questions or concerns regarding this plan of care. Physician Signature: Date:
--- NOTE | 2018-06-12 10:28 | HP.PTREVAL ---
Jose Abrams MD, It has been my pleasure to treat DEANA LYNN over the last 9 visits for T/S pain. Please see the progress note below for an update on the physical therapy plan of care! Subjective: Pt feels like she has regressed a little since doing some house work Objective/Function: LBP was getting better until pt attempted to lift household boxes and became sore again. Core strength continues to improve as pt notes ADL's are getting easier. Pt is progressing well toward Rx goals Plan Plan: cont with POC 2 x's per week x 4 weeks Goals Goal 1:: decrease back pain x 50% to aid with increasing tolerance for ambulation Goal Time Frame: 2-4 Weeks Goal Progress: Progressing Goal 2:: Increase core stability x 1 grade to aid with IADL's Goal Time Frame: 2-4 Weeks Goal Progress: Progressing Goal 3:: I with HEP Goal Time Frame: 2-4 Weeks Goal Progress: Progressing Anticipated Interventions Patient/Client Instruction: Educate patient on: Condition, Plan of Care For the Purpose of:: To improve self management Therapeutic Exercise to Include: Strength training, Endurance training, Body mechanics, Postural training, Dynamic Lumbar Stabilization For the Purpose of:: To decrease pain, To improve muscle performance and motor function Cryotherapy (ice pack, ice massage): Yes For the Purpose of:: To decrease pain Please do not hesitate to contact me at [phone] by phone or if you have questions or concerns regarding this new plan of care! Sincerely, Martínez Mei, PT, ATC
--- NOTE | 2018-07-13 10:40 | HP.PTDCSUM ---
HP - PT D/C Summary It has been my pleasure to treat DEANA LYNN under orders from Jose Abrams MD, for the diagnosis of T/S pain for a total of 16 visit(s). Discharge Date: Please see the following information for a summary of their discharge status. - Subjective Subjective: Pt reports she feels really good today - Pain Lumbar Spine Pain Intensity (Out of 10): 0 Thoracic Spine Pain Intensity (Out of 10): 0 - Overall Improvement % Improvement: 95 - Objective Objective/Function: 0/10 pain currently in the L/S and T/S. Pt can ambulate greater than 1000 feet without difficulty. Pt is I with HEP. Rx goals achieved - Goals Goal 1:: decrease back pain x 50% to aid with increasing tolerance for ambulation Goal Progress: Goal Met Goal 2:: Increase core stability x 1 grade to aid with IADL's Goal Progress: Goal Met Goal 3:: I with HEP Goal Progress: Goal Met - Plan Plan: Discharge - D/C Information If there are questions or concerns regarding this patient's physical therapy, please feel free to call me at [phone]. Thank you for the referral of this patient. Sincerely, Martínez Mei, PT, ATC
== END 2018-07-13 19:00 | disposition home or self-care (01) ==
LOC: PT 10:00
PROVIDERS: Family Provider Family Medicine; PCP Family Medicine; Referring Provider Family Medicine; Visit Provider Family Medicine
DX: M54.9 Dorsalgia, unspecified (principal)
CPT/HCPCS: 97110; 97161; 97530

== ENCOUNTER → 2018-08-22 09:37 | Outpatient (CLI) | payer MEDICARE, SELFPAY ==
[2018-08-22 09:01] VITALS: BMI 22.0
[2018-08-22 12:56] LABS: Anion Gap 6 (5-15); BUN 10 mg/dL (7-18); BUN/Creat Ratio 13.8 RATIO (10-20); Calcium,Total 8.7 mg/dL (8.5-10.1); Chloride 105 mmol/L (98-107); Creatinine, Serum 0.72 mg/dL (0.55-1.02); EST Glomerular Filtration Rate 83 mL/min (>60); Est Glom Filt Rate - Afr Amer 101 mL/min (>60); Glucose 69 mg/dL (74-106); Potassium 4.1 mmol/L (3.5-5.1); Sodium Level 138 mmol/L (136-145)
== END ==
PROVIDERS: Family Provider Family Medicine; PCP Family Medicine; Visit Provider Physician Assistant Medical
DX: E87.6 Hypokalemia (principal)
CPT/HCPCS: 36415; 80048

== ENCOUNTER → 2018-09-11 15:27 | Outpatient (CLI) | payer MEDICARE, SELFPAY ==
[2018-08-22 09:01] VITALS: BMI 22.0
--- NOTE | 2018-09-11 15:30 | RAD_ITS ---
STUDY: X-RAY - THORACIC SPINE REASON FOR EXAM: Female, 78 years old. Pain TECHNIQUE: 2 view(s) of the thoracic spine were obtained. COMPARISON: April 03, 2018 LS-spine x-ray. FINDINGS: Mildly increased kyphosis of the thoracic spine. There is a mild upper thoracic scoliosis. Degenerative changes of the thoracic vertebrae with mild spurring at the endplates. Mild wedge compression of multiple mid and lower thoracic vertebral segments. Normal disc space heights. Proximal interval increasing compression of lower thoracic and upper lumbar vertebral segments since the previous study The soft tissue structures are unremarkable. RAD/Thoracic Spine 3 Views IMPRESSION: Diffuse degenerative changes of the thoracic spine. Mild wedge compression of multiple mid and lower thoracic segments. Interval increase in compression of lower thoracic and upper lumbar segments. Electronically Signed: Jacob Mcgregor DO at 21:13 EDT Tel [phone], Service support ,
--- NOTE | 2018-09-11 15:30 | RAD_ITS ---
STUDY: X-RAY - LUMBAR SPINE REASON FOR EXAM: Female, 78 years old. Lumbago TECHNIQUE: 5 view(s) of the lumbar spine were obtained. COMPARISON: 04/03/2018 FINDINGS: Mild compression deformities of the superior endplates of L1, L2, L3, and L5 are noted. The deformity at the L2 level has progressed. The other deformities are new compared to prior study. Consider MRI correlation. Diffuse facet disease. No severe foraminal stenoses are detected. Diffuse demineralization. Vascular calcifications. RAD/L/S Spine Min 4 Views IMPRESSION: Mild compression deformities of the superior endplates of L1, L2, L3, and L5 are noted. The deformity at the L2 level has progressed. The other deformities are new compared to prior study. Consider MRI correlation. Electronically Signed: Jb Wright MD at 22:13 EDT Tel , Service support ,
== END ==
PROVIDERS: Family Provider Family Medicine; PCP Family Medicine; Referring Provider Family Medicine; Visit Provider Family Medicine
DX: M54.5 Low back pain (principal)
CPT/HCPCS: 72072; 72110

== ENCOUNTER → 2018-09-19 17:38 | Outpatient (CLI) | payer MEDICARE, SELFPAY ==
[2018-08-22 09:01] VITALS: BMI 22.0
--- NOTE | 2018-09-19 18:15 | MRI_ITS ---
STUDY: MRI LUMBAR SPINE WITHOUT CONTRAST REASON FOR EXAM: Female, 78 years old. Low back pain and compression fracture TECHNIQUE: Standardized fat and water weighted pulse sequences were obtained in the sagittal and axial planes. COMPARISON: Radiograph lumbar spine September 11, 2018 FINDINGS: Mild compression fractures T12, L1 and L2. No significant retropulsion or bone marrow edema. T12-L1: Normal endplates. Normal disc height, hydration and morphology. Normal bilateral facet joints. Normal central canal and bilateral lateral recesses. Normal bilateral intervertebral neural foramina. Mild circumferential disc marginal osteophyte. Normal lumbar lordosis. There is no substantial scoliosis. Normal conus medullaris that terminates at the lumbar level. L1-2: Normal endplates. Normal disc height, hydration and morphology. Normal bilateral facet joints. Normal central canal and bilateral lateral recesses. Normal bilateral intervertebral neural foramina. Small circumferential disc marginal osteophyte. L2-3: Normal endplates. Normal disc height, hydration and morphology. Normal bilateral facet joints. Normal central canal and bilateral lateral recesses. Normal bilateral intervertebral neural foramina. Mild circumferential disc marginal osteophyte and mild trefoil type narrowing. L3-4: Normal endplates. Normal disc height, hydration and morphology. Hypertrophic bilateral facet joints. Normal central canal and bilateral lateral recesses. Normal bilateral intervertebral neural foramina. Mild circumferential disc marginal osteophyte. L4-5: Moderate circumferential disc marginal osteophyte causing severe narrowing of the neural foramen on the left and mild to moderate narrowing on the right. Central thecal sac demonstrates mild trefoil type narrowing. L5-S1: Normal endplates. Normal disc height, hydration and morphology. Normal bilateral facet joints. Normal central canal and bilateral lateral recesses. Normal bilateral intervertebral neural foramina. Normal visualized sacral ala. Normal visualized paraspinous soft tissue structures. MRI/Spine Lumbar (Routine) IMPRESSION: Multiple mild remote compression fractures as above. Spinal stenosis as above. Electronically Signed: Ap Chacko MD at 19:24 EDT , Service support ,
== END ==
PROVIDERS: Family Provider Family Medicine; PCP Family Medicine; Referring Provider Family Medicine; Visit Provider Family Medicine
DX: S32.020A Wedge compression fracture of second lumbar vertebra, initial encounter for closed fracture (principal)
CPT/HCPCS: 72148

== ENCOUNTER 2018-12-13 09:00 | Outpatient (RCR) | payer MEDICARE, SELFPAY ==
[2018-08-22 09:01] VITALS: BMI 22.0
--- NOTE | 2018-10-19 12:58 | HP.PTEVAL_ITS ---
Patient's Visit Information DEANA LYNN is a 78 year old F referred to Physical Therapy by Jose Abrams MD with a diagnosis of DDD. Date of Evaluation: 10/19/18 Physical Therapist: Martínez Mei, PT, ATC - Visit Plan Frequency: 2-3x /Week Duration: 4-6 Weeks Plan: Postural edu, core strengthening in neutral spine posture, B LE stregnthening, bike, and HEP - Subjective Findings: Pt reports she has had LBP for over 9 months. Pt reports [facility] when she injured her LB. Pt reports she had xrays at the time and notes she had multiple compression fractures. Pt reports she had PT and notes she felt much better afterwards, but the pain has returned. Pt notes the pain is progressively worsening at this time. Pt No tingling or numbness at this time. Occasional sleep difficulty secondary to pain. Pt reports she is still able to go on walks daily without limitations for 30 min. Pt reports recent xrays taken which revealed DDD. 6/10 pain at rest, 9/10 pain at worst (waking up and getting out of bed) - Pain L/S Pain Intensity (Out of 10): 6 Pain Intensity Range: 9 - Objective Neuro: B LE sensation is WNL to light touch. B patellar reflex= 2/3. MMT: B hip flex and knee flex= 4/5. All other measurements 5/5 throughout. ROM: Pt is severely limited with L/S extension. Repeated movements: repeated flexion in LYing increased pain significantly - Goals Goal 1:: Decrease LBP x 50% to aid with sleep Goal Time Frame: 4-6 Weeks Goal 2:: Increase LE strength x 1 grade to aid with IADL's Goal Time Frame: 4-6 Weeks Goal 3:: Increase L/S ROM x 1 grade to aid with decreasing LBP Goal Time Frame: 4-6 Weeks Goal 4:: I with HEP Goal Time Frame: 4-6 Weeks - Rehabilitation Potential Physical Therapy Diagnosis: Pt has LBP, LE weakness, and limited L/S ROM secondary to DDD. Rehabilitation Potential: Good - Anticipated Interventions Patient/Client Instruction: Educate patient on: Condition, Plan of Care For the Purpose of:: To improve self management Therapeutic Exercise to Include: Strength training, Endurance training, Body mechanics, Postural training, Dynamic Lumbar Stabilization For the Purpose of:: To decrease pain, To increase ROM, To improve muscle performance and motor function Thermo therapy (hot pack): Yes For the Purpose of:: To decrease pain Thank you for the opportunity to evaluate your patient. For Medicare and Medicare HMO plans, please review the plan of care and approve it. It will need to be FAXED BACK to us at [phone] for Medicare purposes. For Medicare only, by signing this I certify the plan of care. Please let me know if there are questions or concerns regarding this plan of care. Physician Signature: Date:
--- NOTE | 2018-11-15 10:11 | HP.PTREVAL ---
Jose Abrams MD, It has been my pleasure to treat DEANA LYNN over the last 10 visits for DDD. Please see the progress note below for an update on the physical therapy plan of care! Subjective: Mild pain this date Objective/Function: LBP limits no sleep at this time 04/02. B LE strength 5/5 throughout. L/S ROM is improving Plan Plan: Follow up in one month to reassess I gym routine benefits Goals Goal 1:: Decrease LBP x 50% to aid with sleep Goal Time Frame: 4-6 Weeks Goal Progress: Goal Met Goal 2:: Increase LE strength x 1 grade to aid with IADL's Goal Time Frame: 4-6 Weeks Goal Progress: Goal Met Goal 3:: Increase L/S ROM x 1 grade to aid with decreasing LBP Goal Time Frame: 4-6 Weeks Goal Progress: Goal Met Goal 4:: I with HEP Goal Time Frame: 4-6 Weeks Goal Progress: Goal Met Anticipated Interventions Patient/Client Instruction: Educate patient on: Condition, Plan of Care For the Purpose of:: To improve self management Therapeutic Exercise to Include: Strength training, Endurance training, Body mechanics, Postural training, Dynamic Lumbar Stabilization For the Purpose of:: To decrease pain, To increase ROM, To improve muscle performance and motor function Thermo therapy (hot pack): Yes For the Purpose of:: To decrease pain Please do not hesitate to contact me at [phone] by phone or if you have questions or concerns regarding this new plan of care! Sincerely, Martínez Mei, PT, ATC
--- NOTE | 2019-02-07 13:47 | HP.PT.NRP ---
HP - Discharge Summary (1) - Patient Information DEANA LYNN was seen in my office for initial evaluation on 10/19/18. The following Plan of Care was established for this patient: Initial Frequency: 2-3x /Week Initial Duration: 4-6 Weeks - Anticipated Interventions Patient/Client Instruction: Educate patient on: Condition, Plan of Care For the Purpose of:: To improve self management Therapeutic Exercise to Include: Strength training, Endurance training, Body mechanics, Postural training, Dynamic Lumbar Stabilization For the Purpose of:: To decrease pain, To increase ROM, To improve muscle performance and motor function Thermo therapy (hot pack): Yes For the Purpose of:: To decrease pain This patient was last seen in our office . Pertinent comments regarding their Physical therapy will appear below: Pt was treated for 11 PT visits for DDD pain through the date of 12/13/18. Pt has not returned through todays date and is therefore discontinued at this time. At this point I will be discontinuing this patient from physical therapy. I would be happy to see this patient again in the future if found appropriate by the physician. Thank you! Martínez Mei, PT, ATC
== END 2018-12-13 19:00 | disposition home or self-care (01) ==
LOC: PT 09:00
PROVIDERS: Family Provider Family Medicine; PCP Family Medicine; Referring Provider Family Medicine; Visit Provider Family Medicine
DX: M47.819 Spondylosis without myelopathy or radiculopathy, site unspecified (principal)
CPT/HCPCS: 97110; 97161; 97530

== ENCOUNTER → 2019-01-26 07:04 | Outpatient (CLI) | payer MEDICARE, SELFPAY ==
[2018-12-11 10:21] VITALS: BMI 23.1
[2019-01-26 10:21] LABS: PTHIN 46.1 pg/mL (18.4-80.1); Vitamin D,25 Hydroxy 51.8 ng/mL (29.95-100.01)
[2019-01-26 10:30] LABS: ALB/GLOB Ratio 1.1 RATIO (0.9-2.4); AST(SGOT) 20 U/L (15-37); Alanine Aminotransfer ALT/SGPT 39 U/L (13-56); Albumin, Serum 4.1 g/dL (3.2-5.0); Alkaline Phosphatase 62 U/L (45-117); Anion Gap 6 (5-15); BUN 13 mg/dL (7-18); BUN/Creat Ratio 15.6 RATIO (10-20); Calcium,Total 9.1 mg/dL (8.5-10.1); Chloride 103 mmol/L (98-107); Creatinine, Serum 0.83 mg/dL (0.55-1.02); EST Glomerular Filtration Rate 71 mL/min (>60); Est Glom Filt Rate - Afr Amer 86 mL/min (>60); Globulin 3.8 g/dL (2.2-4.2); Glucose 86 mg/dL (74-106); Potassium 3.6 mmol/L (3.5-5.1); Protein, Total 7.9 g/dL (6.4-8.2); Sodium Level 137 mmol/L (136-145); T4 Free Direct 1.31 ng/dL (0.76-1.46)
[2019-01-29 17:29] LABS: Adrenocorticotropic Hormone 37.1 pg/mL (7.2-63.3)
[2019-01-29 20:49] LABS: Vitamin D 1,25-Dihydroxy 59.5 pg/mL (19.9-79.3)
== END ==
PROVIDERS: Family Provider Family Medicine; PCP Family Medicine; Referring Provider Internal Medicine Endocrinology, Diabetes & Metabolism; Visit Provider Internal Medicine Endocrinology, Diabetes & Metabolism
DX: M81.0 Age-related osteoporosis without current pathological fracture (principal); I49.9 Cardiac arrhythmia, unspecified
CPT/HCPCS: 36415; 80053; 82024; 82306; 82330; 82533; 82652; 83970; 84439; 84443

== ENCOUNTER → 2019-01-29 08:17 | Outpatient (CLI) | payer MEDICARE, SELFPAY ==
[2018-12-11 10:21] VITALS: BMI 23.1
[2019-01-29 11:03] LABS: 24HR. Urine Creatinine 1.09 g/24 HR (0.70-1.90)
== END ==
LOC: LAB 08:18 → LABSPEC 08:53
PROVIDERS: Family Provider Family Medicine; PCP Family Medicine; Referring Provider Internal Medicine Endocrinology, Diabetes & Metabolism; Visit Provider Internal Medicine Endocrinology, Diabetes & Metabolism
DX: I49.9 Cardiac arrhythmia, unspecified (principal); M81.0 Age-related osteoporosis without current pathological fracture
CPT/HCPCS: 81050; 82570

== ENCOUNTER → 2019-06-26 09:19 | Outpatient (CLI) | payer MEDICARE, SELFPAY ==
[2018-12-11 10:21] VITALS: BMI 23.1
--- NOTE | 2019-06-26 09:26 | BD_ITS ---
STUDY: DUAL ENERGY X-RAY ABSORPTIOMETRY / DXA REASON FOR EXAM: Female, 78 years old. RAVELER-SURGICAL EARLY AT 45 YRS OLD -- HX OF HRT IN PAST FOR 10 YRS -- USES STEROID NASAL SPRAY DAILY -- TAKES THYROID MEDICATION -- TAKES MULTIVITAMIN -- TAKES PROLIA- BEEN ON x4 YRS -- DOES MODERATE-HIGH AMOUNT OF EXERCISE -- FAMILY HX OF OSTEO- MOTHER -- HX OF MULTIPLE COMPRESSION FX''S IN 2019 -- LATRICE OF 3.5 INCHES TECHNIQUE: Bone Mineral Density (BMD) measurements of lumbar spine and bilateral hips were obtained. COMPARISON: Comparison is made with prior examination dated May 24, 2017. FINDINGS: Lumbar Spine (L1-L4): g/cm2 (1.002) / T-score (-1.5) / Z-score (0.3) Findings are suggestive of osteopenia with a moderate fracture risk. Increased thoracic kyphosis. Left Femur Total: g/cm2 (0.792) / T-score (-1.7) / Z-score (0.1) Left Femoral Neck: g/cm2 (0.731) / T-score (-2.2) / Z-score (-0.2) Right Femur Total: g/cm2 (0.74) / T-score (-1.8) / Z-score (0.1) Right Femoral Neck: g/cm2 (0.734) / T-score (-2.2) / Z-score (-0.2) The T-Scores on the most recent prior examination were: Lumbar Spine (L1-L4): There has been improvement of bone density since the previous examination. Left Femur Total: which represents a worsening of 0.9%. Right Femur Total: which represents a worsening of 0.5%. BD/Dexa Bone Density Study IMPRESSION: The patient is considered osteopenic as outlined below according to World Brian Organization (WHO) criteria with a high fracture risk. There has been worsening of bone density since the previous examination. Reference Information: The T-score is the number of standard deviations above or below the standard which is normal for young adults at their peak bone mineral density. The World Health Organization (WHO) interprets the T-scores as follows: Above -1 Normal bone density Between -1 and -2.5 Osteopenia Equal to / or below -2.5 Osteoporosis As a practical clinical guideline, osteopenia may be graded as follows: Mild -1 through -1.5 Moderate -1.6 through -2.0 Severe -2.1 through -2.4 The Z-score is the number of standard deviations above or below age-matched controls. A Z-score of less than -1.5 would be considered abnormal. References: 1. NIH Osteoporosis and Related Bone Diseases http://www.osteo.org 2. International Society for Clinical Densitometry http://www.iscd.org 3. National Osteoporosis Foundation http://www.nof.org Electronically Signed: Elie Newman, at 11:02 EDT , Service support ,
== END ==
PROVIDERS: PCP Family Medicine; Referring Provider Family Medicine; Visit Provider Family Medicine
DX: Z00.00 Encounter for general adult medical examination without abnormal findings (principal); Z78.0 Asymptomatic menopausal state
CPT/HCPCS: 77080

== ENCOUNTER → 2019-07-20 09:50 | Outpatient (CLI) | payer MEDICARE, SELFPAY ==
[2018-12-11 10:21] VITALS: BMI 23.1
--- NOTE | 2019-07-20 09:53 | BI_ITS ---
MAMMOGRAPHY - BILATERAL SCREENING REASON FOR EXAM: Female, 79 years old. Routine annual screening examination. PERTINENT HISTORY: Aunt with breast cancer. TECHNIQUE: Digital bilateral breast janett (3D mammographic acquisition) in the CC and MLO projections. 2-D mediolateral oblique (MLO) and craniocaudad (CC) views of both breasts were obtained. CAD: Full Field Digital Mammography with Computer Added Detection was performed. COMPARISON: Comparison is made with prior examination dated June 29, 2018 and May 24, 2017. FINDINGS: Breast Composition: The breasts are heterogeneously dense, which may obscure small masses. There are no dominant masses or suspicious calcifications. No other significant abnormalities are identified. There has been no significant change since the prior study. BI/SCREEN MAMM (CAD) W/JANETT BILAT IMPRESSION: Stable bilateral screening mammogram. Yearly follow-up mammogram recommended. (A) ASSESSMENT CATEGORY: BIRADS Category 1: Negative. A letter regarding these results will be sent to the patient by the facility within 30 days. Approximately 10% of breast cancers are not detected by mammography. A normal mammogram should not delay biopsy of a clinically suspicious abnormality. [id number] Electronically Signed: Elie Newman, at 10:50 EDT , Service support ,
== END ==
PROVIDERS: PCP Family Medicine; Referring Provider Family Medicine; Visit Provider Family Medicine
DX: Z12.31 Encounter for screening mammogram for malignant neoplasm of breast (principal)
CPT/HCPCS: 77063; 77067

== ENCOUNTER → 2019-10-25 07:41 | Outpatient (CLI) | payer MEDICARE, SELFPAY ==
[2019-10-09 12:57] VITALS: BMI 24.0
--- NOTE | 2019-10-25 07:42 | ECHOD_ITS ---
Reason For Study: Murmur Procedure This was a 2D Doppler, Color Flow transthoracic echocardiogram. Exam performed in department. Left Ventricle Normal LV size. Left ventricular systolic function is normal. The estimated ejection fraction is 65 %. Diastolic function is indeterminate. No regional wall motion abnormalities noted. Right Ventricle Normal RV size. Normal systolic function. Atria Normal left atrium. Normal right atrium. No doppler evidence for ASD. Mitral Valve There is no mitral annular calcification. Normal mitral valve. Moderate (2+) mitral valve insufficiency. Tricuspid Valve Normal tricuspid valve. Mild tricuspid valve insufficiency. Right ventricular systolic pressure estimated to be 31 mmHg. Aortic Valve Trisinus/trileaflet aortic valve. Normal aortic valve. Trivial aortic valve insufficiency. Pulmonic Valve The pulmonic valve is not well visualized. Great Vessels Normal sized aortic root. Calcified aortic root. Pericardium/Pleural No pericardial effusion. MMode/2D Measurements & Calculations LVIDd: 3.5 cm IVSd: 1.2 cm Ao root diam: 3.1 cm LVIDs: 2.4 cm LVPWd: 1.0 cm RVDd: 3.1 cm FS: 31.8 % LAV(MOD-bp): 31.1 ml LVAd ap4: 16.6 cm2 SV(MOD-sp4): 23.0 ml LAV(MOD-bp) Indexed: 23.2 ml/m2 EDV(MOD-sp4): 34.7 ml LAV(MOD-sp2): 31.4 ml EDV(sp4-el): 35.9 ml LAV(MOD-sp4): 22.4 ml LVAs ap4: 8.7 cm2 ESV(MOD-sp4): 11.8 ml ESV(sp4-el): 11.8 ml EF(MOD-sp4): 66.1 % EF(sp4-el): 67.1 % SV(sp4-el): 24.1 ml LA A4 area: 9.8 cm2 LA dimension(2D): 2.5 cm RA A4 area: 8.5 cm2 Doppler Measurements & Calculations MV E max jayme: 60.8 cm/sec Lat Peak E' Jayme: 4.5 cm/sec Med Peak E' Jayme: 4.1 cm/sec MV A max jayme: 88.3 cm/sec E/E' lat: 13.6 E/E' med: 14.9 MV E/A: 0.69 Ao V2 max: 133.6 cm/sec AI max jayme: 339.3 cm/sec LV V1 max: 91.0 cm/sec Ao max P.1 mmHg AI max P.1 mmHg LV V1 max P.3 mmHg Ao V2 mean: 97.7 cm/sec Ao mean P.1 mmHg AI dec slope: 181.7 cm/sec2 Ao V2 VTI: 27.5 cm AI P1/2t: 547.0 msec PA V2 max: 121.3 cm/sec TR max jayme: 262.4 cm/sec TR max P.5 mmHg Interpretation Summary Left ventricular systolic function is normal. The estimated ejection fraction is 65 %. Moderate (2+) mitral valve insufficiency. Mild tricuspid valve insufficiency. Trivial aortic valve insufficiency. Calcified aortic root. Right ventricular systolic pressure estimated to be 31 mmHg. Diastolic function is indeterminate. Ordering Physician: Thomas Jackson Referring Physician: Tereso Abrams Performed By: Missy Jackson, JAYESH, RVT
== END ==
PROVIDERS: PCP Family Medicine; Referring Provider Nurse Practitioner Family; Visit Provider Nurse Practitioner Family
DX: R01.1 Cardiac murmur, unspecified (principal); R55 Syncope and collapse
CPT/HCPCS: 93306

== ENCOUNTER → 2019-10-30 07:05 | Outpatient (CLI) | payer MEDICARE, SELFPAY ==
[2019-10-09 12:57] VITALS: BMI 24.0
[2019-10-30 10:56] LABS: Vitamin D,25 Hydroxy 66.9 ng/mL
[2019-10-30 11:04] LABS: Anion Gap 4 (5-15); BUN 14 mg/dL (7-18); BUN/Creat Ratio 17.8 RATIO (10-20); Calcium,Total 9.1 mg/dL (8.5-10.1); Chloride 109 mmol/L (98-107); Cholesterol 195 mg/dL (200); Creatinine, Serum 0.79 mg/dL (0.55-1.02); EST Glomerular Filtration Rate 75 mL/min (>60); Est Glom Filt Rate - Afr Amer 91 mL/min (>60); Glucose 82 mg/dL (74-106); High Density Lipoprotein 84 mg/dL; Potassium 3.6 mmol/L (3.5-5.1); Sodium Level 141 mmol/L (136-145); Triglycerides 33 mg/dL; Very Low Density Lipoprotein 7 mg/dL (5-40)
== END ==
PROVIDERS: PCP Family Medicine; Referring Provider Family Medicine; Visit Provider Family Medicine
DX: I10 Essential (primary) hypertension (principal); M81.0 Age-related osteoporosis without current pathological fracture
CPT/HCPCS: 36415; 80048; 80061; 82306; 84443

== ENCOUNTER → 2020-01-08 08:39 | Outpatient (CLI) | payer MEDICARE, SELFPAY ==
[2019-10-09 12:57] VITALS: BMI 24.0
[2020-01-08 10:35] LABS: Thyroid Stim Hormone (TSH) 2.79 uIU/mL (0.358-3.74)
== END ==
PROVIDERS: PCP Family Medicine; Referring Provider Family Medicine; Visit Provider Family Medicine
DX: E03.9 Hypothyroidism, unspecified (principal)
CPT/HCPCS: 36415; 84443

== ENCOUNTER → 2020-02-26 09:43 | Outpatient (CLI) | payer MEDICARE, SELFPAY ==
[2019-10-09 12:57] VITALS: BMI 24.0
[2020-02-26 12:45] LABS: Vitamin D,25 Hydroxy 70.3 ng/mL
[2020-02-26 13:01] LABS: ALB/GLOB Ratio 1.1 RATIO (0.9-2.4); AST(SGOT) 15 U/L (15-37); Alanine Aminotransfer ALT/SGPT 25 U/L (13-56); Albumin, Serum 3.7 g/dL (3.2-5.0); Alkaline Phosphatase 51 U/L (45-117); Anion Gap 9 (5-15); BUN 13 mg/dL (7-18); BUN/Creat Ratio 16.3 RATIO (10-20); Calcium,Total 9.2 mg/dL (8.5-10.1); Chloride 104 mmol/L (98-107); EST Glomerular Filtration Rate 74 mL/min (>60); Est Glom Filt Rate - Afr Amer 89 mL/min (>60); Globulin 3.4 g/dL (2.2-4.2); Glucose 89 mg/dL (74-106); Potassium 3.7 mmol/L (3.5-5.1); Protein, Total 7.1 g/dL (6.4-8.2); Sodium Level 138 mmol/L (136-145); T4 Free Direct 1.27 ng/dL (0.76-1.46); Thyroid Stim Hormone (TSH) 3.42 uIU/mL (0.358-3.74)
== END ==
PROVIDERS: PCP Family Medicine; Referring Provider Internal Medicine Endocrinology, Diabetes & Metabolism; Visit Provider Internal Medicine Endocrinology, Diabetes & Metabolism
DX: M81.0 Age-related osteoporosis without current pathological fracture (principal); E55.9 Vitamin D deficiency, unspecified; E03.9 Hypothyroidism, unspecified
CPT/HCPCS: 36415; 80053; 82306; 84439; 84443

== ENCOUNTER → 2020-06-16 15:06 | Outpatient (CLI) | payer MEDICARE, SELFPAY ==
[2019-10-09 12:57] VITALS: BMI 24.0
--- NOTE | 2020-06-16 15:09 | RAD_ITS ---
STUDY: X-RAY - LUMBAR SPINE REASON FOR EXAM: Female, 79 years old. LUMBAR STENOSIS TECHNIQUE: 5 view(s) of the lumbar spine were obtained. COMPARISON: 09/11/2018 FINDINGS: Normal lumbar lordosis. There is a mild scoliosis. Wedge compressions are noted of T8-T10 and T12-L2. Mild degenerative changes of the vertebral bodies with mild spurring at the endplates. Normal disc space heights. The soft tissue structures are unremarkable. RAD/L/S Spine Min 4 Views IMPRESSION: Degenerative changes as noted of the lumbar spine. Mild wedge compression of multiple lower thoracic and upper lumbar segments. Findings are similar to the previous study. Electronically Signed: Jacob Mcgregor DO at 16:09 EDT Tel [phone], Service support ,
== END ==
PROVIDERS: PCP Family Medicine; Referring Provider Family Medicine; Visit Provider Family Medicine
DX: M48.061 Spinal stenosis, lumbar region without neurogenic claudication (principal)
CPT/HCPCS: 72110

== ENCOUNTER → 2020-07-31 10:07 | Outpatient (CLI) | payer MEDICARE, SELFPAY ==
[2019-10-09 12:57] VITALS: BMI 24.0
--- NOTE | 2020-07-31 10:10 | BI_ITS ---
MAMMOGRAPHY - BILATERAL SCREENING REASON FOR EXAM: Female, 80 years old. Routine annual screening examination. PERTINENT HISTORY: Aunt with breast cancer. TECHNIQUE: Digital bilateral breast linda (3D mammographic acquisition) in the CC and MLO projections. 2-D mediolateral oblique (MLO) and craniocaudad (CC) views of both breasts were obtained. CAD: Full Field Digital Mammography with Computer Added Detection was performed. COMPARISON: Comparison is made with prior examination dated 07/20/2019 and 06/29/2018. FINDINGS: Breast Composition: The breasts are heterogeneously dense, which may obscure small masses. There are no dominant masses or suspicious calcifications. No other significant abnormalities are identified. There has been no significant change since the prior study. BI/SCREENING MAMM (CAD), BILAT IMPRESSION: Stable bilateral screening mammogram. Yearly follow-up mammogram recommended. (A) ASSESSMENT CATEGORY: BIRADS Category 1: Negative. A letter regarding these results will be sent to the patient by the facility within 30 days. Approximately 10% of breast cancers are not detected by mammography. A normal mammogram should not delay biopsy of a clinically suspicious abnormality. [id number] Electronically Signed: Elie Newman MD at 11:13 EDT , Service support ,
== END ==
PROVIDERS: PCP Family Medicine; Referring Provider Family Medicine; Visit Provider Family Medicine
DX: Z12.31 Encounter for screening mammogram for malignant neoplasm of breast (principal); Z80.3 Family history of malignant neoplasm of breast
CPT/HCPCS: 77067

== ENCOUNTER → 2020-09-02 07:03 | Outpatient (CLI) | payer MEDICARE, SELFPAY ==
[2020-08-15 10:35] VITALS: BMI 23.2
[2020-09-02 10:42] LABS: PTHIN 78.3 pg/mL (18.4-80.1)
[2020-09-02 11:08] LABS: ALB/GLOB Ratio 1.2 RATIO (0.9-2.4); AST(SGOT) 17 U/L (15-37); Alanine Aminotransfer ALT/SGPT 23 U/L (13-56); Albumin, Serum 3.8 g/dL (3.2-5.0); Alkaline Phosphatase 48 U/L (45-117); Anion Gap 8 (5-15); BUN 11 mg/dL (7-18); BUN/Creat Ratio 13.9 RATIO (10-20); Calcium,Total 8.6 mg/dL (8.5-10.1); Chloride 106 mmol/L (98-107); Cholesterol 194 mg/dL (200); Creatinine, Serum 0.79 mg/dL (0.55-1.02); EST Glomerular Filtration Rate 75 mL/min (>60); Est Glom Filt Rate - Afr Amer 90 mL/min (>60); Globulin 3.3 g/dL (2.2-4.2); Glucose 83 mg/dL (74-106); High Density Lipoprotein 78 mg/dL; Potassium 3.7 mmol/L (3.5-5.1); Protein, Total 7.1 g/dL (6.4-8.2); Sodium Level 139 mmol/L (136-145); Thyroid Stim Hormone (TSH) 3.77 uIU/mL (0.358-3.74); Triglycerides 74 mg/dL; Very Low Density Lipoprotein 15 mg/dL (5-40)
[2020-09-02 14:59] LABS: Bilirubin, Direct 0.15 mg/dL (0.00-0.30)
== END ==
PROVIDERS: PCP Family Medicine; Referring Provider Internal Medicine Cardiovascular Disease; Visit Provider Internal Medicine Cardiovascular Disease
DX: E55.9 Vitamin D deficiency, unspecified (principal); M81.0 Age-related osteoporosis without current pathological fracture; E03.9 Hypothyroidism, unspecified; E78.00 Pure hypercholesterolemia, unspecified
CPT/HCPCS: 36415; 80053; 80061; 82248; 83970; 84443

== ENCOUNTER → 2020-10-20 12:28 | Outpatient (CLI) | payer MEDICARE, SELFPAY ==
--- NOTE | 2020-10-20 12:38 | MRI_ITS ---
STUDY: MRI BRAIN WITHOUT CONTRAST REASON FOR EXAM: Female, 80 years old. DIZZINESS TECHNIQUE: Standardized multiplanar fat and water weighted pulse sequences were obtained. COMPARISON: None. FINDINGS: There is mild cerebral atrophy with widening of the extra-axial spaces and ventricular dilatation. There are a limited number of small white matter hyperintensities, distributed throughout the deep white matter tracts of the cerebral hemispheres, consistent with mild chronic white matter ischemic changes. There is no evidence for recent intracranial ischemia or other cause of cytotoxic edema on diffusion weighted imaging (DWI). Normal T2* images of the brain without demonstrated susceptibility artifact. There is no demonstrated hemosiderin stain. Normal bilateral basal ganglia. Normal thalami. There is no extra-axial fluid accumulation. Normal flow voids within the major intracranial circulation suggesting patency by spin echo criteria. Normal sella turcica, pituitary gland, infundibular stalk, optic chiasm and hypothalamus. Normal tectal plate and pineal gland. Normal midbrain, char[place] and medulla. Normal cerebellum. Normal basal cisterns. Normal bilateral temporal bones. Normal bilateral internal auditory canals. There are bilateral ocular lens implants with otherwise normal intraorbital contents. Normal visualized paranasal sinuses. Normal calvarium and skull base. Normal visualized soft tissue structures. Normal visualized upper cervical spine. MRI/Brain without Contrast IMPRESSION: Involutional changes of the brain, as described above. No acute infarct. Electronically Signed: Luis Lagos MD at 13:38 EDT Tel , Service support ,
== END ==
PROVIDERS: PCP Family Medicine; Referring Provider Family Medicine; Visit Provider Family Medicine
DX: R42 Dizziness and giddiness (principal)
CPT/HCPCS: 70551

== ENCOUNTER → 2020-11-06 14:58 | Outpatient (CLI) | payer MEDICARE, SELFPAY ==
--- NOTE | 2020-11-06 15:00 | RAD_ITS ---
STUDY: X-RAY - CERVICAL SPINE REASON FOR EXAM: Female, 80 years old. Neck pain and headache TECHNIQUE: 8 view(s) of the cervical spine were obtained. COMPARISON: None FINDINGS: Normal anterior atlantoaxial articulation. Normal odontoid process. Normal cervical lordosis. Normal vertebral bodies and endplates. There is multi-level degenerative disc disease with multilevel disc space narrowing. There is multi-level osseous foraminal stenosis. No instability on the flexion or extension views, range of motion is limited. The soft tissue structures are unremarkable. RAD/Cerv Spine Obl/Flex/Ext Comp IMPRESSION: Multilevel degenerative changes without fracture or suspicious osseous lesion, no instability. Electronically Signed: Jh Thomas MD at 17:02 EDT , Service support ,
== END ==
PROVIDERS: PCP Family Medicine; Referring Provider Family Medicine; Visit Provider Family Medicine
DX: M50.30 Other cervical disc degeneration, unspecified cervical region (principal); M48.02 Spinal stenosis, cervical region
CPT/HCPCS: 72052

== ENCOUNTER → 2020-12-24 | Outpatient (CLI) | payer MEDICARE, SELFPAY ==
--- NOTE | 2020-12-24 10:25 | LES_PTH ---
PATIENT: DEANA LYNN LOC: [facility] U#:[id number] AGE/SX: 80/F ROOM: RE12/24/[address]: Dr. Tereso Abrams MD : 1940 BED: DIS: 12/24/2020 SPEC #: [id number] RECD: 12/24/20 12:06 STATUS: AUGUST HEIKE #: [id number] RAQUEL: 12/24/20 10:[address]: Tereso Abrams DEPT: SURGICAL PATHOLOGY RECD BY: Margi Olivia Tissues: Skin of leg, NOS Procedures: Surgery Specimen Level IV HEADER OPERATION: Shave biopsy left leg lesion PRE-OP DIAGNOSIS: ? SCC TISSUE SUBMITTED: Left lower leg MICROSCOPIC DIAGNOSIS Left lower leg lesion, shave biopsy: Actinic keratosis with verrucous keratosis-like features. Solar elastosis. Lichenoid dermal chronic inflammation. Negative for malignancy. SJ:yohannes 12/25/2020 COMMENT Case has been reviewed in consultation with Dr. Rowe who concurs with the above diagnosis. IDC:AM MICROSCOPIC DESCRIPTION Slides are reviewed. GROSS DESCRIPTION Received in fixative is one container labeled with the patient's name and designated left leg. The specimen consists of a shave biopsy of thomas-white skin measuring 1.2 x 0.5 x 0.1 cm. The specimen is inked, serially sectioned and submitted entirely in one cassette. / SJ:yohannes 12/24/20 TC:5 CPT: 44371
== END | disposition home or self-care (01) ==
LOC: LABSPEC 12:27
PROVIDERS: PCP Family Medicine; Visit Provider Family Medicine
DX: L57.0 Actinic keratosis (principal); L57.8 Other skin changes due to chronic exposure to nonionizing radiation
CPT/HCPCS: 88305

== ENCOUNTER → 2021-01-01 08:37 | Outpatient (CLI) | payer MEDICARE, SELFPAY ==
--- NOTE | 2021-01-01 08:50 | CDU_ITS ---
Reason For Study: benign paroxysmal positional vertigo Rt. Velocities/BP Lt. Velocities/BP Prox CCA 95.6/13.4 cm/sec. Prox CCA 67.3/14.6 cm/sec. Mid CCA 93.0/13.4 cm/sec. Mid CCA 78.3/19.0. cm/sec. Dist CCA 76.0/14.7 cm/sec. Dist CCA 70.6/17.9 cm/sec. Prox ICA 48.7/12.4 cm/sec. Prox ICA 56.3/12.4 cm/sec. Mid ICA 82.7/22.3 cm/sec. Mid ICA 68.4/15.7 cm/sec. Dist ICA 55.3/16.8 cm/sec. Dist ICA 65.1/17.9 cm/sec. Rt. ICA/CCA = .9. Lt. ICA/CCA = .9. Prox ECA 73.4/6.9 cm/sec. Prox ECA 62.9/6.9 cm/sec. Rt. Vert. 46.5/12.4 cm/sec. Lt. Vert. 62.9/15.7 cm/sec. Right Extracranial There is intimal thickening but no significant atherosclerotic plaque noted in the right common carotid artery. There is intimal thickening but no significant atherosclerotic plaque noted in the right internal carotid artery. The right internal carotid artery is very tortuous. There is intimal thickening but no significant atherosclerotic plaque noted in the right external carotid artery. Antegrade flow is noted in the right vertebral artery. Left Extracranial There is intimal thickening but no significant atherosclerotic plaque noted in the left common carotid artery. There is intimal thickening but no significant atherosclerotic plaque noted in the left internal carotid artery. There is intimal thickening but no significant atherosclerotic plaque noted in the left external carotid artery. Antegrade flow is noted in the left vertebral artery. Procedure Carotid Duplex 44830. This is a Carotid Duplex examination using B-mode, color flow and specral Doppler. The exam was diagnostic. Exam performed in department. VL/Carotid Duplex Ultrasound Interpretation Summary Intimal thickening bilateral proximal internal carotid arteries with less than 50% stenosis bilaterally Less than 50% stenosis bilateral external carotid arteries Patent and antegrade vertebral arteries bilaterally No change from May 19, 2017 Ordering Physician: Jose Abrams Performed By: Donnell Aponte RVT
== END ==
PROVIDERS: PCP Family Medicine; Referring Provider Family Medicine; Visit Provider Family Medicine
DX: I65.23 Occlusion and stenosis of bilateral carotid arteries (principal); H81.10 Benign paroxysmal vertigo, unspecified ear
CPT/HCPCS: 93880

== ENCOUNTER 2021-01-13 10:30 | Outpatient (RCR) | payer MEDICARE, SELFPAY ==
--- NOTE | 2020-10-29 15:59 | HP.PTEVAL ---
Patient's Visit Information DEANA LYNN is a 80 year old F referred to Physical Therapy by Dr. Jose Abrams MD with a diagnosis of dizzyness/giddiness. Date of Evaluation: 10/29/20 Physical Therapist: Johny Rendon, EDIT, OCS, CSCS - Visit Plan Frequency: 1x/Week Duration: 4-6 Weeks Plan: weekly for progression of adaptation and habituation as needed. Next session check VOR, symptoms and MSQ as needed. Montior for positional if subjective calls for i8t. - Subjective Dizzy started end August had vertigo spell out of nowhere. This is the fourth one in 3 yrs. Called doctor and gave a specialist who saw her and gave her meclizine and head movement exercises. Merced good for a while 2-3 days later started getting dizzyness after being up for a while in the morning. Now some good days and some bad days for last 5 weeks. Described now as lightheadedness and slight LAMAR top of head. Is there most of day. usually OK upon waking. This does not happen every day. Loves to walk and can walk with it which sometimes helps. Spinning was present at first and did a maneuver and she felt better. Sleep is OK, lying and rolling both directions. Usually on L side. Not employed. Activities at home are pretty nromal but slower and more cautious if lightheaded. Balance is good. No falls, no AD needed. No regular exercises. no more meclizine at this point. Last two dizzy days were washing hair in shower adn looking up to feed self in mall. - Objective Walks well and trasnfers I. Cervical aROM WFL and without pain in sitting. - B hallpike marta. - roll test. Oculomotor: no nystagmus with gaze or head shake. normal pursuit and saccades, slow convergence, no symptoms. - skew eye deviation. - ocular tilt. VOR horiz and vertical are symtpomatic after 30 seconds at 4/10 for 30 seconds or so. + R head thrust. - Balance/Special Test Scores Functional Gait Assessment Score: 30 % Disability: 0 Dizziness Score: 26 - Goals Goal 1:: Abolish dizzy/lightheaded/LAMAR feeling for one week. Goal Time Frame: 2-4 Weeks Goal 2:: Pt feel 1005 back to normal activities without symptoms. Goal Time Frame: 2-4 Weeks Goal 3:: <6 score DHI Goal Time Frame: 2-4 Weeks - Rehabilitation Potential Physical Therapy Diagnosis: vertigo possibly unilateral vestibular hypofunction affecting activities. Rehabilitation Potential: Fair - Anticipated Interventions Patient/Client Instruction: Educate patient on: Condition, Plan of Care For the Purpose of:: To increase tolerance to activity/condition/position Therapeutic Exercise to Include: Neuromotor development Comment: vestibular exercises adn activities For the Purpose of:: To increase tolerance to activity/condition/position Thank you for the opportunity to evaluate your patient. For Medicare and Medicare HMO plans, please review the plan of care and approve it. It will need to be FAXED BACK to us at [phone] for Medicare purposes. For Medicare only, by signing this I certify the plan of care. Please let me know if there are questions or concerns regarding this plan of care. Physician Signature: Date:
--- NOTE | 2020-11-21 09:05 | HP.PTREVAL ---
Dr. Jose Abrams MD, It has been my pleasure to treat DEANA LYNN over the last 5 visits for dizzyness/giddiness. Please see the progress note below for an update on the physical therapy plan of care! Subjective: Stressed lately with association issue. Doing ex adn makes her a little dizzy every time for 35 seconds. Dizzyness slightly better maybe and is still walking. Script for neck given today and evaluated. Fall cleaning made her neck much worse adn reaching [place] make her worse. Pain ranges central neck and upper back to 0-5/10. Pain does not keep her up at night. Not avoiding any activites at home but pushes through pain. Objective/Function: VOR x 2 still slightly dizzy and not different from last [id number] as it has only been 2 days. Cervical posture is forward head and elevated scap. Very tight adn tender UT B, and cervical paraspinals. Cervical aROM 45 degree B rotations with stiffness L side at end range. extension is 45 degrees and very protective awith tightness centrally at end range. Upper thoracic spine is stiff and sore to PA pressure. reflexes UE bi and tri 2/3, sensation UE WNL to gross light touch. Strength UE 4-/5 withotu myotomal abnormalities. Appropriate to continue vestibualr adaptation interventions and below POC for cervical with fair prognosis toward same goals for dizzyness and new goals for cervical. Plan Plan: 2x/week for 2-4 weeks for. 1. STM to B UT and cervical parapsinals. progress to HEP. Manual tractiona dn PROM cervical rotation/ext/ret and throacic ext. 2. postural correction and strength when neck feeling better adn ROM improving. 3. Monitor dizzy symptoms and EG to progress HEP intermittently as needed. Pt does have osteo porosis. Balance/Gait/Functional tests - Balance/Special Test Scores Functional Gait Assessment Score: 30 % Disability: 0 Dizziness Score: 16 Goals Goal 1:: Abolish dizzy/lightheaded/LAMAR feeling for one week. Goal Time Frame: 2-4 Weeks Goal Progress: Progressing, approp Goal 2:: Pt feel 100% back to normal activities without symptoms. Goal Time Frame: 2-4 Weeks Goal Progress: 60% dizzy, approp Goal 3:: <6 score DHI Goal Time Frame: 2-4 Weeks Goal 4:: Pt feel neck pain 90% better adn I in appropriate management Goal Time Frame: 2-4 Weeks Goal Progress: NEW GOAL Goal 5:: Cwervical AROM 60 rotations and 60 extension without pain Goal Time Frame: 2-4 Weeks Goal Progress: NEW GOAL Anticipated Interventions Patient/Client Instruction: Educate patient on: Condition, Plan of Care For the Purpose of:: To increase tolerance to activity/condition/position Therapeutic Exercise to Include: Neuromotor development Comment: vestibular exercises adn activities For the Purpose of:: To increase tolerance to activity/condition/position Please do not hesitate to contact me at [phone] by phone or if you have questions or concerns regarding this new plan of care! Sincerely, Johny Rendon, DPT, OCS, CSCS
--- NOTE | 2020-12-05 09:22 | HP.PTREVAL ---
Dr. Jose Abrams MD, It has been my pleasure to treat DEANA LYNN over the last 9 visits for dizzyness/giddiness. Please see the progress note below for an update on the physical therapy plan of care! Subjective: Im coming along. I could turn my head in car last week and it was great. Driving has been better. Dizziness is still up and down. Dizzyness is less often but same duration of a couple hours. Gets that 3x/week. To doctor 12/18. Dizzyness is 60% better. VORx 2 still dizzy for a couple minutes. Improving. Neck feel 70% better. Overall would like to continue [facility] neck treatments. Objective/Function: 62 R rotation and 78 L rotation with just some stiffness. 73 extension. Much improved with still some work to do. Posture is improved with retraction. UE AROM WFL. VORx2 60 sec still casues some dizzyness, VOR walking causes some trasnient dizzyness. Overall much improved and appropriate to continue toward cervical goals. Dizzyness improving more slowly than anticipated and should be checked by doctor at next f/u in two weeks. Plan Plan: 2x/week for 2 weeks for. 1. monitor and progress postural cervical strength. 2. Focus on manual theray for neck with STM, mobs and R rotation, PROM. Balance/Gait/Functional tests - Balance/Special Test Scores Functional Gait Assessment Score: 29 % Disability: 3.3400 Dizziness Score: 18 Goals Goal 1:: Abolish dizzy/lightheaded/LAMAR feeling for one week. Goal Time Frame: 2-4 Weeks Goal Progress: Not Progressing Goal 2:: Pt feel 100% back to normal activities without symptoms. Goal Time Frame: 2-4 Weeks Goal Progress: 70% Goal 3:: <6 score DHI Goal Time Frame: 2-4 Weeks Goal Progress: Not Progressing Goal 4:: Pt feel neck pain 90% better adn I in appropriate management Goal Time Frame: 2-4 Weeks Goal Progress: 70%, approp Goal 5:: Cwervical AROM 60 rotations and 60 extension without pain Goal Time Frame: 2-4 Weeks Goal Progress: Goal Met Anticipated Interventions Patient/Client Instruction: Educate patient on: Condition, Plan of Care For the Purpose of:: To increase tolerance to activity/condition/position Therapeutic Exercise to Include: Neuromotor development Comment: vestibular exercises adn activities For the Purpose of:: To increase tolerance to activity/condition/position Please do not hesitate to contact me at [phone] by phone or if you have questions or concerns regarding this new plan of care! Sincerely, Johny Rendon, DPT, OCS, CSCS
--- NOTE | 2020-12-23 08:57 | HP.PTREVAL_ITS ---
Dr. Jose Knowles MD, It has been my pleasure to treat DEANA LYNN over the last 14 visits for dizzyness/giddiness. Please see the progress note below for an update on the physical therapy plan of care! Subjective: Been doing really good. Tuesday went to mall at [email or web address] and was organizing gifts afterwards and got dizzy spell. Sat down and looked at a point and started to feel better. Just an hour or two of klightheadedness. Have not had that in a long time. Neck is much better. Thinks it can be even better. R side hurts 05/31. Saw Dr. knowles and he recommended home massager which helps. Willing to keep doing HEP and use that massager. No balance problems. Objective/Function: 55 cervical ext adn 71 B rotation without pain. - B hallpike marta. Full UE AROM without pain and good symmetrical strength. Plan Plan: f/u 3 weeks to ensure continuation of goals being met and d/c, pt to call prior if neck or dizzyness worsens. New goal and good prognosis Balance/Gait/Functional tests - Balance/Special Test Scores Functional Gait Assessment Score: 29 % Disability: 3.3400 Oswestry Neck Score: 11 Dizziness Score: 16 Goals Goal 1:: Abolish dizzy/lightheaded/LAMAR feeling for one week. Goal Time Frame: 2-4 Weeks Goal Progress: Goal Met, outside mall Goal 2:: Pt feel 100% back to normal activities without symptoms. Goal Time Frame: 2-4 Weeks Goal Progress: Goal Met Goal 3:: <6 score DHI Goal Time Frame: 2-4 Weeks Goal Progress: Not Progressing Goal 4:: Pt feel neck pain 90% better adn I in appropriate management Goal Time Frame: 2-4 Weeks Goal Progress: Goal Met Goal 5:: Cwervical AROM 60 rotations and 60 extension without pain Goal Time Frame: 2-4 Weeks Goal Progress: Goal Met Goal 6:: Continue to meet goals and get 955 better with just HEP vs frequent visits for 2 weeks Goal Time Frame: 2 Weeks Goal Progress: NEW GOAL Anticipated Interventions Patient/Client Instruction: Educate patient on: Condition, Plan of Care For the Purpose of:: To increase tolerance to activity/condition/position Therapeutic Exercise to Include: Neuromotor development Comment: vestibular exercises adn activities For the Purpose of:: To increase tolerance to activity/condition/position Please do not hesitate to contact me at [phone] by phone or if you have questions or concerns regarding this new plan of care! Sincerely, Johny Rendon, DPT, OCS, CSCS
--- NOTE | 2021-01-13 10:42 | HP.PTDCSUM ---
It has been my pleasure to treat DEANA LYNN referred by Dr. Jose Abrams MD, with the diagnosis of dizzyness/giddiness for a total of 15 visit(s). Discharge Date: 01/13/21 Please see the following information for a summary of their discharge status. Subjective: Neck is doing really well. I am good, no pain lately. Standing too much can bother LB. Dizzyness is good, only one episode in big room with lots of lights and tress. Gone quickly. Activites and sleeping are normal. neck Pain Intensity (Out of 10): 0 % Improvement: 95 Objective/Function: 68 B rotations. 60 ext. Full UE AROM and symmetrical ROM and strength without pain in UE. Not overly tender in neck today. Overll doing very well adn continuing to meet goals. Goal 1:: Abolish dizzy/lightheaded/LAMAR feeling for one week. Goal Progress: Goal Met, outside mall Goal 2:: Pt feel 100% back to normal activities without symptoms. Goal Progress: Goal Met Goal 3:: <6 score DHI Goal Progress: Not Progressing Goal 4:: Pt feel neck pain 90% better adn I in appropriate management Goal Progress: Goal Met Goal 5:: Cwervical AROM 60 rotations and 60 extension without pain Goal Progress: Goal Met Goal 6:: Continue to meet goals and get 95% better with just HEP vs frequent visits for 2 weeks Goal Progress: Goal Met Plan: d/c to HEP, pt to contact doctor if symptoms return Discharge Comments: Pt to contact doctor if symptoms return. doing very well at this point. If there are questions or concerns regarding this patient's physical therapy, please feel free to call me at [phone]. Thank you for the referral of this patient. Sincerely, Johny Rendon, DPT, OCS, CSCS Balance/Gait/Functional tests - Balance/Special Test Scores Functional Gait Assessment Score: 29 % Disability: 3.3400 Oswestry Neck Score: 4 Dizziness Score: 16
== END 2021-01-13 19:00 | disposition home or self-care (01) ==
LOC: PT 10:30
PROVIDERS: PCP Family Medicine; Referring Provider Family Medicine; Visit Provider Family Medicine
DX: M50.30 Other cervical disc degeneration, unspecified cervical region (principal)
CPT/HCPCS: 97110; 97140; 97161; 97164; 97530

== ENCOUNTER → 2021-02-04 | Outpatient (CLI) | payer MEDICARE, SELFPAY | END | disposition home or self-care (01) | LOC: LABSPEC 02-05 08:24 | PROVIDERS: PCP Family Medicine; Referring Provider Family Medicine; Visit Provider Family Medicine | DX: B34.9 Viral infection, unspecified (principal) | CPT/HCPCS: 87633; 87635; U0005; U0003 ==

== ENCOUNTER 2021-03-18 14:26 | Outpatient (CLI) | payer MEDICARE, SELFPAY ==
[2021-03-18 18:01] LABS: Vitamin D,25 Hydroxy 82.1 ng/mL
[2021-03-19 07:18] LABS: ALB/GLOB Ratio 1.1 RATIO (0.9-2.4); AST(SGOT) 17 U/L (15-37); Alanine Aminotransfer ALT/SGPT 24 U/L (13-56); Albumin, Serum 3.8 g/dL (3.2-5.0); Alkaline Phosphatase 52 U/L (45-117); Anion Gap 7 (5-15); BUN 18 mg/dL (7-18); BUN/Creat Ratio 19.9 RATIO (10-20); Calcium,Total 9.2 mg/dL (8.5-10.1); Chloride 103 mmol/L (98-107); EST Glomerular Filtration Rate 64 mL/min (>60); Est Glom Filt Rate - Afr Amer 77 mL/min (>60); Free T3 2.3 pg/mL (2.18-3.98); Globulin 3.5 g/dL (2.2-4.2); Glucose 58 mg/dL (74-106); Potassium 3.1 mmol/L (3.5-5.1); Protein, Total 7.3 g/dL (6.4-8.2); Sodium Level 138 mmol/L (136-145); T4 Free Direct 1.18 ng/dL (0.76-1.46); Thyroid Stim Hormone (TSH) 3.01 uIU/mL (0.358-3.74)
== END 2021-03-18 23:59 | disposition short-term general hospital (02) ==
LOC: MTLAB 14:28
PROVIDERS: PCP Family Medicine; Referring Provider Internal Medicine Endocrinology, Diabetes & Metabolism; Visit Provider Internal Medicine Endocrinology, Diabetes & Metabolism
DX: E03.9 Hypothyroidism, unspecified (principal); M81.0 Age-related osteoporosis without current pathological fracture; E55.9 Vitamin D deficiency, unspecified
CPT/HCPCS: 36415; 80053; 82306; 84439; 84443; 84481

== ENCOUNTER 2021-03-23 12:24 | Outpatient (CLI) | payer MEDICARE, SELFPAY | END 2021-03-23 23:59 | disposition short-term general hospital (02) | LOC: LABSPEC 12:24 | PROVIDERS: PCP Family Medicine; Visit Provider Family Medicine | DX: N39.0 Urinary tract infection, site not specified (principal) | CPT/HCPCS: 87086; 87088; 87186 ==

== ENCOUNTER 2021-04-13 09:50 | Outpatient (CLI) | payer MEDICARE, SELFPAY ==
[2021-04-13 10:48] LABS: Anion Gap 4 (5-15); BUN 15 mg/dL (7-18); BUN/Creat Ratio 20.3 RATIO (10-20); Calcium,Total 9.1 mg/dL (8.5-10.1); Chloride 105 mmol/L (98-107); Creatinine, Serum 0.74 mg/dL (0.55-1.02); EST Glomerular Filtration Rate 81 mL/min (>60); Est Glom Filt Rate - Afr Amer 98 mL/min (>60); Glucose 93 mg/dL (74-106); Potassium 3.7 mmol/L (3.5-5.1); Sodium Level 137 mmol/L (136-145)
[2021-04-13 10:49] LABS: Absolute Lymphocyte Count 1.16 X10^3/uL (0.83-4.51); Absolute Neutrophil Count 3.3 X10^3/uL (2.0-7.7); Basophil# 0.05 X10^3/uL; Eosinophil# 0.05 X10^3/uL; Hematocrit 40.5 % (37-47); Hemoglobin 13.4 g/dL (12.0-15.0); Lymphocyte # 1.16 X10^3/ul (0.83-4.51); Lymphocyte % 22.8 % (19-41); Mean Corp Hgb Conc 33.1 g/dL (32-36); Mean Corpuscular Hgb 30.4 pg (27.0-32.0); Mean Corpuscular Volume 91.8 fL (81-99); Mean Platelet Vol. 10.1 fl (6.2-12.0); Monocyte# 0.48 X10^3/uL; Monocyte% 9.4 % (0-10); NRBC Flagged by Analyzer 0 % (0-5); Neutrophil # 3.33 X10^3/uL (2.7-7.7); Neutrophil % 65.6 % (47-70); Platelet Count 426 K/mm3 (150-450); RBC Distribution Width CV 13.2 % (11.6-14.6); RBC Distribution Width SD 43.9 fl (35.1-43.9); Red Blood Count 4.41 M/mm3 (4.2-5.4); White Blood Count 5.1 K/mm3 (4.4-11.0)
== END 2021-04-13 23:59 | disposition home or self-care (01) ==
LOC: LAB 09:51
PROVIDERS: PCP Family Medicine; Referring Provider Nurse Practitioner Gerontology; Visit Provider Nurse Practitioner Gerontology
DX: I10 Essential (primary) hypertension (principal); R53.83 Other fatigue
CPT/HCPCS: 36415; 80048; 85025

== ENCOUNTER 2021-05-12 06:01 | Outpatient (CLI) | payer MEDICARE, SELFPAY ==
--- NOTE | 2021-05-12 09:21 | STRESSREP_ITS ---
Stress Test Report Date: 05-12-2021 Procedure: Exercise tolerance test/imaging study Indications: Chest pain; palpitations Consent: Per the patient Procedure: The patient exercised on a Matias protocol for 3 minutes and 20 seconds completing Stage I and 20 seconds of Stage II achieving a peak heart rate of 155 bpm (109% predicted maximal heart rate) with a peak blood pressure 194/82 mmHg and a peak MET capacity of 5 METs. The baseline ECG demonstrated sinus rhythm; PACs; poor R wave progression. The peak exercise ECG demonstrated no obvious ECG changes. And recovery there were occasional PACs pretest, during exercise,. The functional capacity was considered decreased. There was no complaint of chest discomfort during exercise or recovery. The examination was discontinued secondary to fatigue and dizziness. Impression: 1. Technically adequate (percent predicted maximal heart rate greater than 85%) exercise tolerance test 2. Peak exercise ECG with no obvious ECG changes 3. There were occasional PACs pretest, during exercise, and recovery 4. Nuclear images pending Myocardial perfusion imaging study: Technique: The patient was injected with 11.5 mCi of technetium 99m Cardiolite and subsequently rest SPECT Cardiolite nuclear imaging was obtained in the horizontal long, vertical long, and short axis views. The patient exercised on a Matias protocol for 3 minutes and 20 seconds completing Stage I and 20 seconds of Stage II achieving a peak heart rate of 155 bpm (109% predicted maximal heart rate) with a peak blood pressure 194/82 mmHg and a peak MET capacity of 5 METs. The patient was injected with 31.1 mCi of technetium 99m Cardiolite and subsequently stress SPECT Cardiolite nuclear imaging was obtained in the horizontal long, vertical long, and short axis views. A gated Cardiolite study at peak stress was obtained. Interpretation: Rest and stress SPECT Cardiolite nuclear imaging status post realignment, normalization, and attenuation correction, demonstrates the appearance of relative uniform tracer uptake and myocardial perfusion appearing within normal limits. There is end systolic thickening and brightening. The gated Cardiolite study demonstrates myocardial thickening and inward wall motion. The reported LVEF is 85%. Impression: 1. Rest and stress SPECT Cardiolite nuclear imaging demonstrate relative uniform tracer uptake and myocardial perfusion appearing within normal limits. 2. The gated Cardiolite study reports an LVEF of 85%. This note was generated with [employer] software. It may contain incorrect words, spelling, and punctuation that were not noted in checking the note before signing.
== END 2021-05-12 23:59 | disposition home or self-care (01) ==
PROVIDERS: PCP Family Medicine; Referring Provider Nurse Practitioner Gerontology; Visit Provider Nurse Practitioner Gerontology
DX: R07.9 Chest pain, unspecified (principal)
CPT/HCPCS: 78452; 93017; A9500; A4216

== ENCOUNTER → 2021-07-01 | Outpatient (CLI) | payer MEDICARE, SELFPAY ==
--- NOTE | 2021-07-01 08:24 | BD_ITS ---
STUDY: DUAL ENERGY X-RAY ABSORPTIOMETRY / DXA REASON FOR EXAM: Female, 80 years old. M810. The patient is postmenopausal. TECHNIQUE: Bone Mineral Density (BMD) measurements of lumbar spine and bilateral hips were obtained. COMPARISON: Comparison is made with prior study dated 06/26/2019. FINDINGS: Lumbar Spine (L1-L4): g/cm2 (0.899) / T-score (-1.1) / Z-score (1.5) Findings are suggestive of normal bone density with a low fracture risk. Left Femur Total: g/cm2 (0.731) / T-score (-1.7) / Z-score (0.3) Left Femoral Neck: g/cm2 (0.554) / T-score (-2.7) / Z-score (-0.4) Right Femur Total: g/cm2 (0.762) / T-score (-1.5) / Z-score (0.5) Right Femoral Neck: g/cm2 (0.573) / T-score (-2.5) / Z-score (-0.2) The T-Scores on the most recent prior examination were: Lumbar Spine (L1-L4): There has been improvement of bone density since the previous examination. Left Femur Total: which represents a worsening of 0.1%. Right Femur Total: which represents an improvement of 5.2%. BD/Dexa Bone Density Study IMPRESSION: The patient is considered osteoporotic as outlined below according to World Brian Organization (WHO) criteria with a high fracture risk. There has been worsening of bone density since the previous examination. Reference Information: The T-score is the number of standard deviations above or below the standard which is normal for young adults at their peak bone mineral density. The World Health Organization (WHO) interprets the T-scores as follows: Above -1 Normal bone density Between -1 and -2.5 Osteopenia Equal to / or below -2.5 Osteoporosis As a practical clinical guideline, osteopenia may be graded as follows: Mild -1 through -1.5 Moderate -1.6 through -2.0 Severe -2.1 through -2.4 The Z-score is the number of standard deviations above or below age-matched controls. A Z-score of less than -1.5 would be considered abnormal. References: 1. NIH Osteoporosis and Related Bone Diseases www osteo.org 2. International Society for Clinical Densitometry www iscd.org 3. National Osteoporosis Foundation www nof.org Electronically Signed: Elie Newman MD at 15:25 EDT ,
== END | disposition home or self-care (01) ==
PROVIDERS: PCP Internal Medicine Endocrinology, Diabetes & Metabolism; Visit Provider Internal Medicine Endocrinology, Diabetes & Metabolism
DX: M81.0 Age-related osteoporosis without current pathological fracture (principal)
CPT/HCPCS: 77080

== ENCOUNTER → 2021-07-27 | Outpatient (CLI) | payer MEDICARE, SELFPAY ==
--- NOTE | 2021-07-27 12:51 | ECHOD_ITS ---
Reason For Study: MITRAL INSUFF Procedure This was a 2D Doppler, Color Flow transthoracic echocardiogram. The study was technically difficult. Contrast injection was performed. Exam performed in department. Left Ventricle Normal LV size. Left ventricular systolic function is normal. The estimated ejection fraction is 65 %. Diastolic function is indeterminate. No regional wall motion abnormalities noted. Right Ventricle Normal RV size. Normal systolic function. Atria Normal left atrium. Normal right atrium. No doppler evidence for ASD. Mitral Valve There is no mitral annular calcification. Normal mitral valve. Mild (1+) mitral valve insufficiency. Tricuspid Valve Normal tricuspid valve. Mild to moderate (1-2+) tricuspid valve insufficiency. Right ventricular systolic pressure estimated to be 24 mmHg. Aortic Valve Trisinus/trileaflet aortic valve. Mild focal aortic valve calcification. Trivial aortic valve insufficiency. Pulmonic Valve The pulmonic valve is not well visualized. Great Vessels Normal sized aortic root. Calcified aortic root. Pericardium/Pleural No pericardial effusion. Medication 22 gauge I.V. with prn adaptor inserted into right arm. Diluted definity 1ml given slow IV push to enhance endocardial definition. MMode/2D Measurements & Calculations LVIDd: 4.3 cm IVSd: 0.82 cm Ao root diam: 2.9 cm LVIDs: 2.5 cm LVPWd: 0.76 cm FS: 41.8 % LVAd ap4: 27.7 cm2 SV(MOD-sp4): 46.2 ml SV(sp4-el): 49.4 ml LVLd ap4: 7.6 cm EDV(MOD-sp4): 81.2 ml EDV(sp4-el): 85.8 ml LVAs ap4: 16.7 cm2 LVLs ap4: 6.5 cm ESV(MOD-sp4): 35.0 ml ESV(sp4-el): 36.4 ml EF(MOD-sp4): 56.9 % EF(sp4-el): 57.6 % Doppler Measurements & Calculations MV E max jayme: 69.6 cm/sec Lat Peak E' Jayme: 3.7 cm/sec Med Peak E' Jayme: 4.5 cm/sec MV A max jayme: 99.2 cm/sec E/E' lat: 18.6 E/E' med: 15.4 MV E/A: 0.70 Ao V2 max: 133.3 cm/sec AI max jayme: 337.6 cm/sec LV V1 max: 112.2 cm/sec Ao max P.1 mmHg AI max P.6 mmHg LV V1 max P.0 mmHg AI dec slope: 228.4 cm/sec2 AI P1/2t: 433.0 msec PA V2 max: 92.0 cm/sec TR max jayme: 227.7 cm/sec TR max P.7 mmHg ECHO/Echo Complete W/ Contrast Interpretation Summary The study was technically difficult. Contrast injection was performed. Left ventricular systolic function is normal. The estimated ejection fraction is 65 %. Mild (1+) mitral valve insufficiency. Mild to moderate (1-2+) tricuspid valve insufficiency. Mild focal aortic valve calcification. Trivial aortic valve insufficiency. Calcified aortic root. Right ventricular systolic pressure estimated to be 24 mmHg. Diastolic function is indeterminate. Ordering Physician: Desiree Ramesh Referring Physician: Desiree Ramesh Performed By: Makayla Cruz RCS
== END | disposition home or self-care (01) ==
LOC: CVS 12:50
PROVIDERS: PCP Family Medicine; Referring Provider Nurse Practitioner Gerontology; Visit Provider Nurse Practitioner Gerontology
DX: I34.0 Nonrheumatic mitral (valve) insufficiency (principal); R07.9 Chest pain, unspecified
CPT/HCPCS: 93306; Q9957; A4216; C8929

== ENCOUNTER → 2021-08-26 | Outpatient (CLI) | payer MEDICARE, SELFPAY ==
--- NOTE | 2021-08-26 08:01 | BI_ITS ---
MAMMOGRAPHY - BILATERAL SCREENING REASON FOR EXAM: Female, 81 years old. Routine annual screening examination. PERTINENT HISTORY: Aunt with breast cancer. TECHNIQUE: Digital bilateral breast janett (3D mammographic acquisition) in the CC and MLO projections. 2-D mediolateral oblique (MLO) and craniocaudad (CC) views of both breasts were obtained. CAD: Full Field Digital Mammography with Computer Added Detection was performed. COMPARISON: Comparison is made with prior study dated 07/31/2020 and 07/20/2019. FINDINGS: Breast Composition: The breasts are heterogeneously dense, which may obscure small masses. There are no dominant masses or suspicious calcifications. No other significant abnormalities are identified. There has been no significant change since the prior study. BI/SCRN MAMM (CAD)W/JANETT BILAT IMPRESSION: Stable bilateral screening mammogram. Yearly follow-up mammogram recommended. (A) ASSESSMENT CATEGORY: BIRADS Category 1: Negative. A letter regarding these results will be sent to the patient by the facility within 30 days. Approximately 10% of breast cancers are not detected by mammography. A normal mammogram should not delay biopsy of a clinically suspicious abnormality. [id number] Electronically Signed: Elie Newman MD at 8:54 EDT ,
== END | disposition home or self-care (01) ==
LOC: OPBI 08:00
PROVIDERS: PCP Family Medicine; Referring Provider Family Medicine; Visit Provider Family Medicine
DX: Z12.31 Encounter for screening mammogram for malignant neoplasm of breast (principal); Z80.3 Family history of malignant neoplasm of breast
CPT/HCPCS: 77063; 77067

== ENCOUNTER → 2021-09-17 | Outpatient (CLI) | payer MEDICARE, SELFPAY ==
[2021-09-17 12:44] LABS: Vitamin D,25 Hydroxy 96.8 ng/mL
[2021-09-17 12:46] LABS: PTHIN 50.3 pg/mL (18.4-80.1)
[2021-09-17 12:50] LABS: AST(SGOT) 17 U/L (15-37); Alanine Aminotransfer ALT/SGPT 27 U/L (13-56); Albumin, Serum 3.3 g/dL (3.2-5.0); Alkaline Phosphatase 42 U/L (45-117); Anion Gap 6 (5-15); BUN 14 mg/dL (7-18); Calcium,Total 8.9 mg/dL (8.5-10.1); Chloride 100 mmol/L (98-107); Cholesterol 166 mg/dL (200); Creatinine, Serum 0.78 mg/dL (0.55-1.02); EST Glomerular Filtration Rate 76 mL/min (>60); Est Glom Filt Rate - Afr Amer 92 mL/min (>60); Globulin 3.2 g/dL (2.2-4.2); Glucose 96 mg/dL (74-106); High Density Lipoprotein 75 mg/dL; Magnesium 2.1 mg/dL (1.6-2.6); Potassium 3.9 mmol/L (3.5-5.1); Protein, Total 6.5 g/dL (6.4-8.2); Sodium Level 137 mmol/L (136-145); T4 Free Direct 1.22 ng/dL (0.76-1.46); Triglycerides 43 mg/dL; Very Low Density Lipoprotein 9 mg/dL (5-40)
== END | disposition home or self-care (01) ==
LOC: MTLAB 09:48
PROVIDERS: PCP Family Medicine; Referring Provider Family Medicine; Visit Provider Family Medicine
DX: M81.0 Age-related osteoporosis without current pathological fracture (principal); E03.9 Hypothyroidism, unspecified; E55.9 Vitamin D deficiency, unspecified; R55 Syncope and collapse
CPT/HCPCS: 36415; 80053; 80061; 82306; 82330; 83735; 83970; 84439; 84443

== ENCOUNTER → 2022-03-25 | Outpatient (CLI) | payer MEDICARE, SELFPAY ==
[2022-03-25 10:33] LABS: Vitamin D,25 Hydroxy 87.9 ng/mL
[2022-03-25 10:59] LABS: ALB/GLOB Ratio 1.2 RATIO (0.9-2.4); AST(SGOT) 21 U/L (15-37); Alanine Aminotransfer ALT/SGPT 26 U/L (13-56); Albumin, Serum 4.2 g/dL (3.2-5.0); Alkaline Phosphatase 58 U/L (45-117); Anion Gap 10 (5-15); BUN 15 mg/dL (7-18); BUN/Creat Ratio 16.9 RATIO (10-20); Calcium,Total 9.5 mg/dL (8.5-10.1); Chloride 99 mmol/L (98-107); Creatinine, Serum 0.89 mg/dL (0.55-1.02); EST Glomerular Filtration Rate 65 mL/min (>60); Est Glom Filt Rate - Afr Amer 79 mL/min (>60); Globulin 3.4 g/dL (2.2-4.2); Glucose 100 mg/dL (74-106); Potassium 3.7 mmol/L (3.5-5.1); Protein, Total 7.6 g/dL (6.4-8.2); Sodium Level 133 mmol/L (136-145); T4 Free Direct 1.36 ng/dL (0.76-1.46); Thyroid Stim Hormone (TSH) 2.56 uIU/mL (0.358-3.74)
== END | disposition home or self-care (01) ==
PROVIDERS: PCP Family Medicine; Referring Provider Internal Medicine Endocrinology, Diabetes & Metabolism; Visit Provider Internal Medicine Endocrinology, Diabetes & Metabolism
DX: M81.0 Age-related osteoporosis without current pathological fracture (principal); E03.9 Hypothyroidism, unspecified; E55.9 Vitamin D deficiency, unspecified; R55 Syncope and collapse
CPT/HCPCS: 36415; 80053; 82306; 84439; 84443

== ENCOUNTER → 2022-06-29 | Outpatient (CLI) | payer MEDICARE, SELFPAY ==
[2022-06-29 10:48] LABS: Free T3 2.6 pg/mL (2.18-3.98); T4 Free Direct 1.42 ng/dL (0.76-1.46); Thyroid Stim Hormone (TSH) 2.21 uIU/mL (0.358-3.74)
== END | disposition home or self-care (01) ==
LOC: MTLAB 07:13
PROVIDERS: PCP Family Medicine; Referring Provider Internal Medicine Endocrinology, Diabetes & Metabolism; Visit Provider Internal Medicine Endocrinology, Diabetes & Metabolism
DX: E03.9 Hypothyroidism, unspecified (principal); E55.9 Vitamin D deficiency, unspecified; M81.0 Age-related osteoporosis without current pathological fracture
CPT/HCPCS: 36415; 84439; 84443; 84481

== ENCOUNTER → 2022-09-13 | Outpatient (CLI) | payer MEDICARE, SELFPAY ==
[2022-09-13 11:36] LABS: Vitamin D,25 Hydroxy 101.3 ng/mL
[2022-09-13 11:43] LABS: Microalbumin,Random Urine 29.2 mg/L (NO RANGE EST.)
[2022-09-13 11:56] LABS: ALB/GLOB Ratio 1.1 RATIO (0.9-2.4); AST(SGOT) 16 U/L (15-37); Alanine Aminotransfer ALT/SGPT 26 U/L (13-56); Albumin, Serum 3.9 g/dL (3.2-5.0); Alkaline Phosphatase 60 U/L (45-117); Anion Gap 5 (5-15); BUN 9 mg/dL (7-18); BUN/Creat Ratio 10.3 RATIO (10-20); Calcium,Total 9.4 mg/dL (8.5-10.1); Chloride 101 mmol/L (98-107); Cholesterol 192 mg/dL (200); Creatinine, Serum 0.87 mg/dL (0.55-1.02); EST Glomerular Filtration Rate 66 mL/min (>60); Est Glom Filt Rate - Afr Amer 80 mL/min (>60); Free T3 2.4 pg/mL (2.18-3.98); Globulin 3.5 g/dL (2.2-4.2); Glucose 95 mg/dL (74-106); High Density Lipoprotein 88 mg/dL; Potassium 3.3 mmol/L (3.5-5.1); Protein, Total 7.4 g/dL (6.4-8.2); Sodium Level 135 mmol/L (136-145); T4 Free Direct 1.31 ng/dL (0.76-1.46); Triglycerides 65 mg/dL; Very Low Density Lipoprotein 13 mg/dL (5-40)
== END | disposition home or self-care (01) ==
PROVIDERS: PCP Family Medicine; Referring Provider Internal Medicine Endocrinology, Diabetes & Metabolism; Visit Provider Internal Medicine Endocrinology, Diabetes & Metabolism
DX: E03.9 Hypothyroidism, unspecified (principal); M81.0 Age-related osteoporosis without current pathological fracture; E55.9 Vitamin D deficiency, unspecified
CPT/HCPCS: 36415; 80053; 80061; 82043; 82306; 84439; 84443; 84481

== ENCOUNTER → 2022-09-14 | Outpatient (CLI) | payer MEDICARE, SELFPAY ==
--- NOTE | 2022-09-14 13:40 | BI_ITS ---
MAMMOGRAPHY - BILATERAL SCREENING REASON FOR EXAM: Female, 82 years old. Routine annual screening examination. PERTINENT HISTORY: Aunt with breast cancer. TECHNIQUE: Digital bilateral breast janett (3D mammographic acquisition) in the CC and MLO projections. 2-D mediolateral oblique (MLO) and craniocaudad (CC) views of both breasts were obtained. CAD: Full Field Digital Mammography with Computer Added Detection was performed. COMPARISON: Comparison is made with prior study dated August 26, 2021 and July 31, 2020. FINDINGS: Breast Composition: The breasts are heterogeneously dense, which may obscure small masses. There are no dominant masses or suspicious calcifications. No other significant abnormalities are identified. There has been no significant change since the prior study. BI/SCRN MAMM (CAD)W/JANETT BILAT IMPRESSION: Stable bilateral screening mammogram. Yearly follow-up mammogram recommended. (A) ASSESSMENT CATEGORY: BIRADS Category 1: Negative. A letter regarding these results will be sent to the patient by the facility within 30 days. Approximately 10% of breast cancers are not detected by mammography. A normal mammogram should not delay biopsy of a clinically suspicious abnormality. [id number] Electronically Signed: Elie Newman MD at 14:45 EDT ,
== END | disposition home or self-care (01) ==
LOC: OPBI 13:39
PROVIDERS: PCP Family Medicine; Referring Provider Family Medicine; Visit Provider Family Medicine
DX: Z12.31 Encounter for screening mammogram for malignant neoplasm of breast (principal)
CPT/HCPCS: 77063; 77067

== ENCOUNTER → 2022-11-22 | Outpatient (CLI) | payer MEDICARE, SELFPAY ==
[2022-11-22 10:37] LABS: Anion Gap 7 (5-15); BUN 14 mg/dL (7-18); BUN/Creat Ratio 18.5 RATIO (10-20); Calcium,Total 9.2 mg/dL (8.5-10.1); Chloride 95 mmol/L (98-107); Creatinine, Serum 0.76 mg/dL (0.55-1.02); EST Glomerular Filtration Rate 78 mL/min (>60); Est Glom Filt Rate - Afr Amer 95 mL/min (>60); Glucose 99 mg/dL (74-106); Sodium Level 130 mmol/L (136-145)
== END | disposition home or self-care (01) ==
LOC: LAB 09:39
PROVIDERS: PCP Family Medicine; Referring Provider Physician Assistant Medical; Visit Provider Physician Assistant Medical
DX: I10 Essential (primary) hypertension (principal)
CPT/HCPCS: 36415; 80048

== ENCOUNTER → 2022-11-30 | Outpatient (CLI) | payer MEDICARE, SELFPAY ==
[2022-11-30 10:57] LABS: Anion Gap 6 (5-15); BUN 13 mg/dL (7-18); BUN/Creat Ratio 16.6 RATIO (10-20); Calcium,Total 9.1 mg/dL (8.5-10.1); Chloride 103 mmol/L (98-107); Creatinine, Serum 0.78 mg/dL (0.55-1.02); EST Glomerular Filtration Rate 75 mL/min (>60); Est Glom Filt Rate - Afr Amer 91 mL/min (>60); Glucose 89 mg/dL (74-106); Potassium 3.5 mmol/L (3.5-5.1); Sodium Level 135 mmol/L (136-145)
== END | disposition home or self-care (01) ==
LOC: MTLAB 09:09
PROVIDERS: PCP Family Medicine; Referring Provider Physician Assistant Medical; Visit Provider Physician Assistant Medical
DX: I10 Essential (primary) hypertension (principal)
CPT/HCPCS: 36415; 80048

== ENCOUNTER → 2022-12-01 | Outpatient (CLI) | payer MEDICARE, SELFPAY ==
--- NOTE | 2022-12-01 13:46 | ECHOD_ITS ---
Reason For Study: MURMUR Procedure This was a 2D Doppler, Color Flow transthoracic echocardiogram. Exam performed in department. Left Ventricle Normal LV size. Left ventricular systolic function is normal. The estimated ejection fraction is 60 %. Stage 1 diastolic dysfunction. No regional wall motion abnormalities noted. Right Ventricle Normal RV size. Normal systolic function. Atria Normal left atrium. Normal right atrium. Mitral Valve Normal mitral valve. Mild (1+) mitral valve insufficiency. Tricuspid Valve Normal tricuspid valve. Mild (1+) tricuspid valve insufficiency. Pulmonary artery systolic pressure is 32 mmHg. Aortic Valve Trisinus/trileaflet aortic valve. Mild focal aortic valve calcification. Pulmonic Valve Normal pulmonic valve. Great Vessels Normal aortic root. The pulmonary artery is normal size. Normal inferior vena cava. Pericardium/Pleural No pericardial effusion. MMode/2D Measurements & Calculations LVIDd: 3.7 cm IVSd: 0.90 cm Ao root diam: 3.1 cm LVIDs: 2.6 cm LVPWd: 0.84 cm FS: 29.2 % LAV(MOD-sp4): 21.0 ml LVAd ap4: 17.9 cm2 SV(MOD-sp4): 27.0 ml LVLd ap4: 6.3 cm EDV(MOD-sp4): 40.5 ml EDV(sp4-el): 42.9 ml LVAs ap4: 9.0 cm2 LVLs ap4: 5.4 cm ESV(MOD-sp4): 13.5 ml ESV(sp4-el): 12.8 ml EF(MOD-sp4): 66.6 % EF(sp4-el): 70.3 % SV(sp4-el): 30.2 ml LA A4 area: 9.9 cm2 LA dimension(2D): 2.8 cm RA A4 area: 8.3 cm2 TAPSE: 1.9 cm Time Measurements MV dec time: 0.08 sec Doppler Measurements & Calculations MV E max jayme: 50.4 cm/sec Lat Peak E' Jayme: 14.4 cm/sec Med Peak E' Jayme: 13.0 cm/sec MV A max jayme: 94.2 cm/sec E/E' lat: 3.5 E/E' med: 3.9 MV E/A: 0.54 MV V2 max: 121.9 cm/sec Ao V2 max: 105.2 cm/sec MV max P.0 mmHg MV dec slope: 661.5 cm/sec2 Ao max P.4 mmHg MV V2 mean: 65.1 cm/sec Ao V2 mean: 75.3 cm/sec MV mean P.0 mmHg Ao mean P.6 mmHg MV V2 VTI: 27.3 cm Ao V2 VTI: 23.6 cm AV (velocity ratio): 0.94 LV V1 max: 100.1 cm/sec PA V2 max: 106.8 cm/sec TR max jayme: 269.7 cm/sec LV V1 max P.0 mmHg PA V2 mean: 76.5 cm/sec TR max P.1 mmHg LV V1 mean P.3 mmHg LV V1 mean: 71.3 cm/sec LV V1 VTI: 22.2 cm ECHO/Echo Complete Interpretation Summary Normal LV size. Left ventricular systolic function is normal. The estimated ejection fraction is 60 %. Stage 1 diastolic dysfunction. Pulmonary artery systolic pressure is 32 mmHg. Ordering Physician: Linda Trujillo Referring Physician: Linda Trujillo Performed By: Makayla Cruz RCS
== END | disposition home or self-care (01) ==
PROVIDERS: PCP Family Medicine; Referring Provider Physician Assistant Medical; Visit Provider Physician Assistant Medical
DX: R55 Syncope and collapse (principal); I34.0 Nonrheumatic mitral (valve) insufficiency; R01.1 Cardiac murmur, unspecified
CPT/HCPCS: 93306

== ENCOUNTER → 2023-05-09 | Outpatient (CLI) | payer MEDICARE, SELFPAY ==
[2023-05-09 11:20] LABS: Anion Gap 5 (5-15); BUN 14 mg/dL (7-18); BUN/Creat Ratio 15.1 RATIO (10-20); Calcium,Total 9.8 mg/dL (8.5-10.1); Chloride 105 mmol/L (98-107); Creatinine, Serum 0.93 mg/dL (0.55-1.02); EST Glomerular Filtration Rate 62 mL/min (>60); Est Glom Filt Rate - Afr Amer 75 mL/min (>60); Glucose 93 mg/dL (74-106); Potassium 4.1 mmol/L (3.5-5.1); Sodium Level 135 mmol/L (136-145)
== END | disposition home or self-care (01) ==
LOC: MFPLAB 08:33
PROVIDERS: PCP Family Medicine; Visit Provider Family Medicine
DX: I10 Essential (primary) hypertension (principal)
CPT/HCPCS: 36415; 80048

== ENCOUNTER → 2023-08-02 | Outpatient (CLI) | payer MEDICARE, SELFPAY ==
[2023-08-02 10:45] LABS: ALB/GLOB Ratio 1.1 RATIO (0.9-2.4); AST(SGOT) 16 U/L (15-37); Alanine Aminotransfer ALT/SGPT 23 U/L (13-56); Albumin, Serum 3.7 g/dL (3.2-5.0); Alkaline Phosphatase 60 U/L (45-117); Anion Gap 4 (5-15); BUN 11 mg/dL (7-18); Calcium,Total 8.8 mg/dL (8.5-10.1); Chloride 100 mmol/L (98-107); Creatinine, Serum 0.85 mg/dL (0.55-1.02); EST Glomerular Filtration Rate 68 mL/min (>60); Est Glom Filt Rate - Afr Amer 83 mL/min (>60); Globulin 3.4 g/dL (2.2-4.2); Glucose 93 mg/dL (74-106); Potassium 4.1 mmol/L (3.5-5.1); Protein, Total 7.1 g/dL (6.4-8.2); Sodium Level 130 mmol/L (136-145); Thyroid Stim Hormone (TSH) 2.69 uIU/mL (0.358-3.74)
[2023-08-02 11:08] LABS: PTHIN 64.1 pg/mL (18.4-80.1)
[2023-08-02 12:08] LABS: Vitamin D,25 Hydroxy 89.2 ng/mL
== END | disposition home or self-care (01) ==
PROVIDERS: PCP Family Medicine; Referring Provider Internal Medicine Endocrinology, Diabetes & Metabolism; Visit Provider Internal Medicine Endocrinology, Diabetes & Metabolism
DX: M81.0 Age-related osteoporosis without current pathological fracture (principal); E03.9 Hypothyroidism, unspecified; E55.9 Vitamin D deficiency, unspecified
CPT/HCPCS: 36415; 80053; 82306; 82570; 83970; 84443

== ENCOUNTER → 2023-09-13 | Outpatient (CLI) | payer MEDICARE, SELFPAY ==
--- NOTE | 2023-09-13 13:57 | BD_ITS ---
STUDY: DUAL ENERGY X-RAY ABSORPTIOMETRY / DXA REASON FOR EXAM: Female, 83 years old. M810 TECHNIQUE: Bone Mineral Density (BMD) measurements of lumbar spine and bilateral hips were obtained. COMPARISON: Comparison is made with prior study dated July 01, 2021. FINDINGS: Lumbar Spine (L1-L4): g/cm2 (0.967) / T-score (-0.8) / Z-score (1.9) Findings are suggestive of normal bone density with a fracture risk. Left Femur Total: g/cm2 (0.746) / T-score (-1.6) / Z-score (0.5) Left Femoral Neck: g/cm2 (0.581) / T-score (-2.4) / Z-score (-0.1) Right Femur Total: g/cm2 (0.759) / T-score (-1.5) / Z-score (0.6) Right Femoral Neck: g/cm2 (0.599) / T-score (-2.3) / Z-score (0.1) The T-Scores on the most recent prior examination were: Lumbar Spine (L1-L4): There has been improvement of bone density since the previous examination. Left Femur Total: which represents an improvement of 2%. Right Femur Total: which represents a worsening of 0.3%. BD/Dexa Bone Density Study IMPRESSION: The patient is considered osteopenic as outlined below according to World Brian Organization (WHO) criteria with a high fracture risk. There has been improvement of bone density since the previous examination. Reference Information: The T-score is the number of standard deviations above or below the standard which is normal for young adults at their peak bone mineral density. The World Health Organization (WHO) interprets the T-scores as follows: Above -1 Normal bone density Between -1 and -2.5 Osteopenia Equal to / or below -2.5 Osteoporosis As a practical clinical guideline, osteopenia may be graded as follows: Mild -1 through -1.5 Moderate -1.6 through -2.0 Severe -2.1 through -2.4 The Z-score is the number of standard deviations above or below age-matched controls. A Z-score of less than -1.5 would be considered abnormal. References: 1. NIH Osteoporosis and Related Bone Diseases www osteo.org 2. International Society for Clinical Densitometry www iscd.org 3. National Osteoporosis Foundation www nof.org Electronically Signed: Elie Newman MD at 14:54 EDT ,
== END | disposition home or self-care (01) ==
LOC: OPBD 13:52
PROVIDERS: PCP Family Medicine; Referring Provider Internal Medicine Endocrinology, Diabetes & Metabolism; Visit Provider Internal Medicine Endocrinology, Diabetes & Metabolism
DX: M81.0 Age-related osteoporosis without current pathological fracture (principal)
CPT/HCPCS: 77080

== ENCOUNTER → 2023-09-26 | Outpatient (CLI) | payer MEDICARE, SELFPAY ==
--- NOTE | 2023-09-26 08:33 | BI_ITS ---
MAMMOGRAPHY - BILATERAL SCREENING REASON FOR EXAM: Female, 83 years old. Routine annual screening examination. PERTINENT HISTORY: Aunt with breast cancer. TECHNIQUE: Digital bilateral breast janett (3D mammographic acquisition) in the CC and MLO projections. 2-D mediolateral oblique (MLO) and craniocaudad (CC) views of both breasts were obtained. CAD: Full Field Digital Mammography with Computer Added Detection was performed. COMPARISON: Comparison is made with prior study dated September 14, 2022 and August 26, 2021. FINDINGS: Breast Composition: The breasts are heterogeneously dense, which may obscure small masses. There are no dominant masses or suspicious calcifications. No other significant abnormalities are identified. There has been no significant change since the prior study. BI/SCRN MAMM (CAD)W/AJNETT BILAT IMPRESSION: Stable bilateral screening mammogram. Yearly follow-up mammogram recommended. (A) ASSESSMENT CATEGORY: BIRADS Category 1: Negative. A letter regarding these results will be sent to the patient by the facility within 30 days. Approximately 10% of breast cancers are not detected by mammography. A normal mammogram should not delay biopsy of a clinically suspicious abnormality. [id number] Electronically Signed: Elie Newman MD at 9:11 EDT ,
== END | disposition home or self-care (01) ==
LOC: OPBI 08:32
PROVIDERS: PCP Family Medicine; Referring Provider Family Medicine; Visit Provider Family Medicine
DX: Z12.31 Encounter for screening mammogram for malignant neoplasm of breast (principal); Z80.3 Family history of malignant neoplasm of breast
CPT/HCPCS: 77063; 77067

== ENCOUNTER 2023-10-08 12:04 | Emergency (ER) | payer MEDICARE, SELFPAY ==
[2023-10-08 12:04] VITALS: BP 159/98; PULSE 107; RESP 16; TEMP 36.6; O2SAT 98
--- NOTE | 2023-10-08 12:37 | ED.VIS.GI ---
HPI HPI - GI History of Present Illness Chief Complaint: Nausea/Vomiting/Diarrhea Informant: patient and spouse/S.O. Abdominal Pain/Flank Pain Onset: Today and Hours Context: Gradual Onset Timing: Continuous Quality: Cramping Current Severity: Mild Maximum Severity: Mild Nausea/Vomiting/Emesis GI Symptom: Positive for Nausea and Vomiting Onset: Today Severity: Moderate Diarrhea/Melena/Hematochezia GI Symptom: Positive for Diarrhea Stool Quality: Positive for Loose Severity: Mild Associated Symptoms Associated Symptoms: Negative for Dysuria, Frequency, Hematuria or Urgency Narrative Narrative: 83-year-old female with past medical history of vasovagal syncope. States that she woke up this morning around 6:30 AM with abdominal cramping and nausea, vomiting and diarrhea. No hematemesis. No fever. No dysuria. No melena. Said her neighbor recently has been ill and she [place] No one else that she has been exposed that she is aware of is been sick. Prior similar symptoms: Yes Recent Illness/Hospitalization: No PFSH PFSH Medical History Non-rheumatic mitral regurgitation Compression fracture Compression fracture of body of thoracic vertebra Essential hypertension Vasovagal syncope GERD (gastroesophageal reflux disease) Fibromyalgia Hyperlipidemia Paroxysmal tachycardia Hypertension Premature ventricular contraction Premature atrial contractions Home Medications ?Medication ?Instructions ?Recorded ?Last Taken ?Type ascorbic acid (vitamin C) 500 mg 500 mg PO DAILY@0800 01/07/14 01/08/18 History tablet multivitamin,rr-[id number] 27 1 tab PO DAILY 01/07/14 01/08/18 History mg-0.4 mg tablet cholecalciferol (vitamin D3) 50 2,000 unit PO DAILY 02/02/18 Unknown History mcg (2,000 unit) capsule denosumab 60 mg/mL subcutaneous 60 mg subcut [id number] 12/11/18 Unknown History syringe (Prolia) calcium carbonate 500 mg PO DAILY 08/15/20 Unknown History omeprazole 20 mg capsule,delayed 20 mg PO DAILY #90 caps 02/02/21 Unknown Rx release levothyroxine 50 mcg tablet See Rx Instructions PO DAILY 07/09/21 Unknown History (Synthroid) diltiazem HCl 360 mg 360 mg PO DAILY #30 caps 07/28/21 Unknown Rx capsule,extended release 24 hr clonidine HCl 0.1 mg tablet 0.1 mg PO BID 09/10/21 Unknown History buspirone 5 mg tablet 5 mg PO BID 11/22/22 Unknown History spironolactone 25 mg tablet 25 mg PO DAILY #90 tabs 11/30/22 Unknown Rx Allergy/AdvReac Type Severity Reaction Status Date / Time codeine Allergy Unknown Upset Verified 10/08/23 12:07 Stomach fluoride Allergy Rash Verified 10/08/23 12:07 Penicillins Allergy Rash Verified 10/08/23 12:07 Sulfa (Sulfonamide Allergy Rash Verified 10/08/23 12:07 Antibiotics) losartan AdvReac Mild cough Verified 10/08/23 12:07 lisinopril AdvReac cough Verified 10/08/23 12:07 Family History Father , age 59 Myocardial infarction CVA (cerebral vascular accident) Mother Hypertension Surgical History History of lymph node biopsy History of section H/O hysterectomy with oophorectomy Social History current occupational status: retired Smoking Status: Never smoker alcohol intake: current alcohol intake frequency: a few times a week Alcohol type: beer substance use type: does not use caffeine: Yes Type: coffee Number of servings: 2 ROS ROS ED ROS Narrative Nausea, vomiting and diarrhea. Abdominal cramping discomfort. Constitutional Constitutional ED: Denies chills or fever(s) ENT ENT ED: Denies ear pain Cardiovascular Cardiovascular: Denies chest pain Respiratory/Chest Respiratory/Chest: Denies cough Gastrointestinal Gastrointestinal: Reports abdominal pain, diarrhea, nausea and vomiting; Denies constipation or melena Genitourinary Genitourinary ED: Denies dysuria or hematuria Musculoskeletal Musculoskeletal: Denies arthralgias or back pain Integumentary Denies abscess Neurologic Neurologic: Denies headache(s) Psychiatric Psychiatric: Denies anxiety Endocrine Endocrinology: Denies polydipsia Hematologic/Lymphatic Hematologic/Lymphatic: Denies easy bleeding Allergic/Immunologic Allergic/Immunologic ED: Denies mouth swelling, tongue swelling or urticaria EXAM Physical Exam Narrative Exam Narrative: 83-year-old female no acute distress. Vital signs are stable. H EENT exam pupils are reactive light. No facial droop. No trauma. Dry mucous members. Neck nontender no lymphadenopathy. Lungs clear to auscultation. Heart regular rhythm rate about 105 no murmur. Chest wall ribs nontender. Abdomen soft nontender distended. Normal bowel sounds no peritoneal signs. No localizing tenderness. No hernia or mass. No obstruction. Moving all 4 extremities. Nontender no edema. Neurologically she is awake and alert no focal motor deficits. Answering questions following commands. Back nontender. Const Vital Signs: 10/08/23 12:04 Temperature 97.9 F Temperature Source Temporal Pulse Rate 107 H Respiratory Rate 16 Blood Pressure 159/98 H Blood Pressure Mean 118 Pulse Ox 98 Oxygen Delivery Method Room Air Positive well nourished and well developed; Negative for obese, cachectic, contractures or unkempt General Appearance ED: well developed and NAD; Negative for unkempt, cachectic, contractures or pallor Nutritional Appearance: Negative for cachectic or obese HEENT Reports dry mucous membranes; Denies moist mucous membranes normocephalic and atraumatic; Negative for trauma or tenderness Mouth ED: Yes dry mucous membranes Mouth: dry mucous membranes Eyes PERRL and EOMs intact bilaterally General Eye ED: Negative for pale conjunctiva, scleral icterus or other Neck no lymphadenopathy, supple and no JVD General: Negative for tenderness Carotids: Negative for other Resp normal respiratory effort and clear to auscultation bilaterally Effort and Inspection: Negative for respiratory distress Auscultation: Negative for rales, rhonchi, wheezes or diminished lung sounds Cardio regular rhythm, S1 normal heart sound, S2 normal heart sound and no murmurs; Negative for regular rate Rate: tachycardic; Negative for bradycardia Rhythm: Negative for abnormal rhythm GI non-tender, non-distended and no masses Inspection: Negative for abdominal distention Auscultation: normoactive bowel sounds Palpation: soft; Negative for tender, guarding, hernia, mass, pulsatile mass or rebound tenderness present Back/Spine no CVA tenderness Extremity full ROM General Extremety ED: Negative for edema or tenderness General Extremity: Negative for edema Neuro CN's II-XII intact bilaterally and moves all extremities Sensorium / Orientation: alert, oriented to person, oriented to place and oriented to time; Negative for orientation impaired, confused, lethargic or stuporous Motor Exam: strength 5/5 throughout Psych mental status grossly normal and thought process normal Appearance: Negative for unkempt Attitude: No agitated Mood & Affect: Negative for depressed, anxious or tearful Skin no wounds General Skin Exam: Negative for jaundice or pallor Lesions: no lesions Rashes: no rashes Trauma: Negative for abrasion Nails: Negative for discolored MDM MDM MDM Narrative Medical decision making narrative: 83-year-old female nausea vomiting diarrhea suspect viral gastroenteritis. Clinically looks dehydrated. IV fluids. IV Zofran. P.o. fluid challenge. Screening labs. Abdomen is benign. I do not think she needs any imaging at this time. Repeat exam at 1:26 PM patient doing well. Abdomen benign. She received a liter of fluid. Zofran. She still having some nausea give her second dose of Zofran. Will run over her labs. She is comfortable being discharged home. Prescription will be sent to her pharmacy of Zofran [facility]. She knows to follow-up as needed or return if worse. History & Record Review Discussion w/independent historian: Patient and Family Lab Data Attestation: I reviewed the patient's lab results. Lab results narrative: CBC normal. White count 8. H&H 15 and 43. Platelets 339. Electrolytes show sodium 133. Potassium 3.4. Gap 10. Normal BUN 9 creatinine 0.7. Liver enzymes are normal. Labs: Laboratory Results - last 24 hr 10/08/23 12:10 WBC 8.8 RBC 4.86 Hgb 15.2 H Hct 43.4 MCV 89.3 MCH 31.3 MCHC 35.0 RDW Std Deviation 40.1 RDW Coeff of Johan 12.3 Plt Count 339 MPV 9.7 Immature Gran % (Auto) 0.300 Neut % (Auto) 92.8 H Lymph % (Auto) 3.7 L Russell % (Auto) 3.0 Eos % (Auto) 0.0 Baso % (Auto) 0.2 Absolute Neuts (auto) 8.2 H Absolute Lymphs (auto) 0.33 L Nucleated RBC % 0 Sodium 133 L Potassium 3.4 L Chloride 101 Carbon Dioxide 22.0 Anion Gap 10 BUN 9 Creatinine 0.77 Est GFR (MDRD) Af Amer 92 Est GFR (MDRD) Non-Af 76 BUN/Creatinine Ratio 11.6 Glucose 146 H Calcium 9.3 Total Bilirubin 0.70 AST 22 ALT 28 Alkaline Phosphatase 75 Total Protein 8.1 Albumin 4.3 Globulin 3.8 Albumin/Globulin Ratio 1.1 Discharge Plan Triage Chief Complaint: Nausea/Vomiting/Diarrhea ED Provider: Alden Mendez Dx/Rx/DC Orders Clinical Impression: Viral gastroenteritis, Acute dehydration Instructions: ED Gastroenteritis, Viral (Adult) Prescriptions: No Action levothyroxine [Synthroid] 50 mcg tablet See Rx Instructions PO DAILY Rx Instructions: Take 50 mcg 3 times per week and 25 mcg 4 days per week PO daily; Prolia 60 mg/mL syringe 60 mg SC [id number] cholecalciferol (vitamin D3) 2,000 unit capsule 2,000 unit PO DAILY calcium carbonate 500 mg calcium (1,250 mg) tablet 500 mg PO DAILY omeprazole 20 mg capsule,delayed release(DR/EC) 20 mg PO DAILY Qty: 90 3RF clonidine HCl 0.1 mg tablet 0.1 mg PO BID buspirone 5 mg tablet 5 mg PO BID ascorbic acid (vitamin C) 500 MG tablet 500 mg PO DAILY@0800 multivitamin,vn-mzcp-tzqhgalc 1 TABLET tablet 1 tab PO DAILY diltiazem HCl 360 mg capsule,extended release 24hr 360 mg PO DAILY Qty: 30 6RF spironolactone 25 mg tablet 25 mg PO DAILY Qty: 90 3RF Primary Care Provider: Tereso Abrams Referrals: Tereso Abrams MD [Primary Care Provider] - 3-5 Days if not improving Activity Restrictions/Additional Instructions: Plenty of fluids and rest. Slowly increase your diet as tolerated. You most likely have a viral illness that should progressively improve over the next 24 to 72 hours. Zofran as needed for nausea you may swallow and let dissolve on your tongue. Follow-up if not improving or return if worse. Print Language: Hebrew Disposition Disposition: Home, Self Care
[2023-10-08 12:48] LABS: Absolute Lymphocyte Count 0.33 X10^3/uL (0.83-4.51); Absolute Neutrophil Count 8.2 X10^3/uL (2.0-7.7); Basophil# 0.02 X10^3/uL; Basophil% 0.2 % (0-1); Hematocrit 43.4 % (37-47); Hemoglobin 15.2 g/dL (12.0-15.0); Lymphocyte # 0.33 X10^3/ul (0.83-4.51); Lymphocyte % 3.7 % (19-41); Mean Corpuscular Hgb 31.3 pg (27.0-32.0); Mean Corpuscular Volume 89.3 fL (81-99); Mean Platelet Vol. 9.7 fl (6.2-12.0); Monocyte# 0.26 X10^3/uL; NRBC Flagged by Analyzer 0 % (0-5); Neutrophil # 8.17 X10^3/uL (2.7-7.7); Neutrophil % 92.8 % (47-70); POSITIVE DIFFERENTIAL YES; Platelet Count 339 K/mm3 (150-450); RBC Distribution Width CV 12.3 % (11.6-14.6); RBC Distribution Width SD 40.1 fl (35.1-43.9); Red Blood Count 4.86 M/mm3 (4.2-5.4); White Blood Count 8.8 K/mm3 (4.4-11.0)
[2023-10-08 13:04] LABS: ALB/GLOB Ratio 1.1 RATIO (0.9-2.4); AST(SGOT) 22 U/L (15-37); Alanine Aminotransfer ALT/SGPT 28 U/L (13-56); Albumin, Serum 4.3 g/dL (3.2-5.0); Alkaline Phosphatase 75 U/L (45-117); Anion Gap 10 (5-15); BUN 9 mg/dL (7-18); BUN/Creat Ratio 11.6 RATIO (10-20); Calcium,Total 9.3 mg/dL (8.5-10.1); Chloride 101 mmol/L (98-107); Creatinine, Serum 0.77 mg/dL (0.55-1.02); EST Glomerular Filtration Rate 76 mL/min (>60); Est Glom Filt Rate - Afr Amer 92 mL/min (>60); Globulin 3.8 g/dL (2.2-4.2); Glucose 146 mg/dL (74-106); Potassium 3.4 mmol/L (3.5-5.1); Protein, Total 8.1 g/dL (6.4-8.2); Sodium Level 133 mmol/L (136-145)
[2023-10-08 13:57] VITALS: BP 137/73; PULSE 91; RESP 16; TEMP 36.6; O2SAT 99
== END 2023-10-08 14:00 | disposition home or self-care (01) ==
PROVIDERS: Emergency Provider Emergency Medicine; PCP Family Medicine; Visit Provider Emergency Medicine
DX: A08.4 Viral intestinal infection, unspecified (principal); I10 Essential (primary) hypertension; E86.0 Dehydration; E78.5 Hyperlipidemia, unspecified; K21.9 Gastro-esophageal reflux disease without esophagitis; Z79.899 Other long term (current) drug therapy; Z90.710 Acquired absence of both cervix and uterus
CPT/HCPCS: 80053; 85025; 96361; 96374; 96376; 99283; J7030; A4216; J2405

== ENCOUNTER → 2023-11-02 | Outpatient (CLI) | payer MEDICARE, SELFPAY ==
[2023-11-02 12:25] LABS: Erythrocyte Sedimentation Rate 1 mm/hr (0-30)
[2023-11-02 12:29] LABS: Absolute Lymphocyte Count 0.88 X10^3/uL (0.83-4.51); Absolute Neutrophil Count 3.5 X10^3/uL (2.0-7.7); Basophil# 0.06 X10^3/uL; Basophil% 1.2 % (0-1); Eosinophil# 0.06 X10^3/uL; Eosinophils% 1.2 % (0-5); Hematocrit 39.9 % (37-47); Hemoglobin 13.5 g/dL (12.0-15.0); Lymphocyte # 0.88 X10^3/ul (0.83-4.51); Lymphocyte % 17.6 % (19-41); Mean Corp Hgb Conc 33.8 g/dL (32-36); Mean Corpuscular Hgb 31.4 pg (27.0-32.0); Mean Corpuscular Volume 92.8 fL (81-99); Mean Platelet Vol. 10.3 fl (6.2-12.0); NRBC Flagged by Analyzer 0 % (0-5); Neutrophil # 3.47 X10^3/uL (2.7-7.7); Neutrophil % 69.4 % (47-70); Platelet Count 335 K/mm3 (150-450); RBC Distribution Width CV 12.4 % (11.6-14.6); RBC Distribution Width SD 42.5 fl (35.1-43.9)
[2023-11-02 13:00] LABS: Vitamin B12 827 pg/mL (211-911)
[2023-11-02 13:59] LABS: ALB/GLOB Ratio 1.1 RATIO (0.9-2.4); AST(SGOT) 13 U/L (15-37); Alanine Aminotransfer ALT/SGPT 18 U/L (13-56); Albumin, Serum 3.6 g/dL (3.2-5.0); Alkaline Phosphatase 63 U/L (45-117); Anion Gap 7 (5-15); BUN 14 mg/dL (7-18); BUN/Creat Ratio 14.8 RATIO (10-20); CRP < 2.90 mg/L (0.0-3.0); Chloride 103 mmol/L (98-107); Creatinine, Serum 0.94 mg/dL (0.55-1.02); EST Glomerular Filtration Rate 60 mL/min (>60); Est Glom Filt Rate - Afr Amer 73 mL/min (>60); Globulin 3.4 g/dL (2.2-4.2); Glucose 99 mg/dL (74-106); Iron 73 ug/dL (50-170); Potassium 4.9 mmol/L (3.5-5.1); Sodium Level 135 mmol/L (136-145)
== END | disposition home or self-care (01) ==
LOC: MFPLAB 11:07
PROVIDERS: PCP Family Medicine; Visit Provider Family Medicine
DX: R53.83 Other fatigue (principal); R42 Dizziness and giddiness; E03.9 Hypothyroidism, unspecified; M81.0 Age-related osteoporosis without current pathological fracture
CPT/HCPCS: 36415; 80053; 82306; 82533; 82607; 83540; 84443; 85025; 85652; 86140

== ENCOUNTER 2023-11-17 11:00 | Outpatient (RCR) | payer MEDICARE, SELFPAY ==
--- NOTE | 2023-10-19 13:59 | HP.PTEVAL ---
Patient's Visit Information Visit Information Visit Information: DEANA LYNN is a 83 year old F referred to Physical Therapy by Dr. Tereso Abrams MD with a diagnosis of BPPV. Date of Evaluation: 10/19/23 Physical Therapist: Johny Rendon, DPT, OCS, CSCS Visit Plan Frequency: 1-2x /Week Duration: 4-6 Weeks Plan: Likely unilateral vestibular hypofucntions. 1/2x/week for 4-6 asneeded for progression of adaptation and balance ex. started with seated VOR H 30-60 sec 6x/day today Subjective Subjective: Woke up about 2 weeks ago dizzy and vomitting. Er doc said she had a virus(squad) . Nothing in stomach for 4 days. Given meds for dizzyness but did not help. Did bloodwork and said it was a virus. Just in there 3 hours. jJust as sick going home and for four days, then could start to keep food down. miserable if she moved around, more spinning. Last week has bee still inundated with dizzyness described as rocking , not spinning, only spun when went to hospital. No longer vomitting. No LAMAR. Balance is off and hard time getting around. Was put back on flutacortisone a couple months ago for positive tilt table test, vasovagal syncope. Was taken off as blood pressure was up. Sleeping is OK but sleeping with 3 pillows. Not employed. spends day when healthy walking and cleaning and cooking and baking, not doing lately, spending day in bed. Basic ADLs ressing and bathroom today for first time. Objective Objective: Walks slowly with husbands help into PT. Joesvasuers I chair and bed. Normal 3/10 symptoms at rest. - B hallpike marta, - roll test no symptoms. Oculomotor: no nystagmus with gaze or head shake - ocular tilt - skew eye deviation Slight + R head thrust. normal pursuit and saccades, VOR H 30 sec gives 8/10 syptoms for 10 sec, Balance/Special Test Scores Functional Gait Assessment Score: 18 % Disability: 40.0000 Dizziness Score: 62 Goals Goal 1:: dizzyness abolished Goal Time Frame: 4-6 Weeks Goal 2:: balance 22/30 on FGA Goal Time Frame: 4-6 Weeks Goal 3:: Pt feel back to normal activities 90% Goal Time Frame: 4-6 Weeks Rehabilitation Potential Physical Therapy Diagnosis: dizzyness limiting safety adn funciton Rehabilitation Potential: Good Anticipated Interventions Patient/Client Instruction: Educate patient on: Condition and Plan of Care For the Purpose of:: To increase tolerance to activity/condition/position Therapeutic Exercise to Include: Balance training Comment: vesitubular ex adaptation For the Purpose of:: To improve muscle performance and motor function, To increase tolerance to activity/condition/position, To improve ability of physical actions for home/community/work/leisure and To improve gait and locomotor functions Text: Thank you for the opportunity to evaluate your patient. For Medicare and Medicare HMO plans, please review the plan of care and approve it. It will need to be FAXED BACK to us at [phone] for Medicare purposes. For Medicare only, by signing this I certify the plan of care. Please let me know if there are questions or concerns regarding this plan of care. Physician Signature: Date:
--- NOTE | 2023-11-17 11:16 | HP.PTDCSUM ---
Discharge Summary D/C summary: It has been my pleasure to treat DEANA LYNN referred by Dr. Tereso Abrams MD, with the diagnosis of BPPV for a total of 4 visit(s). Discharge Date: 11/17/23 Please see the following information for a summary of their discharge status. Subjective Subjective: Much better and ready to be done with PT. Better each week. Was nauseated at last session. Activities are pretty normal, will start driving and is comfortable with this. Sleeping and rolling in bed. Can get unstable with picking things up but no dizzy. HEP doing well but has avoided last couple days as it was pretty easy. Overall Improvement % Improvement: 98 Objective Objective/Function: FGA is +10 overall and well above normal for her age. No spinning dizzyness with head movements today. Subjectively feeling good. Ready to be done with PT, will have MRI next week and then f/u doctor. Goals Goal 1:: dizzyness abolished Goal Progress: Goal Met Goal 2:: balance / on FGA Goal Progress: Goal Met Goal 3:: Pt feel back to normal activities 90% Goal Progress: Goal Met Plan Plan: d/c D/C Information d/c sentence: If there are questions or concerns regarding this patient's physical therapy, please feel free to call me at [phone]. Thank you for the referral of this patient. Sincerely, Johny Rendon, DPT, OCS, CSCS Balance/Gait/Functional tests Balance/Special Test Scores Functional Gait Assessment Score: 28 % Disability: 6.6700 Dizziness Score: 20 Improvement % Improvement: 98
== END 2023-11-17 13:59 | disposition home or self-care (01) ==
LOC: PT 11:00
PROVIDERS: PCP Family Medicine; Referring Provider Family Medicine; Visit Provider Family Medicine
DX: H81.10 Benign paroxysmal vertigo, unspecified ear (principal)
CPT/HCPCS: 97161; 97530

== ENCOUNTER → 2023-11-28 | Outpatient (CLI) | payer MEDICARE, SELFPAY ==
--- NOTE | 2023-11-28 09:30 | MRI_ITS ---
STUDY: MRI BRAIN WITHOUT CONTRAST REASON FOR EXAM: Female, 83 years old. dizziness, LAMAR for and gt;1 month. TECHNIQUE: Standardized multiplanar fat and water weighted pulse sequences were obtained. COMPARISON: MRI of the brain dated October 20, 2020 FINDINGS: There is moderate cerebral atrophy with widening of the extra-axial spaces and ventricular dilatation. There are a limited number of small white matter hyperintensities, distributed throughout the deep white matter tracts of the cerebral hemispheres, consistent with mild chronic white matter ischemic changes. There is no evidence for recent intracranial ischemia or other cause of cytotoxic edema on diffusion weighted imaging (DWI). Normal T2* images of the brain without demonstrated susceptibility artifact. There is no demonstrated hemosiderin stain. Normal bilateral frontal poles, and orbital frontal and gyrus recti of the frontal lobes. Normal bilateral temporal tips of the temporal lobes. There are no white matter shear injuries (diffuse axonal injuries). There are no parenchymal hemorrhages or hematomas. There are no findings to suggest prior closed head parenchymal injury of the brain. Normal bilateral basal ganglia. Normal thalami. There is no extra-axial fluid accumulation. Normal flow voids within the major intracranial circulation suggesting patency by spin echo criteria. Normal sella turcica, pituitary gland, infundibular stalk, optic chiasm and hypothalamus. Normal tectal plate and pineal gland. Normal midbrain, [place] and medulla. 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 Normal basal cisterns. Normal bilateral temporal bones. Normal bilateral internal auditory canals. No demonstrated orbital abnormality, within the constraints of a routine brain study. Normal visualized paranasal sinuses. Normal calvarium and skull base. Normal visualized soft tissue structures. Normal visualized upper cervical spine. MRI/Brain without Contrast IMPRESSION: 1. 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 Electronically Signed: Norberto Mike MD at 12:29 EDT ,
== END | disposition home or self-care (01) ==
PROVIDERS: PCP Family Medicine; Referring Provider Family Medicine; Visit Provider Family Medicine
DX: R42 Dizziness and giddiness (principal); R51.9 Headache, unspecified
CPT/HCPCS: 70551

== ENCOUNTER → 2023-12-26 | Outpatient (CLI) | payer MEDICARE, SELFPAY ==
--- NOTE | 2023-12-26 14:43 | CT_ITS ---
INDICATION: R cerebellar CVA. EXAMINATION: CTA NECK - CTA Neck WO/W Contrast Injection TECHNIQUE: Routine carotid CT angiogram protocol was performed without and with IV contrast. NASCET criteria using the distal ICAs for comparison were used for evaluation of stenoses. 3D reconstructions were reviewed. The protocol utilizes one or more of the following dose reduction techniques: automated exposure control, adjustment of mA and/or kV according to patient size,and/or use of iterative reconstruction technique. IV Contrast dosage and agent: 100 cc of Isovue-370 RADIATION DOSAGE (If Supplied By Facility): CTDIvol = ( 16.08 ) mGy, DLP = ( 303.57 ) mGycm COMPARISON: Prior study dated: 01/09/2018 FINDINGS: AORTIC ARCH AND BRANCHES: Normal anatomy, patent. RIGHT CCA: No occlusion, significant stenosis or dissection. RIGHT ICA: No occlusion, significant stenosis or dissection. LEFT CCA: No occlusion, significant stenosis or dissection. Minimal atherosclerotic calcifications in the left bulb region. LEFT ICA: No occlusion, significant stenosis or dissection. RIGHT VERTEBRAL ARTERY: No occlusion, significant stenosis or dissection. LEFT VERTEBRAL ARTERY: No occlusion, significant stenosis or dissection. NECK SOFT TISSUES: Unremarkable. LUNG APICES: Clear. BONES: Degenerative changes of the cervical spine. CT/CTA Neck W/WO Contrast IMPRESSION: Essentially unremarkable CTA Neck. Electronically Signed: Davian Sexotn MD at 15:18 EST ,
[2023-12-26 15:23] LABS: CREATININE FINGERSTICK < 1.0 mg/dL (0.55-1.02); EGFR FINGERSTICK > 60.0000 mL/min (>60)
== END | disposition home or self-care (01) ==
LOC: CT 14:41
PROVIDERS: PCP Family Medicine; Referring Provider Family Medicine; Visit Provider Family Medicine
DX: Z86.73 Personal history of transient ischemic attack (TIA), and cerebral infarction without residual deficits (principal)
CPT/HCPCS: 70498; Q9967

== ENCOUNTER → 2024-02-23 | Outpatient (CLI) | payer MEDICARE, SELFPAY ==
[2024-02-23 10:35] LABS: Vitamin D,25 Hydroxy 67.6 ng/mL
[2024-02-23 10:48] LABS: ALB/GLOB Ratio 1.1 RATIO (0.9-2.4); AST(SGOT) 22 U/L (15-37); Alanine Aminotransfer ALT/SGPT 29 U/L (13-56); Albumin, Serum 3.7 g/dL (3.2-5.0); Alkaline Phosphatase 57 U/L (45-117); Anion Gap 9 (5-15); BUN 16 mg/dL (7-18); BUN/Creat Ratio 13.7 RATIO (10-20); Calcium,Total 9.5 mg/dL (8.5-10.1); Chloride 101 mmol/L (98-107); Creatinine, Serum 1.17 mg/dL (0.55-1.02); EST Glomerular Filtration Rate 47 mL/min (>60); Est Glom Filt Rate - Afr Amer 57 mL/min (>60); Free T3 2.4 pg/mL (2.18-3.98); Globulin 3.3 g/dL (2.2-4.2); Glucose 93 mg/dL (74-106); Sodium Level 133 mmol/L (136-145); T4 Free Direct 1.36 ng/dL (0.76-1.46)
== END | disposition home or self-care (01) ==
LOC: MTLAB 08:16
PROVIDERS: PCP Family Medicine; Referring Provider Internal Medicine Endocrinology, Diabetes & Metabolism; Visit Provider Internal Medicine Endocrinology, Diabetes & Metabolism
DX: E03.9 Hypothyroidism, unspecified (principal); E55.9 Vitamin D deficiency, unspecified; M81.0 Age-related osteoporosis without current pathological fracture
CPT/HCPCS: 36415; 80053; 82306; 84439; 84443; 84481

== ENCOUNTER → 2024-03-07 | Outpatient (CLI) | payer MEDICARE, SELFPAY ==
[2024-03-07 12:33] LABS: Anion Gap 6 (5-15); BUN 14 mg/dL (7-18); BUN/Creat Ratio 15.3 RATIO (10-20); Calcium,Total 9.8 mg/dL (8.5-10.1); Chloride 102 mmol/L (98-107); Creatinine, Serum 0.92 mg/dL (0.55-1.02); EST Glomerular Filtration Rate 63 mL/min (>60); Est Glom Filt Rate - Afr Amer 76 mL/min (>60); Glucose 97 mg/dL (74-106); Potassium 4.5 mmol/L (3.5-5.1); Sodium Level 135 mmol/L (136-145)
== END | disposition home or self-care (01) ==
LOC: MFPLAB 10:07
PROVIDERS: PCP Family Medicine; Referring Provider Family Medicine; Visit Provider Family Medicine
DX: I10 Essential (primary) hypertension (principal)
CPT/HCPCS: 36415; 80048

== ENCOUNTER → 2024-07-31 | Outpatient (CLI) | payer MEDICARE, SELFPAY ==
[2024-07-31 11:32] LABS: AST(SGOT) 21 U/L (<=31); Alanine Aminotransfer ALT/SGPT 19 U/L (<=34); Albumin, Serum 4.5 g/dL (3.4-4.8); Alkaline Phosphatase 69 U/L (35-104); Bilirubin, Direct 0.27 mg/dL (0.00-0.30); Cholesterol 136 mg/dL (<=200); Globulin 2.8 g/dL (2.2-4.2); High Density Lipoprotein 74 mg/dL; Low Density Lipoprotein Calc. 53 mg/dL; Protein, Total 7.3 g/dL (5.9-8.4); Total Bilirubin 0.61 mg/dL (0.00-1.30); Triglycerides 46 mg/dL; Very Low Density Lipoprotein 9 mg/dL (5-40); cholesterol:hdl ratio screen 1.83
== END | disposition home or self-care (01) ==
LOC: LAB 09:25
PROVIDERS: PCP Family Medicine; Referring Provider Physician Assistant Medical; Visit Provider Physician Assistant Medical
DX: E78.5 Hyperlipidemia, unspecified (principal); Z86.73 Personal history of transient ischemic attack (TIA), and cerebral infarction without residual deficits
CPT/HCPCS: 36415; 80061; 80076

== ENCOUNTER → 2024-10-02 | Outpatient (CLI) | payer MEDICARE, SELFPAY ==
--- NOTE | 2024-10-02 08:03 | BI_ITS ---
EXAM: SCRN MAMM (CAD)W/JANETT BILAT DATE: 10/02/2024 CLINICAL HISTORY: F, Age 84 y/o , SCREENING TECHNIQUE: SCRN MAMM (CAD)W/JANETT BILAT COMPARISON: Prior exam(s) dated 09/26/2023, 09/14/2022, 08/26/2021. FINDINGS: TISSUE DENSITY: There are scattered areas of fibroglandular density. Bilateral Breast Mammographic Findings: No significant masses, calcifications or other abnormalities are identified. BI/SCRN MAMM (CAD)W/JANETT BILAT IMPRESSION: There is no mammographic evidence of malignancy. OVERALL FINAL ASSESSMENT BI-RADS 1: NEGATIVE. RECOMMENDATION: Routine annual follow-up in 1 Year A letter with findings and recommendations will be mailed to the patient. Reading Location: [id number]
== END | disposition home or self-care (01) ==
LOC: OPBI 08:01
PROVIDERS: PCP Family Medicine; Referring Provider Family Medicine; Visit Provider Family Medicine
DX: Z12.31 Encounter for screening mammogram for malignant neoplasm of breast (principal)
CPT/HCPCS: 77063; 77067